=== PATIENT | female | born 1980 ===

== ENCOUNTER 2019-08-26 08:16 | Outpatient (CLI) | payer OTHER, SELFPAY ==
--- NOTE | ~2019-08-26 | CT_ITS ---
EXAMINATION: CT chest wo con EXAM DATE: 08/26/2019 08:46 INDICATION: Solitary pulmonary nodule. Reflux. TECHNIQUE: Spiral CT of the chest without contrast. Axial, coronal and sagittal images were reviewe d. Coronal maximum intensity pixel images of chest reviewed. The dose-length product (DLP) for this examination was 117.52 mGy-cm. The exposure was tailored according to patient size (auto mA exposur e control), and iterative reconstruction (ASIR) was used as additional dose reduction technique. The re is no prior study for comparison. FINDINGS: The lungs are clear. There are no pleural or pericardial effusions. Tracheobronchial t ree is patent. There is no mediastinal, hilar or axillary lymphadenopathy. There is no pneumothor ax. Heart normal in size. No evidence of coronary arterial calcification. Upper abdomen is unrem arkable. The bones are unremarkable. IMPRESSION: 1. Unremarkable CT chest exam. Reviewed, dictated and finalized at location B.
== END 2019-08-26 08:17 | disposition home or self-care (01) ==
PROVIDERS: PCP Emergency Medicine; Visit Provider Emergency Medicine
DX: R91.1 Solitary pulmonary nodule (principal)
CPT/HCPCS: 71250

== ENCOUNTER 2022-09-24 23:15 | Emergency (ER) | payer MEDICARE, MEDICAID, SELFPAY ==
--- NOTE | ~2022-09-24 | XR_ITS ---
Clinical Indication: Chest pain PA and lateral views of the chest: Comparison: None Findings: The lungs are clear, without evidence of focal consolidation or pleural effusion. Cardiome diastinal silhouette is within normal limits. Bones and soft tissues are unremarkable. Impression: Normal chest. Reviewed, dictated and finalized at location . Impression: Normal chest.
--- NOTE | 2022-09-24 23:17 | ECG_ITS ---
Measurements Intervals [place] Rate: 74 P: 33 [place]: 164 QRS: 59 QRSD: 102 T: 41 QT: 392 QTc: 437 Interpretive Statements SINUS RHYTHM NONSPECIFIC T-WAVE ABNORMALITY NO PREVIOUS ECG AVAILABLE FOR COMPARISON Electronically Signed On 09-25-2022 13:58:13 CDT by Kat Gómez M.D.
[2022-09-24 23:30] VITALS: BP 162/105; PULSE 67; RESP 16; TEMP 36.6; O2SAT 100
[2022-09-25] VITALS (8 sets, daily range): BP systolic 173; BP diastolic 109; PULSE 69; RESP 19; O2SAT 97–100
[2022-09-25 00:36] LABS: Basophils Absolute Auto 0.1 K/mm3 (0.0-0.1); Basophils Percent Auto 0.5 % (0.2-1.2); Eosinophils Absolute Auto 0.3 K/mm3 (0-0.3); Eosinophils Percent Auto 2.8 % (0-4.4); Hematocrit 36.3 % (37.0-47.0); Hemoglobin 11.3 g/dL (12.0-15.0); Immature Granulocyte Absolute 0.04 K/mm3 (0.00-0.031); Immature Granulocyte Percent A 0.4 % (0-0.5); Lymphocytes Absolute Auto 2.69 K/mm3 (0.9-3.2); Lymphocytes Percent Auto 28.3 % (18.3-44.2); Mean Corpuscular HGB Conc 31.1 g/dl (32-36); Mean Corpuscular Hemoglobin 25.5 pg (26-34); Mean Corpuscular Volume 81.8 fl (80-100); Mean Platelet Volume 10.2 fl (7.4-10.4); Monocytes Absolute Auto 0.6 K/mm3 (0.1-0.6); Neutrophils Absolute Auto 5.9 K/mm3 (1.3-6.7); Platelet Count Result 358 k/mm3 (150-375); Red Blood Count 4.44 M/mm3 (4.2-5.4); Red Cell Distribution Width 15.6 % (11.5-14.5); White Blood Count 9.5 K/mm3 (4.5-10.0)
[2022-09-25 00:42] LABS: INR 1.1; Prothrombin Time 14.4 Seconds (11.1-14.7)
[2022-09-25 00:43] LABS: Partial Thromboplastin Time 33.1 SECONDS (22.3-36.8)
[2022-09-25 00:44] LABS: Alanine Aminotransferase 20 U/L (6-35); Albumin Level 4.3 g/dL (3.5-5.1); Alkaline Phosphatase 65 U/L (38-126); Anion Gap 3 mmol/L (8-16); Aspartate Amino Transferase 29 U/L (14-36); Bilirubin,Total 0.3 mg/dL (0.2-1.3); Blood Urea Nitrogen 6 mg/dL (7-17); Calcium 8.7 mg/dL (8.4-10.2); Carbon Dioxide 30 mmol/L (22-30); Chloride 102 mmol/L (98-107); Estimated CRCL calculation 100 ml/min; Estimated Glomerular Filt Rate > 60; Glucose 98 mg/dL (65-110); Lipase 60 U/L (23-300); Potassium 3.1 mmol/L (3.4-5.0); Sodium 135 mmol/L (137-145)
[2022-09-25 00:56] LABS: Troponin I 0.026 ng/mL (0.000-0.034)
--- NOTE | 2022-09-25 01:17 | ED.GENADULT ---
HPI - General Adult General Chief complaint: Headache Stated complaint: chest pain, headaches Time Seen by Provider: 09/25/22 00:43 Source: patient Mode of arrival: ambulatory Limitations: no limitations History of Present Illness HPI narrative: This is a 42-year-old female who presents to the ED with multiple complaints. Patient states her primary complaint today is headache that is similar to her past migraines. She states she had some blurry vision earlier that has resolved. She also reports pain in her eyes. Headache was gradual in onset today. Denies any head injury or LOC. Denies numbness, weakness or other neurologic symptoms. He has secondary complaints of chest pain. She states that she has had 2 failed attempts at treating her H. pylori infection. She describes her chest pain more as a burning sensation. She feels it is likely related to her H. pylori. She states she did not take her omeprazole today. No association with exertion. Denies shortness of breath, cough, fevers, chills, leg swelling. Related Data Allergies Allergy/AdvReac Type Severity Reaction Status Date / Time No Known Allergies Allergy Verified 09/25/22 01:49 Exam Narrative: GENERAL: Well-appearing, well-nourished, and in no acute distress. HEAD: Normocephalic, atraumatic. EYES: PERRLA and EOMI. ENT: Nares clear, no rhinorrhea or epistaxis. Mucous membranes moist. Oropharynx without tonsillar hypertrophy exudate or other lesions. NECK: Supple. No adenopathy or masses. CHEST: No respiratory distress. Clear to auscultation. No wheezes rales or rhonchi HEART: Regular rate and rhythm. No murmur heard. Normal peripheral pulses. ABDOMEN: Soft, nontender, nondistended, normal active bowel sounds. MSK: Normal range of motion. No edema. SKIN: Warm, dry, no rash. NEURO: Alert and oriented x3. No focal deficits. PSYCH: Normal mood and affect. Course Vital Signs Vital signs: Vital Signs Temperature 97.8 F 09/24/22 23:30 Pulse Rate 67 09/24/22 23:30 Respiratory Rate 16 09/24/22 23:30 Blood Pressure 162/105 H 09/24/22 23:30 Pulse Oximetry 100 09/24/22 23:30 Oxygen Delivery Room Air 09/24/22 23:30 Temperature 97.8 F 09/24/22 23:30 Pulse Rate 67 09/24/22 23:30 Respiratory Rate 16 09/24/22 23:30 Blood Pressure 162/105 H 09/24/22 23:30 Pulse Oximetry 100 09/24/22 23:30 Oxygen Delivery Room Air 09/24/22 23:30 Medical Decision Making MDM Narrative Medical decision making narrative: This is a 42-year-old female who presents to the ED with chief complaint of migraine headache and chest pain. Headache started today gradually. Chest pain is chronic. Vitals are normal. Exam is benign. ECG shows sinus rhythm with no acute ischemic findings. PERC negative. Heart score is 1. Troponin negative. Lab work unremarkable. Her chest pain is likely consistent with GERD. Migraine controlled with headache cocktail here. Fluids given as well. Upon reevaluation she is feeling much better ready to go home. Advised that she follow-up with her PCP regarding headaches. Return precautions given and supportive measures for home discussed. She is understanding and agreeable with the plan for discharge and follow-up with PCP. Vital Signs Vital Signs: Vital Signs Temperature 97.8 F 09/24/22 23:30 Pulse Rate 67 09/24/22 23:30 Respiratory Rate 16 09/24/22 23:30 Blood Pressure 162/105 H 09/24/22 23:30 Pulse Oximetry 100 09/24/22 23:30 Oxygen Delivery Room Air 09/24/22 23:30 Temperature 97.8 F 09/24/22 23:30 Pulse Rate 67 09/24/22 23:30 Respiratory Rate 16 09/24/22 23:30 Blood Pressure 162/105 H 09/24/22 23:30 Pulse Oximetry 100 09/24/22 23:30 Oxygen Delivery Room Air 09/24/22 23:30 Lab Data 09/25/22 00:15 09/25/22 00:15 Labs: Lab Results 09/25/22 Range/Units 00:15 WBC 9.5 (4.5-10.0) K/mm3 RBC 4.44 (4.2-5.4) M/mm3 Hgb
[2022-09-25] MEDS: diphenhydrAMINE HCl INJ 50 MG/ML VIAL 25 MG IV PUSH (01:42)
[2022-09-25] MEDS: BELLADONNA ALK/PHENOB ELIX 10 ML, MAG HYDROX/ALUMINUM HYD/SIMETH 30 ML, LIDOCAINE HCL 2... PO (01:43)
[2022-09-25] MEDS: SODIUM CHLORIDE 0.9% IV 1,000 ML 999 ML IV CONT (01:43)
[2022-09-25] MEDS: KETOROLAC 15 MG/ML VIAL (*BKC) IV PUSH (02:45)
[2022-09-25] MEDS: PROCHLORPERAZINE EDISYLATE 10 MG/2 ML VIAL IV PUSH (02:54)
[2022-09-25 03:34] LABS: Troponin I 0.025 ng/mL (0.000-0.034)
== END 2022-09-25 03:38 | disposition home or self-care (01) ==
PROVIDERS: Emergency Medicine; Emergency Provider Physician Assistant; PCP Family Medicine
DX: R51.9 Headache, unspecified (principal); R07.9 Chest pain, unspecified
CPT/HCPCS: 36415; 71046; 80053; 83690; 84484; 85025; 85610; 85730; 93005; 96361; 96374; 96375; 99284; A9270; J0780; J1200; J1885; J7030

== ENCOUNTER 2023-09-22 10:24 | Emergency (ER) | payer MEDICARE, MEDICAID, SELFPAY ==
[2023-09-22 10:49] VITALS: BP 154/110; PULSE 93; RESP 16; TEMP 36.4; O2SAT 99
[2023-09-22 10:52] LABS: EDUAAPPEAR Clear; EDUABILI Negative; EDUABLOOD Trace; EDUACOLOR1 Yellow; EDUAGLUCOSE Negative; EDUAKETONE Negative; EDUALEUKO Negative; EDUANITRATE Negative; EDUAPROTEIN Negative; EDUASPGRAVITY 1.015; EDUAUROBILI 0.2
--- NOTE | 2023-09-22 10:59 | ED.FEMALEGU ---
HPI - Female Genitourinary General Chief complaint: Urogenital-Female Stated complaint: urinary issue,abdominal pain Time Seen by Provider: 09/22/23 10:52 Source: patient and RN notes reviewed Mode of arrival: ambulatory Limitations: no limitations History of Present Illness HPI Narrative: Patient presents today complaining of a one-week history of malodorous urine, urgency, frequency, voiding small amounts. Symptoms have worsened over the past 3 days. Patient states she does have some chronic pelvic pain due to fibroids, and this is no worse than normal. No fever, nausea or vomiting, sweats or chills. Related Data Home Medications Medication Instructions Recorded Confirmed atenolol 50 mg tablet 50 mg PO DAILY 09/22/23 09/22/23 Allergies Allergy/AdvReac Type Severity Reaction Status Date / Time No Known Allergies Allergy Verified 09/25/22 01:49 Review of Systems Review of Systems: CONSTITUTIONAL: Denies body aches, fever, chills, or sweats. EYES: Denies visual changes, redness, or discharge. ENT: Denies rhinorrhea, congestion, sore throat, or otalgia. CARDIOVASCULAR: Denies chest pain, palpitations, or edema. RESPIRATORY: Denies cough or dyspnea. GASTROINTESTINAL: Denies abdominal pain, nausea, vomiting, or diarrhea. GENITOURINARY: + urgency, frequency, malodorous urine SKIN: Denies rash, itching, or wounds. MUSCULOSKELETAL: Denies back pain, joint pain, or myalgia. NEUROLOGIC: Denies headache, numbness, tingling, or weakness. PSYCH: Denies depression or anxiety. [facility] Past Medical History Medical History (Updated 09/22/23 @ 11:02 by Elida Jiménez, [facility], ) Uterine fibroid Comments At time of signature, I have reviewed and agree with nursing past medical, surgical, social and family history unless otherwise noted. Please see nursing chart for further information. There is no relevant family history pertinent to the presenting complaint Exam Narrative: GENERAL: Well-appearing, well-nourished, and in no acute distress. HEAD: Normocephalic, atraumatic. EYES: EOMI. No redness or drainage. Conjunctivae normal. ENT: Mucous membranes pink and moist. NECK: Normal AROM. CHEST: No respiratory distress. Clear to auscultation. HEART: Regular rate and rhythm. No murmur appreciated. Normal peripheral pulses. ABDOMEN: Soft, nondistended, normal active bowel sounds.+ suprapubic tenderness EXTREMITIES: Normal range of motion. No edema. SKIN: Warm, dry, no rash. Capillary refill normal. Normal skin turgor. NEURO: No focal deficits. Alert and oriented x3. Gait steady. PSYCH: Normal affect. No signs of depression or anxiety. Course Course Level of Care: Express Care Visit Vital Signs Vital signs: Vital Signs Temperature 97.5 F L 09/22/23 10:49 Pulse Rate 93 09/22/23 10:49 Respiratory Rate 16 09/22/23 10:49 Blood Pressure 154/110 H 09/22/23 10:49 Pulse Oximetry 99 09/22/23 10:49 Oxygen Delivery Room Air 09/22/23 10:49 Temperature 97.5 F L 09/22/23 10:49 Pulse Rate 88 09/22/23 11:12 Respiratory Rate 18 09/22/23 11:12 Blood Pressure 182/112 H 09/22/23 11:12 Pulse Oximetry 99 09/22/23 11:12 Oxygen Delivery Room Air 09/22/23 11:12 Reviewed. Patient states she is on blood pressure medication and takes as directed MDM - Female Genitourinary MDM Narrative Medical decision making narrative: Urinalysis shows hematuria. She is not currently menstruating. Symptomatology with hematuria is consistent with UTI. Will start patient on a course of Augmentin while culture is pending. Anticipatory guidance given. Differential Diagnosis Differential diagnosis: Likely urinary tract infection, vaginitis and cystitis Lab Data Labs: Lab Results 09/22/23 Range/Units 10:50 POC Urine Color Yellow POC Urine Clarity Clear POC Urine pH 6.0 POC Ur Specif [place] 1.015 POC Urine Protein Negative POC Ur Glucose (UA) Negative POC Urine Ket
[2023-09-22 11:12] VITALS: BP 182/112; PULSE 88; RESP 18; O2SAT 99
== END 2023-09-22 11:11 | disposition home or self-care (01) ==
PROVIDERS: Emergency Provider Nurse Practitioner; PCP Family Medicine
DX: N30.01 Acute cystitis with hematuria (principal)
CPT/HCPCS: 81003; 87086; 99213; G0463

== ENCOUNTER 2023-12-01 20:59 | Emergency (ER) | payer MEDICARE, MEDICAID, SELFPAY ==
[2023-12-01 21:13] VITALS: BP 176/102; PULSE 86; RESP 16; TEMP 36.6; O2SAT 100
--- NOTE | 2023-12-01 22:43 | ED.SKABFB ---
HPI - Skin/Abscess/Foreign Bdy General Chief complaint: Skin/Abscess/Foreign Body Stated complaint: R big toe ingrown nail Time Seen by Provider: 12/01/23 22:20 History of Present Illness HPI narrative: 43-year-old female with history of hypertension presents to the emergency department for right great toe pain and concerns for an ingrown toenail for 3 days. Patient states she has a history of ingrown toenails of this toe and she was seen by a photo intern previously for it. States it began causing her issues 3 days ago. She denies fever, vomiting. Related Data Home Medications Medication Instructions Recorded Confirmed atenolol 50 mg tablet 50 mg PO DAILY 09/22/23 09/22/23 Allergies Allergy/AdvReac Type Severity Reaction Status Date / Time No Known Allergies Allergy Verified 12/01/23 21:02 Review of Systems Review of Systems: All systems reviewed & are unremarkable except as noted in HPI and below PMFSH Past Medical History Medical History Uterine fibroid Exam Narrative: GENERAL: Well-appearing, well-nourished, and in no acute distress. HEAD: Normocephalic, atraumatic. EYES: EOMI. ENT: Nares clear, no rhinorrhea or epistaxis. Mucous membranes moist. NECK: Supple. CHEST: Clear to auscultation. No respiratory distress. HEART: Regular rate and rhythm. No murmur heard. Normal peripheral pulses. EXTREMITIES: Normal range of motion. No edema. SKIN: right great toe with paronychia to the lateral nail fold with a focal area of fluctuance that is actively draining purulence. There is surrounding erythema, it is tender to palpation. Ingrown toenail to the lateral nail fold. Patient has full range of motion of toe, cap refills less than 2. Sensation intact. NEURO: No focal deficits. Alert and oriented x3 Course Vital Signs Vital signs: Vital Signs Temperature 98 F 12/01/23 21:13 Pulse Rate 86 12/01/23 21:13 Respiratory Rate 16 12/01/23 21:13 Blood Pressure 176/102 H 12/01/23 21:13 Pulse Oximetry 100 12/01/23 21:13 Temperature 98 F 12/01/23 21:13 Pulse Rate 86 12/01/23 21:13 Respiratory Rate 16 12/01/23 21:13 Blood Pressure 176/102 H 12/01/23 21:13 Pulse Oximetry 100 12/01/23 21:13 MDM - Skin/Abscess/Foreign Bdy MDM Narrative Medical decision making narrative: 33-year-old female with history of ingrown toenails and paronychia as presents to emergency department for pain to her right toe for 3 days. Triage vitals with hypertension 176/2. Patient does have history of hypertension and takes lisinopril as directed. On exam she is found have an ingrown toenail and paronychia to the right great toe of the lateral nail fold. It is spontaneously draining purulence and I was able to express remainder purulence with manual manipulation I discussed close follow-up with her photo intern. Will start her on Augmentin. Strict ED return precautions discussed. She is agreeable to plan verbalized understanding. Discharged in stable condition. Discharge Plan Discharge Clinical Impression: Paronychia Patient Disposition: Home, Self-Care Condition: Stable Instructions: Antibiotic Form, Paronychia (ED) Additional Instructions: Please take the antibiotics as directed follow-up with your photo intern. Return to the emergency department if you develop a fever, significantly worsening pain, or other concerning symptoms. Prescriptions: New amoxicillin-pot clavulanate 875-125 mg tablet 1 tablet PO Q12H Qty: 14 0RF No Action atenolol 50 mg tablet 50 mg PO DAILY amoxicillin-pot clavulanate 875-125 mg tablet 1 tablet PO Q12H 7 Days Qty: 14 0RF Follow-up/Referrals: Jennifer,MD George [Primary Care Provider] -
[2023-12-01] MEDS: AMOXICILLIN/CLAVULANATE K 875-125 MG TAB 1 TABLET PO (23:09)
[2023-12-01] MEDS: KETOROLAC 30 MG/ML VIAL (*BKC) IM (23:12)
== END 2023-12-01 23:15 | disposition home or self-care (01) ==
LOC: ANHED 22:55
PROVIDERS: Emergency Provider Physician Assistant; PCP Family Medicine
DX: L03.031 Cellulitis of right toe (principal)
CPT/HCPCS: 96372; 99283; A9270; J1885

== ENCOUNTER 2024-09-13 07:58 | Emergency (ER) | payer MEDICARE, MEDICAID, SELFPAY ==
--- OUTSIDE RECORDS SUMMARY | 2024-09-13 08:00 | XMS_ITS | Patient Health Record ---
Author Organization [facility], [facility] Address [address] [address] Care Team Providers Care Safety Director Name Role Phone Florentino Barone Primary Care Provider [phone] Reason For Referral No Information Medications Medication SIG (Take, Route, Frequency, Duration) Notes Start Date End Date Status Meloxicam 7.5 MG 1 tablet Orally Once a day Active Dexilant 60 MG 1 capsule Orally Onc e a day Active PARoxetine HCl 30 MG 1 tablet in the mor collins Orally Once a day Active Gabapentin 300 MG 1 capsule Orally Thr ee times a day Active Iron 1 tablet Orally thre e times a day Active Zolpidem Tartrate 5 MG 1 tablet at bedti me Orally Once a day Active SUMAtriptan Succinate 25 MG 1 tablet as needed Orally Once a day Active tiZANidine HCl 2 MG 1 tablet as needed O rally twice a day Active Ranitidine HCl 300 MG 1 tablet at bedtim e Orally Once a day Active Social History Tobacco Use: Social History Observation Description Date Details (start date - stop date) Never Smoker NA - NA Tobacco Use/Smoking Question Answer Notes Are you a nonsmoker Additional Findings: Tobacco Non-User Current no n-smoker Tobacco use other than smoking: Question Answer Notes Are you an other tobacco user? No Problems Problem Type SNOMED Code ICD Code Onset Dates Problem Status W/U Status Risk Notes Problem 0254176 Primary insomnia (F51.01) Active confirmed Problem 309077585952519 Pain in thoracic spine (M54.6) Active confirmed Problem 44781571 Anxiety (F41.9) Active confirmed Problem 047631920 Gastroesophageal reflux disease without esophagitis (K21.9) Active confirmed Problem 4145614 Migraine with au ra and without status migrainosus, not intractable (G43.109) Active confirmed Problem 23469631 Kidney stone (N20.0) Active confirmed Plan Of Treatment No Information Insurance Providers Payer Name Payer Address Payer Phone Subscriber Number Group Number Insured Name Patient Relationship to Insured Coverage Start Date Coverage End Date [facility] [address] [place] [address] [phone] [id number] FRANK BRANHAM Self - patient is the insured 8 Medical (General) History Medical History History ICD Code Vertigo hypertension MVP GERD kidney stones BV chronic yeast ovarian cyst back injury endometriosis cervical/lumber disc disease anemia H Pylori migraines chronic headaches peripheral neuropathy anxiety depression
--- OUTSIDE RECORDS SUMMARY | 2024-09-13 08:00 | XMS_ITS | Data Portability ---
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 Plan of Treatment Reminders Order Date Submit Date Provider Last Modified By Organization Details Last Modified Time Details Appointments None recorded. Lab bacterial vaginosis + vaginitis panel, vaginal 2024 025 [facility] [address] [place] [address], [address], 5 14:10:53 urinalysis, dipstick 2024 025 kdominick 1 [facility], [address] [place], [address], 5 10:16:44 culture, urine 2024 025 [facility], [address] [place], [address], 5 01:25:47 HIV 1+2 Ab + HIV1 p24 Ag, quantitativ e immunoassay , serum 2023 024 [facility], [address] [place], [address], 4 15:01:50 RPR (rapid plasma reagin), serum 2023 024 [facility], [address] [place], [address], 4 15:01:50 hepatitis C virus Ab, serum 2023 024 [facility], [address] [place], [address], 4 15:01:49 HBsAg (hepatitis B surface Ag), serum 2023 024 [employer], [address] [place], [address], 4 15:01:48 CT + NG DNA, PCR, unspecified specimen 2023 024 [facility], [address] [place], [address], 4 10:17:41 HPV E6+E7 mRNA, qualitative PCR, cervix 2023 024 [facility], [address] [place], [address], 4 14:49:41 pap, LB 2023 024 [facility], [address] [place], [address], 4 15:01:47 bacterial vaginosis + vaginitis panel, vaginal 2022 023 [facility], [address] [place], [address], 3 16:08:10 wet mount 2022 023 [facility], [address] [place], [address], 3 17:36:08 bacterial vaginosis + vaginitis panel, vaginal 2022 023 [facility], [address] [place], [address], 3 16:11:18 Referral None recorded. Procedures None recorded. Surgeries None recorded. Imaging None recorded. Medication Orders Pyridium 100 mg tablet 2024 025 [id number], [address] , [place], [place], [id number], 5 05:02:26 Macrobid 100 mg capsule 2024 025 kdominick 1 [facility][id number], [address] , [place], [place], [id number], 5 10:16:43 Patient TargetsNo targets recorded. Patient InstructionsNo instructions recorded. Reason for Referral None Reported. Results Created Date Observation Date Name Description Value Unit Range Abnormal Flag Note LastModifiedBy Organization Detail LastModifiedTime 08/06/19 24 08/06/2023 THINP REP TIS PAP clinical information: normal None given Not Available [facility] [address], [address], 08/06/2023 15:01:47 08/06/19 24 08/06/2023 THINP REP TIS PAP LMP: normal None given Not Available [facility] [address] [place], [address], 08/06/2023 15:01:47 08/06/19 24 08/06/2023 THINP REP TIS PAP prev. Pap: normal None given Not Available [facility] [address] [place], [address], 08/06/2023 15:01:47 08/06/19 24 08/06/2023 THINP REP TIS PAP prev. BX: normal None given Not Available [facility] [address] [place], [address], 08/06/2023 15:01:47 08/06/19 24 08/06/2023 THINP REP TIS PAP source: normal Cervi x Not Available [facility] [address] [place], [address], 08/06/2023 15:01:47 08/06/19 24 08/06/2023 THINP REP TIS PAP statement of adequacy: normal Satis facto ry for evalu ation . Endoc ervic al/tr ansfo rmati on zone compo nent absen t. Age and/o r menst rual statu s not provi ded Not Available [facility] [address], [place], [address], 08/06/2023 15:01:47 08/06/19 24 08/06/2023 THINP REP TIS PAP interpretati on/result: normal Cytol ogy Resul ts: Negat rocael for intra epith elial lesio n or malig pk . Not Available [facility] [address], [place], [address], 08/06/2023 15:01:47 08/06/19 24 08/06/2023 THINP REP TIS PAP comment: normal This Pap test has been evalu ated with compu ter major juaquin techn ology . Not Available [facility] [address], [place], [address], 08/06/2023 15:01:47 08/06/19 24 08/06/2023 THINP REP TIS PAP cytotechnolo gist: normal GARCIA, CT( CP) CT Scree collins locat ion: [address] [place] [address] Not Available [facility] [address] [place], [address], 08/06/2023 15:01:47 08/06/19 24 08/06/2023 THINP REP TIS PAP comment EXPLA NATOR Y NOTE: The Pap is a scree collins test for cervi mookie cance r. It is not a diagn ostic test and is subje ct to false negat rocael and false posit rocael resul ts. It is most relia ble when a satis facto ry sampl e, regul elva obtai ary, is submi tted with relev ant clini mookie findi ngs and histo ry, and when the Pap resul t is evalu ated along with histo cindy and curre nt clini mookie infor matio n. Not Available [address], [address], 08/06/2023 15:01:47 08/06/19 24 08/06/2023 HEPAT ITIS B SURFA CE ANTIG EN W/REF L CONFI RM hepatitis B surface antigen NON-RE ACTIVE non-re active normal For addit ional infor aaron salinas, leana e refer to http: //[facility] n.du stdia gnost ics.c om/fa q/FAQ 202 (This link is being provi ded for infor matio nal/ educa courtney l purpo ses only. ) Not Available [facility] [address] [place], [address], 08/06/2023 15:01:48 08/06/19 24 08/06/2023 HEPAT ITIS C AB W/REF L TO HCV RNA, QN, PCR hepatitis C antibody NON-RE ACTIVE non-re active normal HCV antib sandhya was non-r eacti ve. There is no labor atory evide nce of HCV infec tion. In most cases , no furth er actio n is requi red. Howev er, if recen t HCV expos ure is suspe cted, a test for HCV RNA (test code 75849 ) is sugge sted. For addit ional infor matjay n pleas e refer to http: //[facility] stdia gnost ics.c om/fa q/FAQ 22v1 (This link is being provi ded for infor matio nal/ educa courtney l purpo ses only. ) Not Available [facility] [place] [address] [place], [address], 08/06/2023 15:01:49 06/11/20 24 08/06/2023 HIV 1/2 ANTIG EN/AN TIBOD Y,FOU RTH GENER ATION W/RFL HIV Ag/Ab, 4TH gen NON-RE ACTIVE non-re active normal HIV-1 antig en and HIV-1 /HIV- 2 antib odies were not detec juaquin. There is no labor atory evide nce of HIV infec tion. PLEAS E NOTE: This infor matio n has been discl osed to you from recor ds whose confi denti ality may be prote cted by state law. If your state requi res such prote ction , then the state law prohi bits you from mehrdad nino furth er discl osure of the infor matio n witho ut the speci fic writt en conse nt of the perso n to whom it perta ins, or as other maldonado permi tted by law. A gener al autho rizat ion for the relea se of medic al or other infor matio n is NOT suffi cient for this purpo se. For addit ional infor matio n pleas e refer to http: //[facility] catjay n.que stdia gnost ics.c om/fa q/FAQ 106 (This link is being provi ded for infor matio nal/ educa courtney l purpo ses only. ) The perfo rmanc e of this assay has not been clini kirti valid ated in patie nts less than 2 years old. Not Available [facility] [address] [place] [address], [address], 08/06/2023 15:01:50 08/06/19 24 08/06/2023 RPR (DX) W/REF L TITER AND T. PALLI DUM AB, IA RPR (DX) w/refl titer and confirmatory testing NON-RE ACTIVE non-re active normal No labor atory evide nce of syphi lis. If recen t expos ure is suspe cted, submi t a new sampl e in 2-4 weeks . NO COLLE CTION DATE RECEI ANN. WE HAVE USED THE DATE THE SPECI MEN WAS RECEI ANN BY THIS LABOR ATORY THE COLLE CTION DATE. IF THIS IS INCOR RECT, PLEAS E CONTA CT CLIEN T SERVI MARÍA. PHONE NUMBE R: [phone] Not Available [facility] [address] [place], [address], 08/06/2023 15:01:50 12/07/19 23 12/10/2022 VAGIN ITIS PLUS STD PANEL bacterial vaginosis BV neg negati ve normal Not Available [address], [address], 12/10/2022 16:11:18 12/07/1912/10/2022 VAGIN ITIS PLUS STD PANEL richi species C. spp neg negati ve normal Not Available [address], [address], 12/10/2022 16:11:18 12/07/1912/10/2022 VAGIN ITIS PLUS STD PANEL richi glabrata C. gla neg negati ve normal Not Available [address], [address], 12/10/2022 16:11:18 12/07/1912/10/2022 VAGIN ITIS PLUS STD PANEL trichomonas vaginalis CV/TV TRICH neg negati ve normal Not Available [address], [address], 12/10/2022 16:11:18 12/07/1912/10/2022 VAGIN ITIS PLUS STD PANEL chlamydia trachomatis CT neg negati ve normal This repor t is inten ded for us in clini mookie monit oring and manag ement of paticary nts. It is not inten ded for use in medic al-le gal appli catio n. Not Available [address], [address], 12/10/2022 16:11:18 12/07/1912/10/2022 VAGIN ITIS PLUS STD PANEL neisseria gonorrhoeae GC neg negati ve normal This repor t is inten ded for us in clini mookie monit oring and manag ement of patie nts. It is not inten ded for use in medic al-le gal appli catio n. Not Available [facility] [address] [place], [address], 12/10/2022 16:11:18 02/08/20 23 02/08/2023 VAGIN ITIS PLUS STD PANEL bacterial vaginosis BV neg negati ve normal Not Available [facility] [address] [place] [address], [address], 02/08/2023 16:08:10 02/08/20 23 02/08/2023 VAGIN ITIS PLUS STD PANEL richi species C. spp neg negati ve normal Not Available [facility] [address] [place] [address], [address], 02/08/2023 16:08:10 02/08/20 23 02/08/2023 VAGIN ITIS PLUS STD PANEL richi glabrata C. gla neg negati ve normal Not Available [facility] [address] [place] [address], [address], 02/08/2023 16:08:10 02/08/20 23 02/08/2023 VAGIN ITIS PLUS STD PANEL trichomonas vaginalis CV/TV TRICH neg negati ve normal Not Available [address], [address], 02/08/2023 16:08:10 02/08/20 23 02/08/2023 VAGIN ITIS PLUS STD PANEL chlamydia trachomatis CT neg negati ve normal This repor t is inten ded for us in clini mookie monit oring and manag ement of patie nts. It is not inten ded for use in medic al-le gal appli catio n. Not Available [facility] [address] [place], [address], 02/08/2023 16:08:10 02/08/20 23 02/08/2023 VAGIN ITIS PLUS STD PANEL neisseria gonorrhoeae GC neg negati ve normal This repor t is inten ded for us in clini mookie monit oring and manag ement of patie nts. It is not inten ded for use in medic al-le gal appli catio n. Not Available [facility] [address] [place], [address], 02/08/2023 16:08:10 02/08/20 23 02/07/2023 wet mount Trichomonias is None Not Available [facility] [address] [place], [address], 02/07/2023 17:16:01 02/08/20 23 02/07/2023 wet mount Yeast None Not Available [facility] [address] [place] [address], [address], 02/07/2023 17:16:01 02/08/20 23 02/07/2023 wet mount Clue Cells None Not Available [address], [address], 02/07/2023 17:16:01 08/01/19 24 08/01/2023 CT/NG CT/NG merged to [id number] Not Available [facility] [address] [place], [address], 08/03/2023 10:17:40 08/01/19 24 08/05/2023 CT/NG chlamydia trachomatis CT neg negati ve normal This repor t is inten ded for us in clini mookie monit oring and manag ement of patie nts. It is not inten ded for use in medic al-le gal appli catio n. Not Available [facility] [address] [place], [address], 08/05/2023 14:49:41 08/01/19 24 08/05/2023 CT/NG neisseria gonorrhoeae GC neg negati ve normal This repor t is inten ded for us in clini mookie monit oring and manag ement of patie nts. It is not inten ded for use in medic al-le gal appli catio n. Not Available [facility] [address] [facility], [place], [address], 08/05/2023 14:49:41 08/01/19 24 08/05/2023 HPV HIGH RISK HPV high risk Negati ve negati ve normal The HPV High Risk assay is inten ded for use as co-te sting with cytol ogy and not as a subst itute for regul ar cervi mookie cytol ogy scree collins. This assay is not inten ded for use as a scree collins devic e for women under age 30 with sally l cervi mookie cytol ogy. Not Available [address], [place], [address], 08/05/2023 14:49:41 09/05/19 25 09/06/2024 CULTU RE, URINE , ROUTI NE culture, urine, routine SEE NOTE CULTU RE, URINE , ROUTI NE Micro Numbe r: [id number] Test Statu s: Final Speci men Sourc e: Urine Speci men Quali ty: Adequ ate Resul t: Mixed genit al gaurav isola juaquin. These super ficia l bacte reinaldo are not indic ative of a urina ry tract infec tion. No furth er organ ism ident ifica tion is warra nted on this speci men. If clini kirti indic ated, recol lect clean -catc h, mid-s tream urine and trans dung immed iatel y to Urine Cultu re Trans port Tube. Not Available [facility] [address] [address], [place], [address], 09/06/2024 01:25:47 09/05/19 25 09/07/2024 VAGIN ITIS PLUS STD PANEL bacterial vaginosis BV neg negati ve normal Not Available [facility] [address] [facility], [place], [address], 09/07/2024 14:10:53 09/05/19 25 09/07/2024 VAGIN ITIS PLUS STD PANEL richi species C. spp neg negati ve normal Not Available [address], [address], 09/07/2024 14:10:53 09/05/19 25 09/07/2024 VAGIN ITIS PLUS STD PANEL richi glabrata C. gla neg negati ve normal Not Available [address], [address], 09/07/2024 14:10:53 09/05/19 25 09/07/2024 VAGIN ITIS PLUS STD PANEL trichomonas vaginalis CV/TV TRICH neg negati ve normal Not Available [address], [address], 09/07/2024 14:10:53 09/05/19 25 09/07/2024 VAGIN ITIS PLUS STD PANEL chlamydia trachomatis CT neg negati ve normal This repor t is inten ded for us in clini mookie monit oring and manag ement of patie nts. It is not inten ded for use in medic al-le gal appli catio n. Not Available [address], [address], 09/07/2024 14:10:53 09/05/19 25 09/07/2024 VAGIN ITIS PLUS STD PANEL neisseria gonorrhoeae GC neg negati ve normal This repor t is inten ded for us in clini mookie monit oring and manag ement of patie nts. It is not inten ded for use in medic al-le gal appli catio n. Not Available [address], [address], 09/07/2024 14:10:53 09/05/19 25 09/04/2024 urina lysis , dipst ick Leukocytes Negati ve Not Available [facility] [address] [place], [address], 09/04/2024 09:52:16 09/05/19 25 09/04/2024 urina lysis , dipst ick Nitrite negati ve Not Available [address], [place], [address], 09/04/2024 09:52:16 09/05/1909/04/2024 urina lysis , dipst ick Protein 30 Not Available [address], [place], [address], 09/04/2024 09:52:16 09/05/1909/04/2024 urina lysis , dipst ick pH 6.5 Not Available [address], [place], [address], 09/04/2024 09:52:16 09/05/1909/04/2024 urina lysis , dipst ick Blood Small Not Available [address], [place], [address], 09/04/2024 09:52:16 09/05/1909/04/2024 urina lysis , dipst ick Specific [place] 1.000 Not Available [address], [place], [address], 09/04/2024 09:52:16 09/05/1909/04/2024 urina lysis , dipst ick Ketone Small Not Available [address], [place], [address], 09/04/2024 09:52:16 09/05/1909/04/2024 urina lysis , dipst ick Bilirubin Negati ve Not Available [address], [place], [address], 09/04/2024 09:52:16 09/05/1909/04/2024 urina lysis , dipst ick Glucose Negati ve Not Available [address], [address], 09/04/2024 09:52:16 09/05/1909/04/2024 urina lysis , dipst ick Appearance Slight ly Cloudy Not Available [address], [address], 09/04/2024 09:52:16 09/05/1909/04/2024 urina lysis , dipst ick Color Pale Yellow Not Available [address], [address], 09/04/2024 09:52:16 09/05/1908/27/2024 MAMMO , scree collins, tomos ynthe sis, bilat eral No observ ation record ed. [place] [address] [place], [address], 09/09/2024 14:34:51 Result Notes None recorded. Problems Name Problem SNOMED Code Status Onset Date Resolution Date Notes Provider Name and Address Organization Details Recorded Time Sampling of vagina for Papanico laou smear Completed 201809/12/2020 Encounte r for gynecolo gical examinat ion (general ) (routine ) without abnormal findings ; Progress : Stable Added By: Lyssa Maloney Add to Current Problems : NO ProblemS tatus: Resolve Not Available [facility] 2 19:24:01 Screenin g for malignan t neoplasm of cervix Completed 201809/12/2020 Encounte r for screenin g for malignan t neoplasm of cervix; Progress : Stable Added By: Lyssa Maloney Add to Current Problems : NO ProblemS tatus: Resolve Not Available [facility] 19:24:00 Syphilis test finding [id number] Completed 201803/20/2021 Encounte r for screenin g for infectio ns with a predomin antly sexual mode of transmis ivette; Severity : Moderate Progress : Stable Added By: Tamiko Argueta Add to Current Problems : YES ProblemS tatus: Current Ying Avalos MD [address] [facility], [place], [address] , [facility] 2 10:15:43 Finding of menstrua l bleeding Completed 201809/12/2020 Excessiv e and frequent menstrua tion with regular cycle; Progress : Stable Added By: Tangela Riojas Add to Current Problems : NO ProblemS tatus: Resolve Not Available [facility] 2 19:24:00 Finding of pattern of menstrua l cycle [id number] Completed 201809/12/2020 Excessiv e and frequent menstrua tion with irregula r cycle; Progress : Stable Added By: Tangela Riojas Add to Current Problems : NO ProblemS tatus: Resolve Not Available [facility] 2 19:24:00 Family history of breast cancer [id number] Completed 201809/12/2020 Family history of malignan t neoplasm of breast; Progress : Stable Added By: Ernesto Drake Add to Current Problems : NO ProblemS tatus: Resolve Not Available [facility] 2 19:24:01 Uterine leiomyom a [id number] Completed 201803/20/2021 Leiomyom a of uterus, unspecif ied; Severity : Moderate Progress : Stable Added By: Ying Avalos Add to Current Problems : YES ProblemS tatus: Current Bhavana shi, [facility] 5 09:45:46 Acute vaginiti s [id number] Completed 201903/20/2021 Acute vaginiti s; Severity : Moderate Progress : Stable Added By: Tamiko Argueta Add to Current Problems : YES ProblemS tatus: Current Ying Avalos MD [address] [facility], [place], [address] , [facility] 2 10:15:39 Infectio n screenin g Completed 201909/12/2020 Encounte r for screenin g for infectio us and parasiti c diseases , unspecif ied; Progress : Stable Added By: Florence Jensen Add to Current Problems : NO ProblemS tatus: Resolve Not Available [facility] 2 19:24:00 Vaginola bial hernia Completed 201909/12/2020 Other specifie d noninfla mmatory disorder s of vagina; Progress : Stable Added By: Nery Sánchez Add to Current Problems : NO ProblemS tatus: Resolve Not Available [facility] 2 19:24:00 Benign cutaneou s vascular tumor Completed 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/12/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, unspecif ied; Progress : Stable Added By: Ying Avalos Add to Current Problems : NO ProblemS tatus: Resolve Not Available [facility] 2 19:24:01 Acne [id number] Completed 202003/20/2021 Acne, unspecif ied; Severity : Moderate Progress : Stable Added By: Ying Avalos Add to Current Problems : YES ProblemS tatus: Current Ying Avalos MD [address] [place] [address], [address] , [facility] 2 12:13:37 Cyst of ovary [id number] Completed 202003/20/2021 Unspecif ied ovarian cyst, left side; Severity : Moderate Progress : Stable Added By: Ying Avalos Add to Current Problems : YES ProblemS tatus: Current Ying Avalos MD [address] [place] [address], [phone] , [facility] 2 12:13:41 Low back pain [id number] Completed 202003/20/2021 Low back pain; Severity : Moderate Progress : Stable Added By: Alejandrina Torres Add to Current Problems : YES ProblemS tatus: Current Ying Avalos MD [address] [place] [address], [address] , [facility] 2 12:13:44 Epigastr ic pain [id number] Completed 202003/20/2021 Epigastr ic pain; Severity : Moderate Progress : Stable Added By: Alejandrina Torres Add to Current Problems : YES ProblemS tatus: Current Ying Avalos MD [address] [place] [address], [phone] , [facility] 12:13:43 Problem Notes None recorded. Procedures Surgical History Date Name Laterality Status Provider Name and Address Organization Details Recorded Time 025 Most Recent Mammogram completed Almas Jason [facility] 09/03/2024 17:44:31 024 Date of Last Pap Smear completed Bhavana Torres [facility] 09/04/2024 09:41:00 021 embolization of uterine artery completed Ying Avalos MD [address] [place] [address], [phone], [facility] 03/20/2021 12:16:53 Endometrial Ablation completed Nina Cat [facility] 08/01/2023 12:14:17 section completed Savannah Ferrara AIDE [address] [place] [address], [phone], [facility] 02/14/2021 12:20:49 section completed Savannah Ferrara AIDE [address] [place] [address], [phone], [facility] 02/14/2021 12:20:51 ligation of bilateral fallopian tubes completed Savannah Ferrara AIDE [address] [place] [address], [address], [facility] 02/14/2021 12:21:04 Michela fundoplication completed Savannah Ferrara AIDE [address] [place] [address], [phone], [facility] 02/14/2021 12:22:33 Imaging Results None recorded. Procedure Notes None recorded. Medical Equipment None Reported. Allergies No known drug allergies Medications Name Sig Start Date Stop Date Status Note LastModified by Organization Details LastModified Time tetracycl ine 500 mg capsule 12/06 completed Not Available Not Available Not Available losartan 50 mg tablet 04/14 completed Not Available Not Available Not Available quetiapin e 25 mg tablet TAKE 1 TABLET BY MOUTH EVERY DAY AT BEDTIME 08/03 completed Not Available Not Available Not Available fluoxetin e 40 mg capsule TAKE 1 CAPSULE BY MOUTH EVERY DAY WITH FLUOXETI NE 20MG CAPSULE DIRECTED 08/03 completed Not Available Not Available Not Available cyclobenz aprine 10 mg tablet TAKE 1 TABLET(1 0 MG) BY MOUTH TWICE DAILY active Not Available Not Available No t Available amoxicill in 500 mg capsule TAKE 2 CAPSULES BY MOUTH THREE TIMES DAILY FOR 2 WEEKS 07/31 completed Not Available Not Available Not Available Percocet 7.5 mg-325 mg tablet take 1 tablet by oral route every 4 hours as needed for pain 11/08 completed Percocet 7.5-325 mg oral tablet RxNorm: [id number] Allow Substitu tion: False Refill Denied: No Refill DateOccu rred: 09/14/19 Edited by: Alejandrina Schultz ) on 11/09/19 Stopped by: Alejandrina Schultz ) on 11/09/19 Not Available Not Available Not Available prednison e 10 mg tablet 09/04 completed Not Available Not Available Not Available carvedilo l 12.5 mg tablet TAKE 2 TABLETS BY MOUTH EVERY MORNING AND 1 TABLET BY MOUTH IN THE AFTERNOO N 02/07 completed Not Available Not Available Not Available ketoconaz ole 2 % shampoo 09/04 completed Not Available Not Available Not Available clindamyc in HCl 300 mg capsule take 1 capsule (300 mg) by oral route 2 times per day 05/16 completed clindamy ted HCL 300 mg oral capsule RxNorm: [id number] Allow Substitu tion: True Refill Denied: No Edited by: Florence Stallings ) on 05/17/19 Stopped by: Florence Stallings ) on 05/17/19 Not Available Not Available Not Available cetirizin e 10 mg tablet TAKE 1 TABLET BY MOUTH EVERY DAY active Not Available Not Available No t Available lisinopri l 20 mg-hydroc hlorothia zide 12.5 mg tablet TAKE 2 TABLETS BY MOUTH DAILY 09/04 completed Not Available Not Available Not Available tizanidin e 4 mg tablet TAKE 1 TO 2 TABLETS BY MOUTH EVERY NIGHT AT BEDTIME NEEDED active Not Available Not Available No t Available fluconazo le 150 mg tablet take 1 tablet (150 mg) by oral route 11/08 completed fluconaz ole 150 mg oral tablet RxNorm: 623276 Allow Substitu tion: True Refill Denied: No Edited by: Alejandrina Schultz ) on 11/09/19 Stopped by: Alejandrina Schultz ) on 11/09/19 21 Not Available Not Available Not Available sumatript an 100 mg tablet Take 1 tablet(s ) by mouth prn for migraine 11/08 completed SUMAtrip marshall succinat e 100 mg oral tablet RxNorm: [id number] Allow Substitu tion: True Refill Denied: No Refill DateOccu rred: 04/30/19 19 Edited by: Alejandrina Schultz ) on 11/09/19 Stopped by: Alejandrina Schultz ) on 11/09/19 21 Not Available Not Available Not Available hydrocodo ne 5 mg-acetam inophen 325 mg tablet TAKE 1 TABLET BY MOUTH EVERY 6 HOURS NEEDED FOR PAIN 09/04 completed Not Available Not Available Not Available sucralfat e 1 gram tablet TAKE 1 TABLET BY MOUTH TWICE DAILY 02/07 completed Not Available Not Available Not Available metronida zole 0.75 % (37.5 mg/5 gram) vaginal gel INSERT ONE APPLICAT ORFUL VAGINALL Y AT BEDTIME DIRECTED 12/06 completed Not Available Not Available Not Available ondansetr on HCl 4 mg tablet TAKE 1 TABLET BY MOUTH THREE TIMES DAILY 12/06 completed Not Available Not Available Not Available prednison e 20 mg tablet TAKE 3 TABLETS BY MOUTH DAILY FOR 3 DAYS THEN TAKE 2 TABLETS BY MOUTH DAILY FOR 3 DAYS THEN TAKE 1 TABLET BY MOUTH DAILY FOR 3 DAYS 07/31 completed Not Available Not Available Not Available Pyridium 100 mg tablet Take 1 tablet 3 times a day by oral route for 2 days. 09/13 completed Not Available Not Available Not Available metronida zole 250 mg tablet 12/06 completed Not Available Not Available Not Available topiramat e 25 mg tablet TAKE 2 TABLETS BY MOUTH TWICE DAILY 02/07 completed Not Available Not Available Not Available potassium chloride ER 10 mEq tablet,ex tended release TAKE 1 TABLET BY MOUTH DAILY FOR 5 DOSES 12/06 completed Not Available Not Available Not Available metronida zole 500 mg tablet TAKE 1 TABLET BY MOUTH EVERY 8 HOURS FOR 7 DAYS 07/31 completed Not Available Not Available Not Available hydroxyzi ne HCl 50 mg tablet TAKE 1 TABLET BY MOUTH THREE TIMES DAILY NEEDED 08/03 completed Not Available Not Available Not Available sulfameth oxazole 800 mg-trimet hoprim 160 mg tablet 1 po bid x 10 days 11/17 completed sulfamet hoxazole -trimeth oprim 800-160 mg oral tablet RxNorm: [id number] Allow Substitu tion: True Refill Denied: No Edited by: sherin(Sina neal, Ernesto ) on 11/18/19 Stopped by: sherin(Ernesto Gannon ) on 11/18/19 20 Not Available Not Available Not Available omeprazol e 40 mg capsule,d elayed release TAKE 1 CAPSULE BY MOUTH TWICE DAILY FOR 2 WEEKS 02/07 completed Not Available Not Available Not Available tramadol 50 mg tablet TAKE 1 TABLET BY MOUTH 2 TIMES DAILY FOR 5 DAYS active Not Available Not Available No t Available quetiapin e 100 mg tablet TAKE 1 TABLET BY MOUTH DAILY AT BEDTIME active Not Available Not Available No t Available triamcino lone acetonide 0.1 % topical cream APPLY TOPICALL Y TO THE AFFECTED AREA TWICE DAILY active Not Available Not Available No t Available butalbita l-acetami nophen-ca ffeine 50 mg-325 mg-40 mg tablet 08/03 completed Not Available Not Available Not Available carvedilo l 3.125 mg tablet 07/31 completed Not Available Not Available Not Available Macrobid 100 mg capsule Take 1 capsule every 12 hours by oral route for 5 days. 2024 active Not Available Not Available Not Avai lable losartan 100 mg-hydroc hlorothia zide 25 mg tablet TAKE 1 TABLET BY MOUTH DAILY 09/04 completed Not Available Not Available Not Available oxycodone -acetamin ophen 5 mg-325 mg tablet TAKE 1 TABLET BY MOUTH EVERY 8 TO 12 HOURS NEEDED 03/21 completed Not Available Not Available Not Available terbinafi ne HCl 250 mg tablet TAKE 1 TABLET BY MOUTH DAILY. REPEAT IN 1 MONTH 08/03 completed Not Available Not Available Not Available citalopra m 20 mg tablet 08/03 completed citalopr am 20 mg oral tablet RxNorm: [id number] Allow Substitu tion: True Refill Denied: No Refill DateOccu rred: 04/30/19 19 Edited by: Kendell Olivia) on 10/01/19 20 Stopped by: Kendell Olivia) on Not Available Not Available Not Available potassium chloride ER 20 mEq tablet,ex tended release(p art/cryst ) TAKE 1 TABLET BY MOUTH DAILY active Not Available Not Available No t Available famotidin e 20 mg tablet active Not Available Not Available Not Available clindamyc in 1 % topical gel apply a thin layer to the affected area(s) by topical route 2 times per day 03/21 completed clindamy ted phosphat e 1 % Topical Gel RxNorm: [id number] Allow Substitu tion: True Refill Denied: No Edited by: Lidia Rivas ) on 09/22/19 Stopped by: Lidia Rivas ) on Not Available Not Available Not Available DOK 100 mg capsule TAKE 1 CAPSULE BY MOUTH DAILY FOR 5 DAYS 08/03 completed Not Available Not Available Not Available dicyclomi ne 20 mg tablet active Not Available Not Available Not Available baclofen 10 mg tablet TAKE 1 TABLET BY MOUTH TWICE DAILY NEEDED 08/03 completed Not Available Not Available Not Available amlodipin e 10 mg tablet active Not Available Not Available Not Available doxycycli ne monohydra te 100 mg capsule TAKE 1 CAPSULE BY MOUTH EVERY 12 HOURS 03/21 completed Not Available Not Available Not Available hydrocodo ne 7.5 mg-acetam inophen 325 mg tablet TAKE 1 TABLET BY MOUTH EVERY 6 HOURS 03/21 completed Not Available Not Available Not Available pantopraz ole 40 mg tablet,de layed release TAKE 1 TABLET BY MOUTH EVERY DAY active Not Available Not Available No t Available buspirone 30 mg tablet TAKE 1 TABLET BY MOUTH TWICE DAILY AROUND THE CLOCK 08/03 completed Not Available Not Available Not Available triamcino lone acetonide 0.1 % topical ointment APPLY TOPICALL Y TO THE AFFECTED AREA 1 TO 2 TIMES DAILY NEEDED FOR ITCHY SKIN 03/21 completed Not Available Not Available Not Available losartan 25 mg tablet 07/31 completed Not Available Not Available Not Available fluoxetin e 10 mg capsule TAKE ONE CAPSULE BY MOUTH EVERY DAY DIRECTED 02/07 completed Not Available Not Available Not Available diclofena c potassium 50 mg tablet 02/07 completed Not Available Not Available Not Available betametha sone dipropion ate 0.05 % topical cream APPLY TOPICALL Y TO THE AFFECTED AREA TWICE DAILY 09/04 completed Not Available Not Available Not Available omeprazol e 20 mg capsule,d elayed release TAKE ONE CAPSULE BY MOUTH EVERY MORNING 08/03 completed Not Available Not Available Not Available Banophen 25 mg capsule 02/07 completed Not Available Not Available Not Available amoxicill in 250 mg capsule TAKE 3 CAPSULES BY MOUTH THREE TIMES DAILY FOR 2 WEEKS 12/06 completed Not Available Not Available Not Available clindamyc in 2 % vaginal cream INSERT ONE APPLICAT ORFUL VAGINALL Y AT BEDTIME FOR 5 NIGHTS 03/21 completed Not Available Not Available Not Available hydroxyzi ne HCl 25 mg tablet TAKE 1 TABLET BY MOUTH AT BEDTIME 02/07 completed Not Available Not Available Not Available hydrochlo rothiazid e 25 mg tablet active Not Available Not Available Not Available furosemid e 20 mg tablet active Not Available Not Available Not Available ergocalci ferol (vitamin D2) 1,250 mcg (50,000 unit) capsule TAKE 1 CAPSULE BY MOUTH 1 TIME A WEEK 08/03 completed Not Available Not Available Not Available azelastin e 137 mcg (0.1 %) nasal spray USE 2 SPRAYS IN EACH NOSTRIL DAILY DIRECTED 07/31 completed Not Available Not Available Not Available lisinopri l 10 mg-hydroc hlorothia zide 12.5 mg tablet TAKE 2 TABLETS BY MOUTH DAILY 09/04 completed Not Available Not Available Not Available levofloxa ted 500 mg tablet TAKE 1 TABLET BY MOUTH EVERY DAY FOR 2 WEEKS 02/07 completed Not Available Not Available Not Available methylpre dnisolone 4 mg tablets in a dose pack FOLLOW PACKAGE DIRECTIO NS 09/04 completed Not Available Not Available Not Available albuterol sulfate HFA 90 mcg/actua tion aerosol inhaler INHALE 2 PUFFS BY MOUTH EVERY 6 HOURS NEEDED FOR WHEEZING 08/03 completed Not Available Not Available Not Available oxybutyni n chloride 5 mg tablet 12/06 completed Not Available Not Available Not Available clobetaso l 0.05 % scalp solution APPLY TOPICALL Y TO THE SCALP EVERY DAY FOR INFLAMMA TION active Not Available Not Available No t Available ondansetr on 4 mg disintegr ating tablet TAKE 1 TABLET BY MOUTH EVERY 6 HOURS NEEDED FOR NAUSEA/V OMITING. ALLOW TABLET TO DISSOLVE ON THE TONGUE 09/04 completed Not Available Not Available Not Available losartan 100 mg tablet 12/06 completed Not Available Not Available Not Available fluoxetin e 20 mg capsule TAKE 1 CAPSULE BY MOUTH EVERY DAY DIRECTED 08/03 completed Not Available Not Available Not Available fluticaso ne propionat e 50 mcg/actua tion nasal spray,mandy pension SHAKE LIQUID AND USE 2 SPRAYS IN EACH NOSTRIL DAILY 07/31 completed Not Available Not Available Not Available sertralin e 50 mg tablet TAKE 1 TABLET BY MOUTH EVERY DAY 02/07 completed Not Available Not Available Not Available doxycycli ne hyclate 100 mg tablet TAKE 1 TABLET BY MOUTH TWICE DAILY FOR ACNE 02/07 completed Not Available Not Available Not Available atenolol 50 mg tablet active Not Available Not Available Not Available loratadin e 10 mg tablet TAKE 1 TABLET BY MOUTH EVERY DAY 02/07 completed Not Available Not Available Not Available naproxen 500 mg tablet 08/03 completed Not Available Not Available Not Available metoclopr amide 10 mg tablet TAKE 1 TABLET BY MOUTH BEFORE MEALS AND AT BEDTIME 08/03 completed Not Available Not Available Not Available amoxicill in 875 mg-potass ium clavulana te 125 mg tablet TAKE 1 TABLET BY MOUTH EVERY 12 HOURS 09/04 completed Not Available Not Available Not Available amoxicill in 500 mg-potass ium clavulana te 125 mg tablet TAKE 1 TABLET BY MOUTH TWICE DAILY FOR 10 DAYS 12/06 completed Not Available Not Available Not Available tobramyci n 0.3 %-dexamet hasone 0.1 % eye drops,mandy pension SHAKE LIQUID AND INSTILL 1 DROP IN BOTH EYES EVERY 4 HOURS FOR 5 DAYS 02/07 completed Not Available Not Available Not Available Ortho Micronor 0.35 mg tablet 1 tablet daily 04/09 completed Micronor 0.35mg Tablet RxNorm: [id number] Allow Substitu tion: True Refill Denied: No Not Available Not Available Not Available ciclopiro x 0.77 % topical suspensio n APPLY TOPICALL Y TO THE AFFECTED AREA EVERY DAY 07/31 completed Not Available Not Available Not Available cyclobenz aprine 5 mg tablet 09/04 completed Not Available Not Available Not Available erythromy ted with ethanol 2 % topical solution APPLY TOPICALL Y TO FACE DAILY AFTER A SHOWER 03/21 completed Not Available Not Available Not Available duloxetin e 30 mg capsule,d elayed release TAKE 1 CAPSULE BY MOUTH DAILY IN THE MORNING 09/04 completed Not Available Not Available Not Available duloxetin e 60 mg capsule,d elayed release TAKE 1 CAPSULE BY MOUTH DAILY AT BEDTIME active Not Available Not Available No t Available amlodipin e 08/03 completed amLODIPi ne RxNorm: [id number] Refill Denied: No Refill DateOccu rred: 12/31/19 Edited by: Jacquelin Mathews ) on 12/31/19 21 Stopped by: durga (Jacquelin Lara ) on Not Available Not Available Not Available losartan 12/06 completed losartan RxNorm: [id number] Refill Denied: No Refill DateOccu rred: 12/31/19 Edited by: Jacquelin Mathews ) on 12/31/19 21 Stopped by: durga (Jacquelin Lara ) on Not Available Not Available Not Available lisinopri l 12/30 completed lisinopr iL RxNorm: [id number] Allow Substitu tion: False Refill Denied: No Refill DateOccu rred: 05/17/19 Edited by: Jacquelin Mathews ) on 12/31/19 Stopped by: durga (Jacquelin Lara ) on 12/31/19 Not Available Not Available Not Available cyclobenz aprine take 1 tablet (10 mg) by oral route 2 times per day 03/21 completed cycloben zaprine 10 mg oral tablet RxNorm: [id number] Allow Substitu tion: True Refill Denied: No Edited by: Lidia Rivas ) on 11/09/19 Stopped by: Lidia Rivas ) on Not Available Not Available Not Available gabapenti n Take 1 tablet(s ) by mouth tid 11/08 completed Gabapent in 300mg Tablet Allow Substitu tion: True Refill Denied: No Refill DateOccu rred: 04/30/19 Edited by: Alejandrina Schultz ) on 11/09/19 Stopped by: [email or web address] (Alejandrina Torres ) on 11/09/19 Not Available Not Available Not Available quetiapin e 50 mg tablet TAKE 2 TABLETS BY MOUTH EVERY DAY AT BEDTIME 09/04 completed Not Available Not Available Not Available cholecalc iferol (vitamin D3) 1,250 mcg (50,000 unit) capsule 08/03 completed cholecal ciferol (vitamin D3) 1,250 mcg (50,000 unit) oral capsule RxNorm: [id number] Allow Substitu tion: True Refill Denied: No Refill DateOccu rred: 04/30/19 Edited by: Kendell Olivia) on 10/01/19 Stopped by: Kendell Olivia) on Not Available Not Available Not Available FeroSul 325 mg (65 mg iron) tablet TAKE 1 TABLET BY MOUTH EVERY DAY WITH BREAKFAS T 02/07 completed Not Available Not Available Not Available Lysteda Take 3 tablets TID for the first 2 days of period. 07/29 completed Lysteda 650mg Tablet RxNorm: [id number] Allow Substitu tion: True Refill Denied: No Refill DateOccu rred: 04/30/19 Edited by: Florence Stallings ) on 07/30/19 Stopped by: [email or web address](Florence Sweeney ) on 07/30/19 Not Available Not Available Not Available Narcan 4 mg/actuat ion nasal spray CALL 911. SPR CONTENTS OF ONE SPRAYER (0.1ML) INTO ONE NOSTRIL. REPEAT IN 2-3 MIN IF SYMPTOMS OF OPIOID EMERGENC Y PERSIST, ALTERNAT E NOSTRILS 03/21 completed Not Available Not Available Not Available Linzess 72 mcg capsule active Not Available Not Available Not Available clindamyc in 1 % topical gel, once daily 03/21 completed Not Available Not Available Not Available Talicia 10 mg-250 mg-12.5 mg capsule,i mmediate - delay release TAKE 4 CAPSULES BY MOUTH THREE TIMES DAILY FOR 2 WEEKS 12/06 completed Not Available Not Available Not Available Nurte ODT 75 mg disintegr ating tablet DISSOLVE 1 TABLET ON THE TONGUE EVERY DAY NEEDED FOR MIGRAINE active Not Available Not Available No t Available ID NOW COVID-19 Test Kit TEST DIRECTED TODAY 03/21 completed Not Available Not Available Not Available Winlevi 1 % topical cream APPLY EXTERNAL LY TO ENTIRE FACE AT NIGHT AFTER CLEANSIN G AT BEDTIME 09/04 completed Not Available Not Available Not Available Vitals Date Recorded Body height Body mass index (BMI) Body weight Systolic And Diastolic Provider Name and Address Organization Details Last Updated DateTime 08/01/2023 172.72 cm 33.3 kg/m2 16560.73 g 134/88 mm[Hg] Nina Cat [place] [facility] 08/01/2023 12:26:12 Date Recorded Body height Body mass index (BMI) Body weight Body temperature Systolic And Diastolic Provider Name and Address Organization Details Last Updated DateTime 08/03/2021 172.72 cm 34 kg/m2 587028. 54 g 97.6 [degF] 136/84 mm[Hg] Kristina Childers [facility] 10:07:02 Date Recorded Body height Body mass index (BMI) Body weight Systolic And Diastolic Provider Name and Address Organization Details Last Updated DateTime 09/04/2024 172.72 cm 32.7 kg/m2 65979.64 g 128/68 mm[Hg] Bhavana Torres [facility] 09/04/2024 09:51:48 Date Recorded Body height Body mass index (BMI) Body weight Body temperature Systolic And Diastolic Provider Name and Address Organization Details Last Updated DateTime 12/06/2022 172.72 cm 32.6 kg/m2 72743.9 2 g 96.7 [degF] 160/88 mm[Hg] Jacquelin [facility] 3 15:45:29 Date Recorded Body height Body mass index (BMI) Body weight Body temperature Systolic And Diastolic Provider Name and Address Organization Details Last Updated DateTime 02/07/2023 172.72 cm 32.8 kg/m2 53044.9 5 g 97.1 [degF] 118/70 mm[Hg] [facility] 15:11:07 Social History Question Answer Notes LastModified by [employer] Details LastModified Time Tobacco Smoking Status Never Smoker Bhavana Torres [facility] 03/21/2021 09:05:04 Are You Blind Or Do You Have Difficulty Seeing? No Information not available 08/03/2021 Are You Deaf Or Do You Have Serious Difficulty Hearing? No Information not available 08/03/2021 What Type Of Diet Are You Following? REGULAR Information not available 08/03/2021 How Many Children Do You Have? 2 [email or web address] Information not available 03/21/2021 What Is Your Relationship Status? Single [email or web address] Information not available 03/21/2021 Are You Sexually Active? Yes [email or web address] Information not available 03/21/2021 Sex: Unknown Functional Status Question Answer Note LastModified by [employer] Details LastModified Time How many times per week do you consume alcohol? 1-2 times per week [email or web address] Information not available 03/21/2021 Do you use any illicit or recreational drugs? No [email or web address] Information not available 03/21/2021 Do you or have you ever used any other forms of tobacco or nicotine? No [email or web address] Information not available 03/21/2021 What is your level of alcohol consumption? None [email or web address] [id number] Information not available 09/04/2024 Are you currently employed? No [email or web address] Information not available 08/01/2023 What is your exercise level? None Information not available 08/03/2021 Mental Status None recorded. Family History Relationship Description Onset Age of this Age Resolved Age Notes LastModified by Organization Details LastModified Time Maternal Aunt Malignant tumor of breast 55 [email or web address] [id number] Not available 09/04 09:41:00 Unspecified Relation Malignant tumor of breast [email or web address] [id number] Not available 09/04 09:41:00 Medical History Condition Response Other Cancer N High Blood Pressure Y Colon Cancer N Cytomegalovirus N Hyperthyroidism N Breast Cancer N MRSA N Herpes (HSV) N Blood Transfusion N Lung Cancer N Depression Y Hypothyroidism N Incontinence N Panic Attacks N Neurological Disorder N Deep Vein Thrombosis N Anxiety Disorder Y Autoimmune disease Y Arthritis N Tuberculosis/Positive PPD N Shingles N Polycystic Ovarian Syndrome N Cervical Cancer N Hematuria N Chlamydia N Stroke N Varicosities N Seasonal allergies N Crohn's Disease N Alzheimer's/Dementia N COPD/Emphysema N Endometriosis N HPV/Genital Warts N IBS (Irritable Bowel Syndrome) N History of Abnormal Pap N High Cholesterol N Liver Disease N Kidney Infection N Fibromyalgia Y Ulcer N Kidney Disease N HIV N Gallbladder disease N Sickle Cell Disease/Trait N Von Willebrand disease N ADD/ADHD N Eating Disorder N Anemia Y Diabetes Mellitus (non-insulin dependent ) N Multiple Sclerosis N Ovarian Problems N Gonorrhea N Frequent Urinary Tract infections N Osteopenia N Headaches/migraines Y GERD (reflux) Y Ovarian Cancer N Diabetes (insulin dependent) N Seizures/Epilepsy N Fibroids Y Asthma N Heart Attack N Lupus N Endometrial Cancer N Rubella N Blood Clotting Disorder N Bipolar Disorder N Diabetes Mellitus (during ) N Ulcerative Colitis N Hepatitis N Heart Disease N Pulmonary Embolism N RPR N Chicken Pox N Osteoporosis N Gynecological History Statement/Question Response Flow Heavy Date of last HPV 08/01/2023 Frequency of Cycle (Q days) 22 Date of LMP 08/15/2024 HPV Vaccine N Date of Last Pap Smear 07/31/2023 Duration of Flow (days) 5 Most Recent Mammogram 08/27/2024 Current Control Method Tubal Ligat ion Age at Menarche 13 Obstetrics History GPAL:G 2 P 2 0 0 2 Type Value Multiple Births 0 Full Term 2 Induced 0 Spontaneous 0 Premature 0 Living 2 Ectopics 0 Total 2 Past Encounters Encounter ID Performer Location Encounter Start Date Encounter Closed Date Diagnosis/Indication Diagnosis SNOMED-CT Code Diagnosis ICD10 Code Diagnosis Note [id number] Ying Avalos MD [address] [address] 03/21/2021 08:54:01 03/21/2021 17:31:20 Vaginal discharge 295259119 N89.8 N76.0 Venereal d isease screening 966880926 Z11.3 Urgent rafa raisa to urinate 76139242 R39.15 [id number] Ying Avalos MD [address] [address] 04/14/2021 10:06:33 04/14/2021 14:52:05 Pain in pelvis 41981955 R10.2 Discussed options for treatment of symptoms. She understand s that hysterecto my may significan tly improve back pain, but this cannot be guaranteed . Patient is interested in proceeding with hysterecto my. We discussed the planned procedure of Robotic TLH/possBS O/cystosco py. Patient is aware that there are alternativ e routes of hysterecto my and their associated risks and benefits. Uterine leiomyoma 095808 05 D25.9 [id number] Ying Avalos MD [address] [address] 08/03/2021 09:43:28 08/03/2021 10:58:28 Pain in pelvis 30347771 R10.2 Discussed options for treatment of symptoms. Patient is most interested in hysterecto my. We discussed the planned procedure of Robotic TLH/possBS O/cystosco py. Patient is aware that there are alternativ e routes of hysterecto my and their associated risks and benefits. Reviewed risks including but not limited to bleeding, infection, injury and abdominal incision. Patient is aware that this is an outpatient procedure and understand s that certain criteria must be met before discharge. She is also aware of her restrictio ns in the immediate 2 week post op period and that she should follow up at 2 weeks and 6 weeks postoperat rocael. Patient does have a few social concerns including not having a regular bed to sleep it (sleeps on air matress). Plan to keep overnight. Uterine leiomyoma 815533 05 D25.9 [id number] Doretha Gould, [facility] [place] [address] [place] [address] 12/06/2022 15:19:48 12/07/2022 12:59:10 Vaginal irritation 784883237 N89.8 white discharge w/clumps, Pt states she used metrogel yesterday. Denies itching [id number] Tangela Riojas, [facility] [address] [place] [address] 02/07/2023 14:48:18 02/07/2023 17:11:39 Vaginal discharge 547974819 N89.8 N76.0 Wet mount negative. No discharge or odor noted. Vaginal cx obtained.W ill call with results when available [id number] Savannah Ferrara, [facility] [address] [place] [address] 08/01/2023 11:34:08 08/05/2023 14:17:44 Gynecologic examination 63237534 Z01.419 Pt educated on ACOG and ASCCP guidelines for breast, ovarian, and cervical cancer screenings . Exam WNL. Plan for F/U PRN or for next WWE. Screening for malignant neoplasm of cervix 628281979 Z12.4 ASCCP guidelines reviewed with pt. Pap collected and sent. Further POC pending lab result review. Pt states understand ing of POC. Depression screening 171 146611 Z13.31 PHQ9: 21. See Pt Case. Family his tory of breast cancer 275083727 Z80.3 Pt educated on optional MyRisk testing, and encouraged to continue with annual mammograms if doesn't desire MyRisk or Tyrer Cuzick Assessment . Pt states understand ing of POC and will consider. Pt to notify HCP if would like to proceed with hereditary testing. Venereal d isease screening 191831730 Z11.3 Pt educated on importance of condom use for protection against STD's. Samples collected and sent. Further POC pending lab result review. Pt states understand ing of POC. Additional diagnosis detail: Screening for STD (sexually transmitte d disease) Uterine leiomyoma 494206 05 D25.9 Pt encouraged to F/U with MD to discuss tx options. Pt advised to make appt prior to leaving office today. Additional diagnosis detail: Uterine leiomyoma, unspecifie d location [id number] RO GARCIAS DO [facility] [address] [place] [address] 09/04/2024 09:31:43 09/04/2024 11:18:52 Dysuria 25487473 R30.0 Vaginal discharge 583579 006 N89.8 Health Concerns Section Related Observation LastModified by Organization Detai ls LastModified Time None Recorded Concern Status LastModified by Organization Details LastModified Time None Recorded Advance Directives Directive None Recorded Payers Insurance Date Sequence Insurance Name Policy Number Policy Vick Covered Member ID Vick Member ID Guarantor Name 03/29/2023 2 [facility] DOS ON OR AFTER 20 (MEDICAID REPLACEMENT - HMO) Natty Santizo [id number] Natty Santizo 09/01/2024 1 [place] Natty Santizo [id number] Natty Santizo 09/04/2024 2 [place] [facility] Natty Santizo [id number] Natty Santizo Notes Date Note Type Note Provider Name and Address Organization Details Recorded Time 08/03/2021 text/html Pre-Op OBGYN HPIReported bypatient.Risk Factorsno cognitive impairment; no functional impairment; no malnutrition; no frailty; able to climb a flight of stairs (exercise capacity>4 METS); no obstructive sleep apnea; non-smoker; no alcohol misuse; no illicit drug use;obese Anesthesia hx:no hx of anesthesia complications; no allergy to anesthetic agents; no family history of anesthesia complications Past surgical issuesNo previous surgical complications Bleeding disordersNo bleeding / clotting issuesNotes:Scheduled for hysterectomy next week Ying Avalos MD [address] [facility], [place], [address], [facility] [employer] 08/11/2021 09:57:55 12/06/2022 text/html Natty present s for vaginal irritationit is located between her vaginal opening and anal openingThis has been going on about a week and halfHas not taken any medications for at this time Doretha Gould CNM [address] [facility], [place], [address], [facility] [employer] 12/07/2022 21:23:00 02/07/2023 text/html Vaginal/Vulvar ProblemReported bypatient.Location:[facility] Context:not sexually active; current contraception: (tubal) Associated Symptoms:no vaginal itching; no vaginal irritation; no vaginal pain; no vulvar itching/irritation; no vulvar swelling/erythema; no vulvar pain; no vulvar lesions; no pelvic pain; no dyspareunia; no dysuria; no fever; no abdominal pain Wealthie presents with c/o vaginal discharge. She denies odor and vaginal irritation. States she gets BV every month after her cycle. Vaginal cx obtained 12/06/22 in the office was negative. Reports she has been having problems with H. pylori for the past 2 years. Most recent test was negative. States her issues with BV started after the issues with H.pylori started.She denies pelvic pain, urinary frequency, dysuria, and abdominal pain. [facility] [address] [facility], [place], [address], [facility] [employer] 02/12/2023 17:36:10 08/01/2023 text/html Pt presents for annual well woman exam today. Pt states she is doing well. S/P BTL. Not on any hormonal medications. 5-6 days of bleeding, first three days are horrendous amounts of bleeding. Changes super tampon and pad and flooding hourly; stays at home on these days. Activity makes it heavier. Last Pap: 04/29/18 NILM, HPV neg. Pt has been seen by hematology for iron transfx d/t severe, chronic anemia r/t uterine fibroids. Pt is UTD on mammogram, last done 06/2023, Birads 1. Pt is UTD on colonoscopy, last done about 5 years ago and WNL. Pt has no personal history of cancer, but does have a family h/o breast cancer in her maternal aunt. Pt would like STD screening via culture and serum testing. Pt does have PCP who she sees routinely for health promotion and screenings. Pt has no other concerns. [facility] [facility], [place], [address], [facility] 08/02/2023 15:12:28 OBGyn Episode No OBEpisode recorded.
--- OUTSIDE RECORDS SUMMARY | 2024-09-13 08:01 | XMS_ITS | Clinical Summary ---
Author Organization [facility] Address [address] [place] [address] Care Team Providers Care Cigar Head Piercer Name Role Phone George Rodriguez MD Primary Care Provider [phone] Allergies Active Allergy Reactions Criticality Noted Date Comments Doxycycline Rash Medium 05/23/2018 Medications omeprazole (PRILOSEC) 40 MG capsule Take 1 capsule (40 mg total) by mouth 2 (two) times daily as needed. Active NURTEC 75 MG disintegrating tablet DISSOLVE 1 TABLET ON THE TONGUE EVERY 48 HOURS NEEDED FOR MIGRAINE 3 Active hydrOXYzine (ATARAX) 25 MG tablet Take 1 tablet (25 mg total) by mouth 2 (two) times daily as needed. Active DULoxetine (CYMBALTA) 30 MG capsule Take 2 capsules (60 mg total) by mouth daily. 3 Active cetirizine (ZYRTEC) 10 MG tablet Take 1 tablet (10 mg total) by mouth daily. Active adapalene (DIFFERIN) 0.1 % cream Apply topically daily as needed. 3 Active clobetasol (TEMOVATE) 0.05 % external solution Apply 1 Application. topically daily as needed. 3 Active ketoconazole (NIZORAL) 2 % shampoo Apply topically as needed. 3 Active loratadine (CLARITIN) 10 MG tablet Take 1 tablet (10 mg total) by mouth daily as needed. 3 Active carvedilol (COREG) 3.125 MG tabletIndications: Primary hypertension Take 1 tablet (3.125 mg total) by mouth 2 (two) times daily. 60 tablet 3 4 Active dicyclomine (BENTYL) 20 MG tablet Take 1 tablet (20 mg total) by mouth every 6 (six) hours as needed (stomach pain). 20 tablet 4 Active famotidine (PEPCID) 20 MG tablet Take 1 tablet (20 mg total) by mouth 2 (two) times daily as needed. 20 tablet 4 Active ondansetron (ZOFRAN-ODT) 4 MG disintegrating tablet Take 1 tablet (4 mg total) by mouth every 8 (eight) hours as needed. 10 tablet 4 Active Ciclopirox Olamine 0.77 % Suspension daily as needed. 4 Active pantoprazole EC (PROTONIX) 40 MG tablet Take 1 tablet (40 mg total) by mouth daily as needed. 4 Active QUEtiapine XR (SEROQUEL XR) 50 MG 24 hr tablet Take 2 tablets (100 mg total) by mouth daily. Active atenolol (TENORMIN) 50 MG tablet Take 1.5 tablets (75 mg total) by mouth daily. 135 tablet 1 4 Active Active Problems Problem Noted Date Diagnosed Date Anxiety 03/20/2023 Precordial pain 03/20/2023 Helicobacter pylori infection 03/08/2022 Plugged feeling in ear, bilateral 11/10/2021 Cervical radiculopathy 11/07/2021 Chronic pain syndrome 11/07/2021 OAB (overactive bladder) 04/07/2021 COVID-19 03/04/2021 Overview (08/15/2022): Last Assessment & Plan: Use of dayquil/Nyquil for cough Albuterol inhaler as needed every 4-6 hours Zofran for nausea. Drink fluids Take you anxiety medication to help lessen that part of your fears. Last Assessment & Plan: Use of dayquil/Nyquil for cough Albuterol inhaler as needed every 4-6 hours Zofran for nausea. Drink fluids Take you anxiety medication to help lessen that part of your fears. Last Assessment & Plan: Use of dayquil/Nyquil for cough Albuterol inhaler as needed every 4-6 hours Zofran for nausea. Drink fluids Take you anxiety medication to help lessen that part of your fears. Pelvic and perineal pain 12/30/2020 Acute vaginitis 09/21/2020 Syphilis 09/21/2020 B12 deficiency 09/14/2020 Generalized abdominal pain 08/16/2020 Bunion of left foot 06/06/2020 Cardiomegaly 06/06/2020 Overview (08/15/2022): Last Assessment & Plan: Chronic condition. With patient's elevated blood pressure we will treat more aggressively is if blood pressure remains elevated. Last Assessment & Plan: Chronic condition. With patient's elevated blood pressure we will treat more aggressively is if blood pressure remains elevated. Neuropathy 06/06/2020 Pain in unspecified joint 06/06/2020 Hypertension 04/04/2020 Overview (08/15/2022): Last Assessment & Plan: Chronic condition Uncontrolled D\c hyzaar Start coreg 12.5 mb bid Last Assessment & Plan: Chronic condition Stable and improved with lifestyle changes. 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 Overview (08/15/2022): Last Assessment & Plan: Declines systemic therapy Mostly bothered by burning/itching Start clinical strength head and shoulders and there itch serum/oil Consider [place] kenalog Last Assessment & Plan: Declines systemic therapy Mostly bothered by burning/itching Start clinical strength head and shoulders and there itch serum/oil Consider [place] kenalog Seborrheic dermatitis 09/12/2017 Overview (08/15/2022): Last Assessment & Plan: Head and shoulders Iron (Fe) deficiency anemia 01/08/2017 Anemia 10/31/2016 Metrorrhagia 10/31/2016 Renal cyst 10/31/2016 Family History Medical History Relation Comments Cancer Maternal Aunt Hypertension Mother Relation Status Comments Father Alive Maternal Aunt Mother Alive Social History Tobacco Use Types Packs/Day Years Used Date Smoking Tobacco: Never Smokeless Tobacco: Never Alcohol Use Standard Drinks/Week Comments Yes 0 (1 standard drink = 0.6 oz pur e alcohol) socially Comments No Sex and Gender Information Value Date Recorded Sex Assigned at Not on file Legal Sex Female 11:10 PM CDT Gender Identity Female 03/17/2021 8:32 AM CASE SPECIALIST Sexual Orientation Straight 03/17/2021 8: 32 AM CASE SPECIALIST Last Filed Vital Signs Vital Sign Reading Time Taken Comments Blood Pressure 176/102 12/06/2023 1:12 PM CDT Pulse 109 12/06/2023 11:30 AM CDT Temperature 37 C (98.6 F) 12/06/2023 10:40 AM CDT Respiratory Rate 18 12/06/2023 11:30 AM CDT Oxygen Saturation 98% 12/06/2023 11:30 AM CDT Inhaled Oxygen Concentration - - Weight 99.5 kg (219 lb 5.7 oz) 12/06/2023 10:40 AM CDT Height 177.8 cm (5' 10) 12/06/2023 10:40 AM CDT Body Mass Index 31.47 12/06/2023 10:40 AM CDT Plan of Treatment Health Maintenance Due Date Last Done Comments Cervical Cancer Screening Pap Smear (Age 30 to 64) Every 3 Years 1980 Annual Physical 1983 Hepatitis B Vaccines (2 of 3 - 3-dose series) 10/03/1995 09/05/1995 Hepatitis C 1998 Cervical Cancer Screening Pap with HPV Testing (Age 30 to 64) Every 5 Years 2010 Cervical Cancer Screening with HPV 2010 COVID-19 Vaccine ( season) 2023 Mammogram Screening 07/19/2025 07/20/2023, 11/29/2021, 06/30/2020 DTaP, Tdap and Td Vaccines (3 - Td or Tdap) 03/19/2026 03/19/2016, 09/05/1995, 09/29/1985, Additional history exists HPV Vaccines Aged Out No longer eligi ble based on patient's age to complete this topic Meningococcal B Vaccine Aged Out No l onger eligible based on patient's age to complete this topic Meningococcal Vaccine Aged Out No sherwin minoo eligible based on patient's age to complete this topic Pneumococcal Vaccine: Pediatrics (0 to 5 Years) and At-Risk Patients (6 to 49 Years) Aged Out No longer eligible based on patient's age to complete this topic RSV Immunizations Under 20 Months Aged Out No longer eligible based on patient's age to complete this topic Insurance MEDICARE MEDICAID MEDICAL REIMBURSEMENTS OF FAISAL Advance Directives * Full Code (Latest Code Status on File) Date Activated Date Inactivated Comments 03/31/2020 10:09 AM 04/01/2020 2:06 PM Care Teams Cigar Head Piercer Relationship Specialty Start Date End Date George Rodriguez MD [address] [place] [address] [place] [id number] PCP - General FAMILY PRACTICE 06/26/23
--- OUTSIDE RECORDS SUMMARY | 2024-09-13 08:01 | XMS_ITS | Encounter Summary ---
Author Organization [facility] Address [address] [place] [address] Care Team Providers Care Veneer Sawyer Name Role Phone Katya Bautista PA-C Primary Care Provider [phone] George Rodriguez MD Primary Care Provider [phone] Encounter Details Date Type Department Care Team (Late st Contact Info) Description 02/26/2023 [employer] Message [facility] [facility] [address] [place] [address] [email or web address], [facility] Provider Patient amendment request Social History Tobacco Use Types Packs/Day Years Used Date Smoking Tobacco: Never Smokeless Tobacco: Never Alcohol Use Standard Drinks/Week Comments Yes 0 (1 standard drink = 0.6 oz pur e alcohol) socially Comments No Sex and Gender Information Value Date Recorded Sex Assigned at Not on file Legal Sex Female 11:10 PM CDT Gender Identity Female 03/17/2021 8:32 AM CONCRETE WALL GRINDER OPERATOR Sexual Orientation Straight 03/17/2021 8: 32 AM CONCRETE WALL GRINDER OPERATOR documented as of this encounter Functional Status * RETIRED Are you deaf or do you have serious difficulty hearing Answer Date of Assessment Author Status No 03/31/2020 4:23 PM CONCRETE WALL GRINDER OPERATOR Activ e * RETIRED Are you blind or do you have serious difficulty seeing, even when wearing glasses? Answer Date of Assessment Author Status No 03/31/2020 4:23 PM CONCRETE WALL GRINDER OPERATOR Activ e * Do you have serious difficulty walking or climbing stairs? Answer Date of Assessment Author Status No 03/31/2020 4:23 PM CONCRETE WALL GRINDER OPERATOR Ana Nava RN Active * Do you have difficulty dressing or bathing? Answer Date of Assessment Author Status No 03/31/2020 4:23 PM Ana Padilla RN Active * Because of a physical, mental, or emotional condition, do you have difficulty doing errands alone such as visiting a doctor's office or shopping? Answer Date of Assessment Author Status No 03/31/2020 4:23 PM Ana Padilla RN Active documented as of this encounter Mental Status * Because of a physical, mental, or emotional condition, do you have serious difficulty concentrating, remembering, or making decisions? Answer Entry Date Author Status No 03/31/2020 4:23 PM Ana Padilla RN Active documented in this encounter Plan of Treatment Not on file documented as of this encounter Visit Diagnoses Not on filedocumented in this encounter Care Teams Veneer Sawyer Relationship Specialty Start Date End Date Katya Bautista PA-C [address] [place] [address] PCP - General PHYSICIAN PROGRAM CLERK 07/31/22 06/25/23 George Rodriguez MD [address] [facility] [address] [place] [address] PCP - General FAMILY PRACTICE 06/26/23 documented as of this encounter
--- OUTSIDE RECORDS SUMMARY | 2024-09-13 08:01 | XMS_ITS | Encounter Summary ---
Author Organization [facility] Address [address] [place] [address] Care Team Providers Care Tugboat Engineer Name Role Phone Katya Bautista PA-C Primary Care Provider [phone] George Rodriguez MD Primary Care Provider [phone] Encounter Details Date Type Department Care Team (Late st Contact Info) Description 01/10/2023 Therapy Plan [facility] [address] [place] [address] Roni Badillo, DO [address] [facility] [address] [place] [address] Social History Tobacco Use Types Packs/Day Years Used Date Smoking Tobacco: Never Smokeless Tobacco: Never Alcohol Use Standard Drinks/Week Comments Yes 0 (1 standard drink = 0.6 oz pur e alcohol) socially Comments No Sex and Gender Information Value Date Recorded Sex Assigned at Not on file Legal Sex Female 11:10 PM CDT Gender Identity Female 03/17/2021 8:32 AM DITCH RIDER Sexual Orientation Straight 03/17/2021 8: 32 AM DITCH RIDER documented as of this encounter Functional Status * RETIRED Are you deaf or do you have serious difficulty hearing Answer Date of Assessment Author Status No 03/31/2020 4:23 PM DITCH RIDER Activ e * RETIRED Are you blind or do you have serious difficulty seeing, even when wearing glasses? Answer Date of Assessment Author Status No 03/31/2020 4:23 PM DITCH RIDER Activ e * Do you have serious difficulty walking or climbing stairs? Answer Date of Assessment Author Status No 03/31/2020 4:23 PM Ana Padilla RN Active * Do you have difficulty [...] documented as of this encounter Visit Diagnoses Diagnosis Iron (Fe) deficiency anemia- Primary Iron deficiency anemia, unspecified documented in this encounter Care Teams Tugboat Engineer Relationship Specialty Start Date End Date Katya Bautista PA-C [address] [place] [id number] PCP - General PHYSICIAN TIE BINDER 07/31/22 06/25/23 George Rodriguez MD [facility] [address] [place] [address] PCP - General FAMILY PRACTICE 06/26/23 documented as of this encounter
--- OUTSIDE RECORDS SUMMARY | 2024-09-13 08:01 | XMS_ITS | Encounter Summary ---
Author Organization [facility] Address [address] [place] [address] Care Team Providers Care Technical Support Coordinator Name Role Phone Raza Hunter MD Primary Care Provider [phone] Sang Moise MD Primary Care Provider Katya Bautista PA-C Primary Care Provider [phone] George Rodriguez MD Primary Care Provider [phone] Encounter Details Date Type Department Care Team (Late st Contact Info) Description 09/26/2019 Prep for Procedure [facility] [address] [place], [place] [address] Roberto Cedeno MD [address] [id number] Social History Tobacco Use Types Packs/Day Years Used Date Smoking Tobacco: Never Smokeless Tobacco: Never Alcohol Use Standard Drinks/Week Comments Yes 0 (1 standard drink = 0.6 oz pur e alcohol) socially Comments No Sex and Gender Information Value Date Recorded Sex Assigned at Not on file Legal Sex Female 11:10 PM CDT Gender Identity Female 03/17/2021 8:32 AM SOLAR DESIGN ENGINEER Sexual Orientation Straight 03/17/2021 8: 32 AM SOLAR DESIGN ENGINEER documented as of this encounter Plan of Treatment Not on file documented as of this encounter Visit Diagnoses Diagnosis Change in bowel habits- Primary Other symptoms involving digestive system documented in this encounter Additional Health Concerns Infection Onset Date Last Indicated Resolved Time COVID-19 Rule Out 01/09/2020 01/09/202001/0901/10/2020 5:16 PM SOLAR DESIGN ENGINEER COVID-19 Rule Out 03/29/2020 03/29/2020 03/29/2020 10:33 AM SOLAR DESIGN ENGINEER COVID-19 Rule Out 03/29/2020 03/29/2020 03/29/2020 8:27 PM SOLAR DESIGN ENGINEER COVID-19 Rule Out 03/17/2021 03/17/2021 2021 2:50 AM SOLAR DESIGN ENGINEER COVID-19 Rule Out 12/29/2021 12/29/2021 12/29/2021 9:28 PM CDT COVID-19 Rule Out 01/02/2023 01/02/2023 01/03/2023 12:06 AM SOLAR DESIGN ENGINEER documented as of this encounter Care Teams Technical Support Coordinator Relationship Specialty Start Date End Date Raza Hunter MD PCP - General FAMILY PRACTICE 04/09/18 01/11/20 Sang Moise MD PCP - General FAMILY PRACTICE 01/12/20 07/30/22 Katya Bautista PA-C [address] [place] [address] PCP - General PHYSICIAN WOUND NURSE 07/31/22 06/25/23 George Rodriguez MD [address] [place] [address] PCP - General FAMILY PRACTICE 06/26/23 documented as of this encounter
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
--- OUTSIDE RECORDS SUMMARY | 2024-09-13 08:01 | XMS_ITS | Referral Summary ---
Author Organization [facility] [address] [facility] Address [address] [place] [address] Care Team Providers Care Gold Plater Name Role Phone Kendell Eaton MD Unavailable [phone] George Rodriguez MD Primary Care Provider [phone] Bebe Blue MD Unavailable [phone] Encounters Date Type Department Care Team Description 08/27/2024 8:25 AM CDT - 08/27/2024 11:59 PM CDT Hospital Encounter [facility] Bld[address] 1 Breast [facility] [address] [place] [address] Screening mammogram, encounter for Discharge Disposition: Discharge to home or self care 07/30/2024 12:45 PM CDT Office Visit [facility] [place] [address] [place] [address] George Rodriguez MD Hypertension, essential (Primary Dx) from Last 3 Months Allergies No known active allergies Medications cetirizine (ZyrTEC) 10 mg tablet Take 1 tablet (10 mg total) by mouth daily 06/07/19 21 Active ondansetron ODT (ZOFRAN-ODT) 4 mg disintegrating tablet Take 1 tablet (4 mg total) by mouth every 8 (eight) hours as needed for nausea or vomiting 20 tablet 1 03/04/19 22 Active omeprazole (PriLOSEC) 40 mg capsule Take 1 capsule (40 mg total) by mouth 2 (two) times a day 12/20/19 22 Active clobetasoL (TEMOVATE) 0.05 % external solution Apply topically 0 23 Active adapalene (DIFFERIN) 0.1 % cream Apply topically nightly 10/16/19 23 Active ketoconazole (NIZORAL) 2 % shampoo Apply topically as needed 10/16/19 23 Active cyclobenzaprine (FLEXERIL) 10 mg tablet Take 1 tablet (10 mg total) by mouth 2 (two) times a day as needed for muscle spasms 20 tablet 09/12/19 24 Active Additional Information Patient not taking.Reported on 07/30/2024 erenumab-aooe (Aimovig Autoinjector) 70 mg/mL auto-injector subcutaneous injection Inject 1 mL (70 mg total) under the skin every 30 (thirty) days 1 mL 12/26/19 24 Active potassium chloride ER 20 mEq CR tablet Take 1 tablet (20 mEq total) by mouth daily 04/06/[address] (CYMBALTA) 60 mg capsuleIndications :Moderate episode of recurrent major depressive disorder (HCC) Take 1 capsule (60 mg total) by mouth daily 30 capsule 2 05/05/19 25 Active Additional Information Patient not taking.Reported on 07/30/2024 methylPREDNISolone (MEDROL DOSEPACK) 4 mg DosepackIndication s:Dysfunction of both eustachian tubes Take as directed on package. 21 tablet 06/10/19 25 Active Additional Information Patient not taking.Reported on 07/30/2024 hydroCHLOROthiazid e (HYDRODIURIL) 25 mg tabletIndications: Hypertension, essential Take 1 tablet (25 mg total) by mouth daily 30 tablet 2 07/31/19 25 025 Active Active Problems Problem Noted Date Diagnosed Date Menorrhagia with regular cycle 11/06/2023 Medicare annual wellness visit, subsequent 10/23 Assessment & Plan (10/24/2023 8:44 AM CDT): Patient here for annual Medicare wellness visit and for review of complete medical problem list. All the elements of the plan were completed as outlined by CMS. A copy of the prevention plan was given to the patient. I reviewed Medicare Wellness Questionnaire (other physicians involved in care, depression screen, advanced directives), cognitive/memory, and functional assessment. Forms scanned in progress notes. I reviewed and updated the complete problem list, medication list, family history, and immunization records with the patient. I provided preventive counseling and early detection interventions to the patient through health maintenance update and summary of today's office visit. Personalized Prevention Plan Services (PPPS): Opioid Use: No Immunization: Xebeldnll23: Not Applicable. Itlnajh03: Not Applicable. PCV20: Highly Recommended Influenza: Highly Recommended HepatitisB: Not Applicable. Tetanus: Highly Recommended Shingles: Highly Recommended RSV: Highly Recommended Cancer Screening: Mammogram: Not Applicable. PAP Smear: Not Applicable. Prostate Cancer Screening: Not Applicable. Colorectal Cancer Screening: Not Applicable. Lung Cancer Screening: Not Applicable. Others: Diet: Lifestyle education regarding diet discussed. Exercise: Encouraged regular daily exercise. Medication Use: Aspirin use discussion. DEXA Scan: Not Applicable. Glaucoma Screening: Recommended Annually. Audio Screen ordered? No Diabetes: Not Applicable. Annual Labs: Ordered For Today. Abdominal Aortic Aneurysm Screening: Not Applicable. HIV Screening: Not Applicable. Smoking cessation Counselling: Not Applicable. Subsequent Annual Wellness Visit: Annually Moderate episode of recurrent major depressive d isorder 10/24/2023 Irritant contact dermatitis due to chemical 03/29 Precordial pain 03/20/2023 Anxiety 03/19/2023 Class 1 obesity due to exces s calories with serious comorbidity and body mass index (BMI) of 31.0 to 31.9 in adult 12/27/2022 Assessment & Plan (10/24/2023 8:49 AM CDT): Recommended aggressive Lifestyle modification and weight loss for improving overall weight related health conditions. Follow up in 1 or 3 months for continuing Lifestyle Medicine education and management visit. Recommend Lifestyle/Nutrition/Weight Loss Seminar on every other Tuesdays @ 5pm. Assessment & Plan (09/19/2023 9:20 AM CDT): Recommended aggressive Lifestyle modification and weight loss for improving overall weight related health conditions. Follow up in 1 or 3 months for continuing Lifestyle Medicine education and management visit. Recommend Lifestyle/Nutrition/Weight Loss Seminar on every other Tuesdays @ 5pm. H. pylori infection 03/08/2022 Helicobacter pylori infection 03/08/2022 Plugged feeling in ear, bilateral 11/10/2021 Cervical radiculopathy 11/07/2021 Cervical spinal stenosis 11/07/2021 Chronic pain syndrome 11/07/2021 Vitamin D deficiency 06/05/2021 OAB (overactive bladder) 04/07/2021 COVID-19 03/04/2021 Assessment & Plan (03/04/2021 10:41 AM [employer]): Use of dayquil/Nyquil for cough Albuterol inhaler as needed every 4-6 hours Zofran for nausea. Drink fluids Take you anxiety medication to help lessen that part of your fears. Pelvic and perineal pain 12/30/2020 Epigastric pain 11/08/2020 Overview (09/19/2023): Epigastric pain; Severity: Moderate Progress: Stable Added By: Alejandrina Torres Add to Current Problems: YES ProblemStatus: Current Low back pain 11/08/2020 Overview (12/09/2023): Low back pain; Severity: Moderate Progress: Stable Added By: Alejandrina Torres Add to Current Problems: YES ProblemStatus: Current Syphilis 09/21/2020 B12 deficiency 09/14/2020 Cyst of ovary 09/14/2020 Overview (09/19/2023): Unspecified ovarian cyst, left side; Severity: Moderate Progress: Stable Added By: Ying Avalos Add to Current Problems: YES ProblemStatus: Current Acne 09/13/2020 Overview (12/09/2023): Acne, unspecified; Severity: Moderate Progress: Stable Added By: Ying Avalos Add to Current Problems: YES ProblemStatus: Current Uterine leiomyoma 09/12/2020 Generalized abdominal pain 08/16/2020 Cervical strain 06/13/2020 Pain in unspecified joint 06/06/2020 Neuropathy 06/06/2020 Cardiomegaly 06/06/2020 Assessment & Plan (11/01/2020 9:56 AM CDT): Chronic condition. With patient's elevated blood pressure we will treat more aggressively is if blood pressure remains elevated. Bunion of left foot 06/06/2020 Cardiomegaly 06/06/2020 Overview (09/19/2023): Last Assessment & Plan: Chronic condition. With patient's elevated blood pressure we will treat more aggressively is if blood pressure remains elevated. Last Assessment & Plan: Chronic condition. With patient's elevated blood pressure we will treat more aggressively is if blood pressure remains elevated. Essential hypertension 04/04/2020 Assessment & Plan (08/03/2021 12:16 PM CDT): Chronic condition Uncontrolled D\c hyzaar Start coreg 12.5 mb bid Assessment & Plan (11/29/2020 12:51 PM CDT): Chronic condition Stable and improved with lifestyle changes. Continue with losartan and amlodipine Assessment & Plan (11/01/2020 9:55 AM CDT): Chronic condition not well controlled Patient is adamant his today's elevation is due to situational concerns at home. She will come back in and a week to 2 weeks if she has any concerns any symptoms for nurse to recheck her blood pressure otherwise will follow-up in 4 weeks. Hypertension 04/04/2020 Overview (12/09/2023): Last Assessment & Plan: Chronic condition Uncontrolled D\c hyzaar Start coreg 12.5 mb bid Last Assessment & Plan: Chronic condition Stable and improved with lifestyle changes. 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 Degenerative disc disease, cervical 02/24/2020 Herniated cervical intervertebral disc 0 Migraine without status migrainosus, not intract able 11/20/2019 Neck pain 11/20/2019 Lumbar back pain 11/20/2019 Fibromyalgia 11/20/2019 Assessment & Plan (05/04/2024 9:26 AM CDT): Chronic. Uncontrolled. Renewal of Cannabis. Certification #: [id number] Migraine headache 11/20/2019 Acute vaginitis 07/30/2019 Overview (09/19/2023): Acute vaginitis; Severity: Moderate Progress: Stable Added By: Tamiko Argueta Add to Current Problems: YES ProblemStatus: Current Uterine leiomyoma 09/04/2018 Overview (12/09/2023): Leiomyoma of uterus, unspecified; Severity: Moderate Progress: Stable Added By: Ying Avalos Add to Current Problems: YES ProblemStatus: Current Atrophic vaginitis 08/12/2018 Overview (09/19/2023): Excessive and frequent menstruation with regular cycle; Progress: Stable Added By: Tangela Riojas Add to Current Problems: NO ProblemStatus: Resolve Menstrual cycle disorder 08/12/2018 Overview (09/19/2023): Excessive and frequent menstruation with irregular cycle; Progress: Stable Added By: Tangela Riojas Add to Current Problems: NO ProblemStatus: Resolve Excessive and frequent menstruation with irregular cycle; Progress: Stable Added By: Tangela Riojas Add to Current Problems: NO ProblemStatus: Resolve Syphilis contact 04/28/2018 Overview (09/19/2023): Encounter for screening for infections with a predominantly sexual mode of transmission; Severity: Moderate Progress: Stable Added By: Tamiko Argueta Add to Current Problems: YES ProblemStatus: Current Vitamin D deficiency 04/15/2018 MIKE positive 02/27/2018 Arthralgia of both hands 02/27/2018 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 Seborrheic dermatitis 09/12/2017 Iron deficiency anemia due to chronic blood loss 07/02/2017 Body mass index (BMI) 29.0-29.9, adult 8 Anemia 10/31/2016 Metrorrhagia 10/31/2016 Renal cyst 10/31/2016 Immunizations Immunization Administration Dates Next Due DTP 09/29/1985, 3,1980,07/06,1980 Hep B, Adolescent or Pediatric 09/05/1995 Influenza, Quadrivalent, Spl it, Intramuscular 11/29/2015 Influenza, Unspecified 12/09/2023(Deferr ed: Patient decision),12/27/2022(Deferred: Patient decision),01/08/2022(Deferred: Patient Refused),11/01/2021(Deferred: Patient decision) MMR 11/04/1989,05/03/1982 Mumps 11/01/1989 OPV 09/29/1985, 3,1980,07/06,1980 Polio, Unspecified 10/28/1982 Td, adsorbed 09/05/1995 Tdap 03/19/2016 Social History Tobacco Use Types Packs/Day Years Used Date Smoking Tobacco: Never Cigarettes Smokeless Tobacco: Never Tobacco Cessation:Counseling Given: Not Answered Alcohol Use Standard Drinks/Week Comments Yes 0 (1 standard drink = 0.6 oz pur e alcohol) socialy [facility] Utilities Answer Date Recorded In the past 12 months has HOSTING, gas, oil, or water company threatened to shut off services in your home? No 06/13/2023 Social Connection and Isolation Panel [NHANES] A nswer Date Recorded In a typical week, how many times do you talk on the phone with family, friends, or neighbors? Never 06/13/2023 How often do you get together with friends or re latives? Never 06/13/2023 How often do you attend latter day or taoist serv ices? Never 06/13/2023 Do you belong to any clubs o r organizations such as latter day groups, unions, fraternal or athletic groups, or school groups? No 06/13/2023 How often do you attend meet ings of the clubs or organizations you belong to? Never 06/13/2023 Are you , , di vorced, , never , or living with a partner? Never 06/13/2023 AUDIT-C Answer Date Recorded Q1: How often do you have a drink containing alcohol? Never 07/30/2024 Q2: How many drinks containi ng alcohol do you have on a typical day when you are drinking? Patient does not drink Q3: How often do you have si x or more drinks on one occasion? Never 07/30/2024 Overall Financial Resource Strain (CARDIA) Answe r Date Recorded How hard is it for you to pa y for the very basics like food, housing, medical care, and heating? Very hard 06/13/2023 PHQ-2 Answer Date Recorded PHQ-2 Total Score (If total score is 3 or more points, staff should administer the PHQ-9) 4 10/24/2023 [facility] - Occupational Stress Questionnaire Answer Date Recorded Do you feel stress - tense, restless, nervous, or anxious, or unable to sleep at night because your mind is troubled all the time - these days? Very much 06/13/2023 Hunger Vital Sign Answer Date Recorded Within the past 12 months, y ou worried that your food would run out before you got the money to buy more. Never true 06/13/19 24 Within the past 12 months, t he food you bought just didn't last and you didn't have money to get more. Never true 06/13/2023 PRAPARE - Transportation Answer Date Re corded In the past 12 months, has l ack of transportation kept you from medical appointments or from getting medications? No 05/26 In the past 12 months, has l ack of transportation kept you from meetings, work, or from getting things needed for daily living? No 06/13/2023 Housing Stability Vital Sign Answer Wagner e Recorded In the last 12 months, was t here a time when you were not able to pay the mortgage or rent on time? No 06/13/2023 In the last 12 months, how many places have you lived? 4 06/13/2023 In the last 12 months, was t here a time when you did not have a steady place to sleep or slept in a half-way (including now)? Yes 06/13/2023 PHQ-9 Answer Date Recorded PHQ-9 Total Score 8 10/24/2023 Personal Safety Answer Date Recorded Have you ever been in or are you currently in a harmful physical or emotional relationship or is someone making you feel afraid or unsafe? Denies 09/12/2023 Comments No Sex and Gender Information Value Date Recorded Sex Assigned at Not on file Legal Sex Female 2:44 AM [employer] Gender Identity Female 11/08/2020 7:14 AM CDT Sexual Orientation Straight 11/08/2020 7: 14 AM CDT Last Filed Vital Signs Vital Sign Reading Time Taken Comments Blood Pressure 170/100 07/30/2024 12:39 PM CDT Pulse 100 07/30/2024 12:39 PM CDT Temperature 36.8 C (98.2 F) 07/30/2024 12:39 PM CDT Respiratory Rate 18 07/30/2024 12:3 9 PM CDT Oxygen Saturation 98% 07/30/2024 12: 39 PM CDT Inhaled Oxygen Concentration - - Weight 99.2 kg (218 lb 11.1 oz) 08/27/2024 8:41 AM CDT Height 177.8 cm (5' 10) 08/27/2024 8:41 AM CDT Body Mass Index 31.38 08/27/2024 8:41 AM CDT Plan of Treatment Not on file Goals Goal Patient Goal Type Associated Problems Recent Progress Patient-Stated? Author ACO SW Goal - Patient is knowledgeable of available resources to improve socio-economic needs ACO Care Management Improving( 2:19 PM CDT) No Gabino Glass LCSW Note: Problem: Socio-economic Issues Interventions: - Assess need for community resources. - Provide education on prioritizing expenses with income. - Educate patient on available resources. - Identify/assist in obtaining available community resources. Procedures Procedure Name Priority Date/Time Associated Diagnosis Comments SCREENING MAMMOGRAM BILATERAL W DECLAN Schedule Routine, Read Routine (OP Routine) 08/27/2024 8:58 AM CDT Screening mammogram, encounter for HEPATITIS C ANTIBODY Routine 06/17/2023 7:31 AM CDT from Last 3 Months or Most Recently Relevant to Health Maintenance Results * Screening Mammogram Bilateral W Declan (08/27/2024 8:58 AM CDT) Anatomical Region Laterality Modality Breast Bilateral Mammography Impressions 08/27/2024 9:03 AM CDT Bilateral No evidence of malignancy in either breast. OVERALL BI-RADS FINAL ASSESSMENT: 1 - Negative RECOMMENDATION: Recommend bilateral annual screening mammography. Narrative 08/27/2024 9:03 AM CDT EXAMINATION: Screening Mammogram Bilateral W Declan: 08/27/2024 COMPARISON: Relevent prior studies available at the time of interpretation were reviewed, including the most recent mammogram on: 07/20/2023. TECHNIQUE: Mammography was performed with 2D and digital breast tomosynthesis (DBT) images. CAD was utilized. BREAST PARENCHYMAL COMPOSITION: The breasts are heterogeneously dense, which may obscure small masses. FINDINGS: Bilateral There is no suspicious mass, calcification, or architectural distortion in either breast. us Self Screening Mammogram IMG MAMMO PROCEDURES Fi nal Result * Hepatitis C antibody (06/17/2023 7:31 AM CDT) Hep C Ab NON-REACTI VE NON-REACT YINA [facility] Comment: HCV antibody was non-reactive. There is no laboratory evidence of HCV infection. In most cases, no further action is required. However, if recent HCV exposure is suspected, a test for HCV RNA (test code 73988) is suggested. For additional information please refer to http://[email or web address]/faq/CFX69a8 (This link is being provided for informational/ educational purposes only.) 06/17/2023 7:31 AM CDT 06/17/2023 7:34 AM CDT George Rodriguez MD LAB MICROBIOLOGY - GENERAL ORDER GENE Final Result [facility] [id number] [id number] from Last 3 Months or Most Recently Relevant to Health Maintenance Insurance MEDICARE IDPA MEDICARE IDPA MEDICARE [facility] Address: [address] [address] [place] [address] Care Teams Gold Plater Relationship Specialty Start Date End Date George Rodriguez MD [address] [place] [address] PCP - General Family Medicine 08/14/22 Kendell Eaton MD [address] [place] [address] Referring Physician Obstetrics and Gynecology 11/29/21 Bebe Blue MD [address] [place] [address] Consulting Physician Gastroenterology 11/23/22
--- OUTSIDE RECORDS SUMMARY | 2024-09-13 08:01 | XMS_ITS | Clinical Summary ---
Author Organization [facility] Address [address] [place] [address] Phone Care Team Providers Care Card Cutter Helper Name Role Phone Ying Avalos MD Unavailable Roni Badillo DO Unavailable [phone] Sang Moise MD Primary Care Provider [phone] Allergies No known active allergies Medications cetirizine (ZyrTEC) 10 MG Tablet TAKE 1 TABLET BY MOUTH ONCE DAILY 1 Active Clascoterone (Winlevi) 1 % Cream Apply 1 Drop. 2 Active triamcinolone (KENALOG) 0.1 % Cream APPLY TOPICALLY TO THE AFFECTED AREA TWICE DAILY 2 Active ondansetron (ZOFRAN-ODT) 4 MG TABLET DISPERSIBLE Take 1 Tablet by mouth every 6 hours as needed for Nausea - 1st line. 10 Tablet 4 Active Additional Information Patient not taking.Reported on 04/01/2024 ketoconazole (NIZORAL) 2 % Shampoo Apply to wet hair, leave on for 3 minutes, then rinse; three times weekly. 30 days supply 3 Active clobetasol (TEMOVATE) 0.05 % Solution APPLY TOPICALLY TO THE SCALP EVERY DAY FOR INFLAMMATION Active betamethasone dipropionate 0.05 % Cream APPLY TOPICALLY TO THE AFFECTED AREA TWICE DAILY 4 Active adapalene (DIFFERIN) 0.1 % Gel Pea sized amount to entire face at night.. 30 days supply. 4 Active atenolol (TENORMIN) 100 MG Tablet Take 100 mg by mouth daily. 4 Active Erenumab-aooe (Aimovig) 70 MG/ML Solution Auto-injector 70 mg by Subcutaneous route. 4 Active tiZANidine (ZANAFLEX) 4 MG Tablet TAKE 1 TO 2 TABLETS BY MOUTH EVERY NIGHT AT BEDTIME NEEDED 4 Active amLODIPine (NORVASC) 10 MG Tablet Take 10 mg by mouth daily. 4 025 Active Desiccated Beef Liver Powder by Does not apply route. Active SUMAtriptan (IMITREX) 25 MG Tablet 1 tablet as needed Orally Once a day Active lisinopril (PRINIVIL, ZESTRIL) 20 MG Tablet Take 1 Tablet by mouth daily. Active Active Problems Problem Noted Date Diagnosed Date Vitamin D deficiency 06/05/2021 OAB (overactive bladder) 04/07/2021 COVID-19 03/04/2021 Overview (09/14/2021): Last Assessment & Plan: Use of dayquil/Nyquil for cough Albuterol inhaler as needed every 4-6 hours Zofran for nausea. Drink fluids Take you anxiety medication to help lessen that part of your fears. B12 deficiency 09/14/2020 Generalized abdominal pain 08/16/2020 Bunion of left foot 06/06/2020 Cardiomegaly 06/06/2020 Overview (09/14/2021): Last Assessment & Plan: Chronic condition. With patient's elevated blood pressure we will treat more aggressively is if blood pressure remains elevated. Neuropathy 06/06/2020 Essential hypertension 04/04/2020 Overview (09/14/2021): Last Assessment & Plan: Chronic condition Stable and improved with lifestyle changes. Continue with losartan and amlodipine Uterine leiomyoma 03/31/2020 Overview (09/14/2021): Last Assessment & Plan: Chronic and potentially contributing to patient lumbar and pelvic pain She is scheduled to circular gang saw operator. 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 Overview (09/14/2021): Last Assessment & Plan: Declines systemic therapy Mostly bothered by burning/itching Start clinical strength head and shoulders and there itch serum/oil Consider [place] kenalog Iron deficiency anemia due to chronic blood loss 07/02/2017 Renal cyst 10/31/2016 Encounters Date Type Department Care Team Description 08/04/2024 8:30 AM CDT Clinical Support [facility] [address] [phone] Iron deficiency anemia due to chronic blood loss (Primary Dx) 08/04/2024 Travel 07/29/2024 11:45 AM CDT Office Visit [facility] [address] [phone] Virgen Hutchins APRN, INSURANCE ADJUSTER Iron deficiency anemia, unspecified iron deficiency anemia type (Primary Dx); B12 deficiency; Hypertension, unspecified type 07/29/2024 11:35 AM CDT Lab [facility] [address] [phone] Alesia Senior MD Lab, [facility] Iron deficiency anemia due to chronic blood loss; B12 deficiency 07/29/2024 Results Follow-Up [facility] [address] [phone] Virgen Hutchins APRN, INSURANCE ADJUSTER IRON W/ IRON BINDING CAPACITY OH, CMP (COMPREHENSIVE METABOLIC PANEL) 07/29/2024 Travel from Last 3 Months Immunizations Immunization Administration Dates Next Due DTP Vaccine 09/29/1985, 3,1980,1980,1980 Hepatitis B Vaccine, Pediatric/adolescent 09/05/1995 Influenza, Injectable, Quadrivalent 11/29/2015 MMR Vaccine 11/04/1989,05/03/1982 Mumps Vaccine 11/01/1989 OPV 09/29/1985, 3,1980,1980,1980 Polio Vaccine,unspecified Formulation 10/28/1982 TD VACCINE 09/05/1995 TDAP Vaccine 03/19/2016 Social History Tobacco Use Types Packs/Day Years Used Date Smoking Tobacco: Never Smokeless Tobacco: Never Tobacco Cessation:Counseling Given: Not Answered Alcohol Use Standard Drinks/Week Comments Yes 0 (1 standard drink = 0.6 oz pur e alcohol) socially PHQ-2 Answer Date Recorded Total Score - Questions 1-9 0 08/26 Comments No Sex and Gender Information Value Date Recorded Sex Assigned at Not on file Legal Sex Female 8:28 AM CDT Gender Identity Not on file Sexual Orientation Not on file Last Filed Vital Signs Vital Sign Reading Time Taken Comments Blood Pressure 148/88 07/29/2024 11:29 AM CDT Pulse 87 07/29/2024 11:29 AM CDT Temperature 36.6 C (97.8 F) 07/29/2024 11:29 AM CDT Respiratory Rate 18 07/29/2024 11:29 AM CDT Oxygen Saturation 98% 07/29/2024 11:29 AM CDT Inhaled Oxygen Concentration - - Weight 98.6 kg (217 lb 6.4 oz) 07/29/2024 11:29 AM CDT Height 172.7 cm (5' 8) 07/29/2024 11:29 AM CDT Body Mass Index 33.06 07/29/2024 11:29 AM CDT Plan of Treatment Upcoming Encounters Date Type Department Care Team (Late st Contact Info) Description 11/24/2024 8:00 AM CDT Lab [facility] [address] [phone] [facility], [facility] 11/24/2024 8:15 AM CDT Office Visit [facility] [address] [phone] Roni Badillo, DO [address] [place] [phone] Health Maintenance Due Date Last Done Comments Hepatitis C Virus (HCV) Screening 1980 Human Papillomavirus (HPV) Immunization (1 - 3-dose series) 1995 Hepatitis B Immunization (2 of 3 - 3-dose series) 10/03/1995 09/05/1995 Pap Smear 2001 Cervical Cancer Screening (CCS) 2010 HPV/Cotest 2010 SARS-COV-2 Immunization (1 - season) 2023 Mammogram 07/19/2024 07/20/2023, 1006/2021, 06/30/2020 Influenza Immunization (#1) 2024 11/29/2015 DTaP/Tdap/Td Immunization (7 - Td or Tdap) 03/19/2026 03/19/2016, 09/05/1995, 09/29/1985, Additional history exists Respiratory Syncytial Virus (RSV) Immunization (Adult) (1 - 1-dose 75+ series) 2055 Discussion re Starting/Frequency of Mammograms Completed 07/20/2023, 11/29/2021, 06/30/2020 Meningococcal Immunization (ACWY) Aged Out No longer eligible based on patient's age to complete this topic Pneumococcal Immunization Combined Aged Out No longer eligible based on patient's age to complete this topic Rotavirus Immunization Aged Out No lo nger eligible based on patient's age to complete this topic Procedures Procedure Name Priority Date/Time Associated Diagnosis Comments CBC WITH AUTO DIFF OH Routine 07/29/2024 11:18 AM CDT CMP (COMPREHENSIVE METABOLIC PANEL) Routine 07/29/2024 11:18 AM CDT Iron deficiency anemia due to chronic blood loss B12 deficiency VITAMIN B12 Routine 07/29/2024 11:18 AM CDT Iron deficiency anemia due to chronic blood loss B12 deficiency IRON W/ IRON BINDING CAPACITY OH Routine 07/29/2024 11:18 AM CDT Iron deficiency anemia due to chronic blood loss B12 deficiency FERRITIN Routine 07/29/2024 11:18 AM CDT Iron deficiency anemia due to chronic blood loss B12 deficiency FOLIC ACID (FOLATE) Routine 07/29/2024 1 1:18 AM CDT Iron deficiency anemia due to chronic blood loss B12 deficiency from Last 3 Months Results * (ABNORMAL) IRON W/ IRON BINDING CAPACITY OH (07/29/2024 11:18 AM CDT) IRON 47(L) 50 - 212 ug/dL CANC[facility]OTOGRAP[facility] UIBC 418(H) 155 - 355 ug/dL CANCER MICRO PHOTOGRAP[facility] TIBC 465 261 - 478 ug/dl CANC[facility] MICRO PHOTOGRAP[facility] % Saturation 10(L) 20 - 50 % [facility] MICRO PHOTOGRAP[facility] 07/29/2024 11:1 8 AM CDT Narrative [facility]GR[facility] - 07/29/2024 12:22 PM CDT Release to patient->Immediate Virgen Hutchins THINNER SPRAYER, INSURANCE ADJUSTER LAB SEND OUTS Final Result CANCER MICRO PHOTOGRAP[facility] [address] [place] [place] [address], * (ABNORMAL) CBC WITH AUTO DIFF [place] (07/29/2024 11:18 AM CDT) WBC 8.2 4.0 - 10.0 10*3/uL CANCER MICRO PHOTOGRAP[facility] HGB 11.1(L) 11.2 - 15.7 g/dL CANCER MICRO PHOTOGRAP[facility] HCT 36.0 34.1 - 44.9 % CANCER MICRO PHOTOGRAP[facility] PLT 384(H) 163 - 369 10*3/uL CANC[facility] MICRO PHOTOGRAP[facility] MPV 9.7 9.4 - 12.4 fL CAN[facility] MICRO PHOTOGRAP[facility] RBC 4.74 3.93 - 5.22 10*6/uL CANCER MICRO PHOTOGRAP[facility] MCV 76(L) 79 - 95 fL CANCER MICRO PHOTOGRAP[facility] MCH 23.4(L) 25.6 - 32.2 pg CANCER MICRO PHOTOGRAP[facility] MCHC 30.8(L) 32.2 - 36.5 g/dL CANCER MICRO PHOTOGRAP[facility] RDW 20.8(H) 11.6 - 14.4 % CANCER MICRO PHOTOGRAP[facility] Neutrophils % 65.8 36.0 - 66.0 % CANCER MICRO PHOTOGRAP[facility] Lymphocytes % 25.6 19.0 - 40.0 % CANCER MICRO PHOTOGRAP[facility] Monocytes % 4.6 4.1 - 12.1 % CANC[facility] MICRO PHOTOGRAP[facility] Eosinophils % 2.8 0.0 - 3.5 % CANCER MICRO PHOTOGRAP[facility] Basophils % 0.5 0.0 - 1.0 % CANCER MICRO PHOTOGRAP[facility] Absolute Neutrophils 5.4 1.4 - 6.6 10*3/uL CANCER MICRO PHOTOGRAP[facility] Absolute Lymphocytes 2.1 0.8 - 4.0 10*3/uL CANCER MICRO PHOTOGRAP[facility] Absolute Monocytes 0.4 0.2 - 1.2 10*3/uL CANCER MICRO PHOTOGRAP[facility] Absolute Eosinophils 0.2 0.0 - 0.4 10*3/uL CANCER MICRO PHOTOGRAP[facility] Absolute Basophils 0.0 0.0 - 0.1 10*3/uL CANCER MICRO PHOTOGRAP[facility] WBC Estimate Normal [facility]CER MICRO PHOTOGRAP[facility] Platelet Estimate High CA NCER MICRO PHOTOGRAPHER [facility] RBC Morphology Abnormal CANCE R MICRO PHOTOGRAPHER [facility] Microcytosis 1+ CANCER MICRO PHOTOGRAPHER [facility] Polychromasia 1+ CANCER MICRO PHOTOGRAPHER [facility] Anisocytosis 2+ CANCER MICRO PHOTOGRAPHER [facility] Poikilocytosis 1+ CANCE R MICRO PHOTOGRAPHER [facility] 07/29/2024 11:1 8 AM CDT Virgen Hutchins THINNER SPRAYER, INSURANCE ADJUSTER LAB SEND OUTS Final Result [facility] MICRO PHOTOGRAP[facility] [place] [address], * VITAMIN B12 (07/29/2024 11:18 AM CDT) Vitamin B12 394 180 - 914 pg/mL CANC[facility] MICRO PHOTOGRAP[facility] Blood 07/29/2024 11:1 8 AM CDT [facility] CANCER MICRO PHOTOGRAPHER [facility] - 07/30/2024 2:31 PM CDT Release to patient->Immediate Virgen Hutchins APRN, INSURANCE ADJUSTER CHEMISTRY ORDERABLES Final Result Performing Organization Address [facility] Co de Phone Number CANCER MICRO PHOTOGRAPHER [facility] [address] [place] [address], [place] [phone] * FOLIC ACID (FOLATE) (07/29/2024 11:18 AM CDT) Folate >20.00 >=5.90 ng/mL [facility] MICRO PHOTOGRAP[facility] Blood 07/29/2024 11:1 8 AM CDT [facility] - 07/30/2024 2:31 PM CDT Release to patient->Immediate IS THE PATIENT REQUIRED TO BE FASTING FOR 12 HOURS?->No Virgen Hutchins THINNER SPRAYER, INSURANCE ADJUSTER CHEMISTRY ORDERABLES Final Result Performing Organization Address [facility] Co de Phone Number CANCER MICRO PHOTOGRAPHER [facility] [place] [address] [place] [address], [place] [phone] * FERRITIN (07/29/2024 11:18 AM CDT) Ferritin 21 11 - 307 ng/mL [facility] MICRO PHOTOGRAP[facility] Blood 07/29/2024 11:1 8 AM CDT [facility] - 07/30/2024 2:31 PM CDT Release to patient->Immediate Virgen Hutchins APRN, INSURANCE ADJUSTER CHEMISTRY ORDERABLES Final Result Performing Organization Address [facility] Co de Phone Number CANCER MICRO PHOTOGRAPHER [facility] [address] [place] [address], [place] [phone] * (ABNORMAL) CMP (COMPREHENSIVE METABOLIC PANEL) (07/29/2024 11:18 AM CDT) Glucose 97 70 - 105 mg/dL [facility] Blood Urea Nitrogen 13 7 - 25 mg/dL [facility] Creatinine 0.8 0.6 - 1.2 mg/dL [facility] Sodium 139 136 - 145 mEq/L [facility] Potassium 3.4(L) 3.5 - 5.1 mEq/L [facility] Chloride 103 98 - 107 mEq/L [facility] Bicarbonate 26 21 - 31 mEq/L [facility] Total Bilirubin 0.4 0.3 - 1.0 mg/dL [facility] Alk. Phosphatase 51 34 - 104 U/L [facility] Aspartate Aminotransferase 13 13 - 39 U/L [facility] Alanine Aminotransferase 11 7 - 52 U/L [facility] Total Protein 6.8 6.4 - 8.9 g/dL [facility] Albumin 4.7 3.5 - 5.7 g/dL [facility] Calcium 9.5 8.6 - 10.3 mg/dL [facility] Anion Gap 13.4 7.0 - 15.0 mEq/L [facility] Globulin 2.1 2.0 - 3.5 g/dL [facility] EGFR 93 >60 ml/min/1. 73m2 [facility] Comment: This eGFR is calculated using 2020 CKD-EPI Creatinine equation without race modifier based on the NKF-ASN task force recommendations Equation: tXOB=986*min(SCr/k,1)a*max(SCr/k,1)-1.200*0.9938Age*1.012 (if female), where SCr is serum creatinine, k is 0.7 for females and 0.9 for males, and a is -0.241 for females and -0.302 for males Blood 07/29/2024 11:1 8 AM CDT Narrative [facility] - 07/29/2024 12:22 PM CDT Release to patient->Immediate IS THE PATIENT REQUIRED TO BE FASTING FOR 8 HOURS?->No us Virgen Hutchins THINNER SPRAYER, INSURANCE ADJUSTER CHEMISTRY ORDERABLES Final Result CANCER MICRO PHOTOGRAPHER [facility] [place] [address], from Last 3 Months Insurance MEDICARE MEDICAID [place] MED[place]ARE Care Teams Card Cutter Helper Relationship Specialty Start Date End Date Sang Moise MD [address] [facility] [address] [place] [address] PCP - General Family Medicine 04/13/23 Ying Avalos MD Obstetrics & Gynecology 12/17/18 Roni Badillo DO [address] [place] [phone] Consulting Physician Hematology and Oncology 08/04/20 Kendell Eaton Gynecology 06/18/18
--- OUTSIDE RECORDS SUMMARY | 2024-09-13 08:01 | XMS_ITS | Encounter Summary ---
Author Organization [facility] Address [address] [place] [address] Care Team Providers Care Chief Librarian Music Department Name Role Phone Avani Cheung MD Primary Care Provider [phone] Raza Hunter MD Primary Care Provider [phone] Sang Moise MD Primary Care Provider [phone] Katya Bautista PA-C Primary Care Provider [phone] George Rodriguez MD Primary Care Provider [phone] Encounter Details Date Type Department Care Team (Late st Contact Info) Description 02/11/2017 RX Orders Only [facility] [address] [place], [place] [id number] Sang Taylor, PharmD, [place], [place] [id number] Social History Tobacco Use Types Packs/Day Years Used Date Smoking Tobacco: Never Smokeless Tobacco: Never Alcohol Use Standard Drinks/Week Comments Yes 0 (1 standard drink = 0.6 oz pur e alcohol) socially Comments Unknown Sex and Gender Information Value Date Recorded Sex Assigned at Not on file Legal Sex Female 11:10 PM CDT Gender Identity Female 03/17/2021 8:32 AM CREATIVE GURU Sexual Orientation Straight 03/17/2021 8: 32 AM CREATIVE GURU documented as of this encounter Plan of Treatment Not on file documented as of this encounter Visit Diagnoses Not on filedocumented in this encounter Additional Health Concerns Infection Onset Date Last Indicated Resolved Time COVID-19 Rule Out 01/09/2020 01/09/2020 01/10/2020 5:16 PM CREATIVE GURU COVID-19 Rule Out 03/29/2020 03/29/2020 03/29/2020 10:33 AM CREATIVE GURU COVID-19 Rule Out 03/29/2020 03/29/2020 03/29/2020 8:27 PM CREATIVE GURU COVID-19 Rule Out 03/17/2021 03/17/2021 2021 2:50 AM CREATIVE GURU COVID-19 Rule Out 12/29/2021 12/29/2021 12/29/2021 9:28 PM CDT COVID-19 Rule Out 01/02/2023 01/02/2023 01/03/2023 12:06 AM CREATIVE GURU documented as of this encounter Care Teams Chief Librarian Music Department Relationship Specialty Start Date End Date Avani Cheung MD [address] [place] [address] [place] [id number] PCP - General FAMILY PRACTICE 01/08/17 04/08/18 Raza Hunter MD [address] [place] [address] [place] [id number] PCP - General FAMILY PRACTICE 04/09/18 01/11/20 Sang Moise MD [address] [facility] [address] [place], [place] PCP - General FAMILY PRACTICE 01/12/20 07/30/22 Katya Bautista PA-C [address] [place] [address] PCP - General PHYSICIAN CREDIT CONSULTANT 07/31/22 06/25/23 George Rodriguez MD [address] [facility] [address] [place] [address] PCP - General FAMILY PRACTICE 06/26/23 documented as of this encounter
--- OUTSIDE RECORDS SUMMARY | 2024-09-13 08:01 | XMS_ITS | Encounter Summary ---
Author Organization [facility] Address [address] [place] [address] Care Team Providers Care Acting Teacher Name Role Phone Katya Bautista PA-C Primary Care Provider [phone] George Rodriguez MD Primary Care Provider [phone] Encounter Details Date Type Department Care Team (Late st Contact Info) Description 09/07/2022 [facility] [address] Marvel Garrison [place] Social History Tobacco Use Types Packs/Day Years Used Date Smoking Tobacco: Never Smokeless Tobacco: Never Alcohol Use Standard Drinks/Week Comments Yes 0 (1 standard drink = 0.6 oz pur e alcohol) socially Comments No Sex and Gender Information Value Date Recorded Sex Assigned at Not on file Legal Sex Female 11:10 PM CDT Gender Identity Female 03/17/2021 8:32 AM SUPERVISOR COOK HOUSE Sexual Orientation Straight 03/17/2021 8 :32 AM SUPERVISOR COOK HOUSE documented as of this encounter Functional Status * RETIRED Are you deaf or do you have serious difficulty hearing Answer Date of Assessment Author Status No 03/31/2020 4:23 PM SUPERVISOR COOK HOUSE Activ e * RETIRED Are you blind or do you have serious difficulty seeing, even when wearing glasses? Answer Date of Assessment Author Status No 03/31/2020 4:23 PM SUPERVISOR COOK HOUSE Activ e * Do you have serious difficulty walking or climbing stairs? Answer Date of Assessment Author Status No 03/31/2020 4:23 PM SUPERVISOR COOK HOUSE Ana Nava RN Active * Do you [...] on file documented as of this encounter Procedures Procedure Name Priority Date/Time Associated Diagnosis Comments COMPREHENSIVE METABOLIC PANEL Routine 09/07/2022 COMPREHENSIVE METABOLIC PANEL Routine 08/22/2022 LIPID PANEL Routine 08/22/2022 documented in this encounter Results * COMPREHENSIVE METABOLIC PANEL (09/07/2022) SODIUM S/P/B 142 POTASSIUM S/P/B 3.3 CO2 25 CHLORIDE S/P/B 107 GLUCOSE 126 mg/dL CALCIUM S/P/B 9.2 BUN 8 CREATININE S/P/B 0.9 0.5 - 1.0 EGFR NON-AFR. AMER. >60 <=90 ALKALINE PHOSPHATASE S/P/B 54 ALT 13 AST 4 BILIRUBIN TOTAL S/P/B 0.4 ALBUMIN S/P/B 4.5 3.5 - 5.0 TOTAL PROTEIN S/P/B 6.7 GLOBULIN 2.2 09/07/2022 us Default History Genericprovider LABORATORY Final Result * COMPREHENSIVE METABOLIC PANEL (08/22/2022) SODIUM S/P/B 142 GLUCOSE 91 mg/dL BUN 8 CREATININE S/P/B 0.78 0.5 - 1.0 CALCIUM S/P/B 9.1 POTASSIUM S/P/B 3.5 CHLORIDE S/P/B 106 GFR ESTIMATE 97 Narrative Resulting Agency Comment us Default History Genericprovider LABORATORY Final Result * LIPID PANEL (08/22/2022) CHOLESTEROL 159 TRIGLYCERIDES 181 HDL 40 LDL (CALCULATED) 91 NON HDL CHOLESTEROL 119 Narrative Resulting Agency Comment us Default History Genericprovider LABORATORY Edited Result - Final documented in this encounter Visit Diagnoses Not on filedocumented in this encounter Additional Health Concerns Infection Onset Date Last Indicated Resolved Time COVID-19 Rule Out 01/02/2023 01/02/2023 01/03/2023 12:06 AM SUPERVISOR COOK HOUSE documented as of this encounter Care Teams Acting Teacher Relationship Specialty Start Date End Date Katya Bautista PA-C [address] [place] [address] PCP - General PHYSICIAN RECREATION THERAPY DIRECTOR 07/31/22 06/25/23 George Rodriguez MD [address] [facility] [address] [place] [address] PCP - General FAMILY PRACTICE 06/26/23 documented as of this encounter
--- OUTSIDE RECORDS SUMMARY | 2024-09-13 08:01 | XMS_ITS | Encounter Summary ---
Author Organization [facility] Address [address] [place] [address] Care Team Providers Care Coil Winder Strap Name Role Phone Katya Bautista PA-C Primary Care Provider [phone] George Rodriguez MD Primary Care Provider [phone] Encounter Details Date Type Department Care Team (Late st Contact Info) Description 02/26/2023 [employer] Message [employer] [facility] ActiveReplay [facility] [address] [place] [address] [employer], [facility] Provider Patient amendment request Social History Tobacco Use Types Packs/Day Years Used Date Smoking Tobacco: Never Smokeless Tobacco: Never Alcohol Use Standard Drinks/Week Comments Yes 0 (1 standard drink = 0.6 oz pur e alcohol) socially Comments No Sex and Gender Information Value Date Recorded Sex Assigned at Not on file Legal Sex Female 11:10 PM CDT Gender Identity Female 03/17/2021 8:32 AM TYPESETTING SUPERVISOR Sexual Orientation Straight 03/17/2021 8: 32 AM TYPESETTING SUPERVISOR documented as of this encounter Functional Status * RETIRED Are you deaf or do you have serious difficulty hearing Answer Date of Assessment Author Status No 03/31/2020 4:23 PM TYPESETTING SUPERVISOR Activ e * RETIRED Are you blind or do you have serious difficulty seeing, even when wearing glasses? Answer Date of Assessment Author Status No 03/31/2020 4:23 PM TYPESETTING SUPERVISOR Activ e * Do you have serious difficulty walking or climbing stairs? Answer Date of Assessment Author Status No 03/31/2020 4:23 PM TYPESETTING SUPERVISOR Ana Nava RN Active * Do you [...] on filedocumented in this encounter Care Teams Coil Winder Strap Relationship Specialty Start Date End Date Katya Bautista PA-C [address] [place] [address] PCP - General PHYSICIAN TOOL DESIGN ENGINEER 07/31/22 06/25/23 Georeg Rodriguez MD [address] [facility] [address] [place] [address] PCP - General FAMILY PRACTICE 06/26/23 documented as of this encounter
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
--- OUTSIDE RECORDS SUMMARY | 2024-09-13 08:01 | XMS_ITS | Continuity of Care Document ---
Author Organization [facility] Address [address] [place] [address] [place] [address] Phone Care Team Providers Care Vp Transportation Name Role Phone Raza Hunter MD Unavailable Unavailable Allergies, Adverse Reactions, Alerts Substance Reaction Status Criticality No Known Allergies Active No Inform ation Medications Medication Instructions Dosage Effective Dates (start - stop) Status Comments [place] 10 mg-325 mg tablet take 1 by Oral route 2 times every day as needed 1 - Active PRN for pain, avoid driving or operate machines Prozac 40 mg capsule take 1 capsule by oral route every day in the morning - Active cyclobenzaprine 10 mg tablet take 1 tablet by oral route 2 times every day as needed 10 MG - Active PRN for pain , avoid driving or operate machines Reglan 10 mg tablet take 1 tablet by oral route 3 times every day 10 MG - Active omeprazole 20 mg capsule,delayed release take 1 capsule by oral route every day before a meal 20 MG - Active amitriptyline 50 mg tablet take 1 tablet by oral route every day at bedtime 50 MG - Active ropinirole 0.5 mg tablet take 1 tablet by oral route every bedtime 0.5 MG - Active buspirone 10 mg tablet take 1 tablet by oral route 2 times every day 10 MG - Active avoid driving or operate machines Procedures Procedure Date OFFICE/OUTPATIENT VISIT, EST OFFICE/OUTPATIENT VISIT, EST OFFICE/OUTPATIENT VISIT, EST OFFICE/OUTPATIENT VISIT, EST OFFICE/OUTPATIENT VISIT, EST OFFICE/OUTPATIENT VISIT, EST OFFICE/OUTPATIENT VISIT, EST OFFICE/OUTPATIENT VISIT, EST OFFICE/OUTPATIENT VISIT, EST OFFICE/OUTPATIENT VISIT, EST OFFICE/OUTPATIENT VISIT, EST OFFICE/OUTPATIENT VISIT, EST OFFICE/OUTPATIENT VISIT, EST PREV VISIT, EST, AGE 18-39 OFFICE/OUTPATIENT VISIT, EST OFFICE/OUTPATIENT VISIT, EST OFFICE/OUTPATIENT VISIT, EST OFFICE/OUTPATIENT VISIT, EST OFFICE/OUTPATIENT VISIT, EST OFFICE/OUTPATIENT VISIT, EST OFFICE/OUTPATIENT VISIT, EST OFFICE/OUTPATIENT VISIT, EST OFFICE/OUTPATIENT VISIT, EST OFFICE/OUTPATIENT VISIT, EST OFFICE/OUTPATIENT VISIT, EST OFFICE/OUTPATIENT VISIT, EST OFFICE/OUTPATIENT VISIT, EST OFFICE/OUTPATIENT VISIT, EST OFFICE/OUTPATIENT VISIT, EST PREV VISIT, NEW, AGE 18-39 OFFICE/OUTPATIENT VISIT, NEW Advance Directives Directive Yes / No Effective Date File Name No Information Encounters Encounter Description Practice Location Reason(s) For Visit Diagnoses Date Provider Providers Copied on Encounter [facility], [address] [place], [address], tel:[phone] [facility] No Information 0 Hunter Raza. [address], [place], [place], [address] , [place]. tel:[phone] OFFICE/OUTPA TIENT VISIT, [facility], [address], [place], [place], [address], tel:[phone] [facility] fibromyalg ia1 (chief complaint) anemia1 (chief complaint) AnemiaFibromyalgiaM igrainePatient's other noncompliance with medication regimen 0 Dale Raza. [address], [place], [place], [address] , [place]. tel:[phone] OFFICE/OUTPA TIENT VISIT, [facility], [address], [place], [place], [address], [place] tel:[phone] [facility] fibromyalg ia1 (chief complaint) lung nodule1 (chief complaint) HIVE1 (chief complaint) BV (chief complaint) Solitary lung noduleFibromyalgiaA cute vaginitisUrticaria 0 Dale Raza. [address], [place], [place], [address] , [place]. tel:[phone] OFFICE/OUTPA TIENT VISIT, [facility], [address], [place], [place], [address], [place] tel:[phone] [facility] fibromyalg ia1 (chief complaint) anemia1 (chief complaint) hemorrhoid 1 (chief complaint) lung nodule1 (chief complaint) HemorrhoidSolitary lung noduleFibromyalgiaA nemia 0 Dale Person. [address], [place], [place], [address] , [place]. [phone] OFFICE/OUTPA TIENT VISIT, [facility], [address], [place], [place], [address], [place] tel:[phone] [facility] fibromyalg ia1 (chief complaint) anxiety1 (chief complaint) GERD1 (chief complaint) anemia1 (chief complaint) lung nodule1 (chief complaint) FibromyalgiaGeneral ized Anxiety DisorderGERD w/o esophagitisAnemiaSo litary lung nodule 0 Dale Person. [address], [place], [place], [address] , [place]. tel:[phone] OFFICE/OUTPA TIENT VISIT, [facility], [address], [place], [place], [address], [place] tel:[phone] [facility] pain (chief complaint) vaginal discharge1 (chief complaint) anxiety1 (chief complaint) FibromyalgiaGeneral ized Anxiety DisorderLeukorrhea 0 Dale Person. [address], [place], [place], [address] , [place]. [phone] OFFICE/OUTPA TIENT VISIT, [facility], [address], [place], [place], [address], [place] tel:[phone] [facility] flu (chief complaint) lung nodule1 (chief complaint) fibromyalg ia1 (chief complaint) anxiety1 (chief complaint) Viral infectionSolitary lung noduleFibromyalgiaG eneralized Anxiety Disorder 0 Dale Person. [address], [place], [place], [address] , [place]. [phone] OFFICE/OUTPA TIENT VISIT, [facility], [address] [place] [address], [place] tel:[phone] [facility] RLS (chief complaint) pain (chief complaint) anemia1 (chief complaint) FibromyalgiaRestles s legs syndromeMigraineAne art 0 Dale Person. [address], [place], [place], [address] , [place]. [phone] OFFICE/OUTPA TIENT VISIT, [facility], [address] [place] [address], [place] tel:[phone] [facility] anxiety1 (chief complaint) fibromyalg ia1 (chief complaint) swelling1 (chief complaint) Generalized Anxiety DisorderFibromyalgi aAnemiaRestless legs syndromeNeuropathy 0 Dale Person. [address], [place], [place], [address] , [place]. tel:[phone] Referring Provider: [address], [place], [place], [address]. tel:[phone] OFFICE/OUTPA TIENT VISIT, [facility], [address] [place] [address], [place] tel:[phone] [facility] anxiety1 (chief complaint) skin (chief complaint) fibromyalg ia (chief complaint) Contact dermatitisFibromyal giaGeneralized Anxiety Disorder 9 Dale Person. [address], [place], [place], [address] , [place]. tel:[phone] Referring Provider: Trace Florez [address], [place], [place], [address]. tel:[phone] OFFICE/OUTPA TIENT VISIT, [facility], [address], [place], [place], [address], [place] tel:[phone] [facility] anxiety1 (chief complaint) fibromyalg ia (chief complaint) FibromyalgiaGeneral ized Anxiety Disorder 9 Dale Person. [address], [place], [place], [address] , [place]. tel:[phone] OFFICE/OUTPA TIENT VISIT, [facility], [address], [place], [place], [address], [place] tel:[phone] [facility] anxiety1 (chief complaint) fibromyalg ia1 (chief complaint) neuropathy 1 (chief complaint) hEADCHE (chief complaint) FibromyalgiaGeneral ized Anxiety DisorderNeuropathyM igraine 9 Dale Person. [address], [place], [place], [address] , [place]. tel:[phone] Referring Provider: Trace Florez [address], [place], [place], [address]. tel:[phone] OFFICE/OUTPA TIENT VISIT, [facility], [address], [place], [place], [address], [place] tel:[phone] [facility] anxiety1 (chief complaint) fibromyalg ia1 (chief complaint) insomnia1 (chief complaint) Generalized Anxiety DisorderFibromyalgi aInsomnia 9 Dale Person. [address], [place], [place], [address] , [place]. [phone] Referring Provider: Trace Fl[address], [place], [place], [address]. tel:[phone] OFFICE/OUTPA TIENT VISIT, [facility], [address], [place], [place], [address], [place] tel:[phone] [facility] chronic pain1 (chief complaint) pelvic congestion 1 (chief complaint) HTN (chief complaint) FibromyalgiaPelvic painEssential (primary) hypertensionOvarian cyst 9 Dale Person. [address], [place], [place], [address] , [place]. [phone] Referring Provider: Trace Florez [address], [place], [place], [address]. tel:[phone] PREV VISIT, EST, AGE 18-39 [facility], [address], [place], [place], [address], [place] tel:[phone] [facility] PHysical (chief complaint) Encntr for general adult medical exam w/o abnormal findings 9 Dale Person. [address], [place], [place], [address] , [place]. [phone] Referring Provider: [address], [place], [place], [address]. tel:[phone] OFFICE/OUTPA TIENT VISIT, [facility], [address], [place], [place], [address], [place] tel:[phone] [facility] anxiety1 (chief complaint) fibromyalg ia1 (chief complaint) burn1 (chief complaint) pelvic pain1 (chief complaint) FibromyalgiaPelvic painGeneralized Anxiety DisorderRash 9 Dale Person. [address], [place], [place], [address] , [place]. tel:[phone] Referring Provider: Trace Florez [address], [place], [place], [address]. tel:[phone] OFFICE/OUTPA TIENT VISIT, [facility], [address], [place], [place], [address], [place] tel:[phone] [facility] pelvic pain1 (chief complaint) fibromyalg ia1 (chief complaint) anxiety1 (chief complaint) Pelvic painDysmenorrheaFib romyalgiaGeneralize d Anxiety Disorder 9 Dale Yost [address], [place], [place], [address] , [place]. tel:[phone] OFFICE/OUTPA TIENT VISIT, [facility], [address], [place], [place], [address], [place] tel:[phone] [facility] fibromyalg ia1 (chief complaint) mold1 (chief complaint) anxiety1 (chief complaint) HTN (chief complaint) FibromyalgiaContact with and (suspected) exposure to mold (toxic)Essential (primary) hypertensionGeneral ized Anxiety Disorder 9 Dale Yost [address], [place], [place], [address] , [place]. tel:[phone] Referring Provider: [address], [place], [place], [address]. tel:[phone] OFFICE/OUTPA TIENT VISIT, [facility], [address], [place], [place], [address], [place] tel:[phone] [facility] fibromyalg ia1 (chief complaint) cardiomega ly1 (chief complaint) HTN (chief complaint) mold exposure1 (chief complaint) CardiomegalyFibromy algiaEssential (primary) hypertensionContact with and (suspected) exposure to mold (toxic) 0 9 Dale Yost [address], [place], [place], [address] , [place]. tel:[phone] Referring Provider: [address], [place], [place], [address]. tel:[phone] OFFICE/OUTPA TIENT VISIT, [facility], [address], [place], [place], [address], [place] tel:[phone] [facility] liver (chief complaint) cardiomega ly1 (chief complaint) fibromyalg ia1 (chief complaint) CardiomegalyFatty liverFibromyalgia 9 Dale Person. [address], [place], [place], [address] , [place]. tel:[phone] Referring Provider: Raza Hunter, [address], [place], [place], [address]. tel:[phone] OFFICE/OUTPA TIENT VISIT, [facility], [address], [place], [place], [address], [place] tel:[phone] [facility] Fibromyalg ia1 (chief complaint) liver lesion1 (chief complaint) MIKE (chief complaint) bunion1 (chief complaint) FibromyalgiaRaised antibody titerBunion of left footLiver disease 9 Dale Person. [address], [place], [place], [address] , [place]. tel:[phone] Referring Provider: Trace Florez [address], [place], [place], [address]. tel:[phone] OFFICE/OUTPA TIENT VISIT, [facility], [address], [place], [place], [address], [place] tel:[phone] [facility] fibromyalg ia1 (chief complaint) HTN (chief complaint) Essential (primary) hypertensionFibromy algia 9 Dale Person. [address], [place], [place], [address] , [place]. tel:[phone] Referring Provider: Raza Hunter, [address], [place], [place], [address]. tel:[phone] OFFICE/OUTPA TIENT VISIT, [facility], [address], [place], [place], [address], [place] tel:[phone] [facility] ANA1 (chief complaint) fibromyalg ia1 (chief complaint) liver lesion1 (chief complaint) FibromyalgiaRaised antibody titerLiver disease 9 Dale Yost [address], [place], [place], [address] , [place]. tel:[phone] Referring Provider: [address], [place], [place], [address]. tel:[phone] OFFICE/OUTPA TIENT VISIT, [facility], [address], [place], [place], [address], [place] tel:[phone] [facility] itching1 (chief complaint) fibromyalg ia1 (chief complaint) abdominal pain1 (chief complaint) FibromyalgiaNeuropa thyRaised antibody titerFatty liverRash 9 Dale Yost [address], [place], [place], [address] , [place]. [phone] Referring Provider: [address], [place], [place], [address]. tel:[phone] OFFICE/OUTPA TIENT VISIT, [facility], [address] [place], [address], [place] tel:[phone] [facility] chronic pain1 (chief complaint) anxiety1 (chief complaint) neuropathy 1 (chief complaint) FibromyalgiaNeuropa thyGeneralized Anxiety DisorderRaised antibody titerAnemia 8 Dale Yost [address], [place], [place], [address] , [place]. [phone] OFFICE/OUTPA TIENT VISIT, [facility], [address] [place], [address], [place] tel:[phone] [facility] Chronic pain1 (chief complaint) anxiety1 (chief complaint) anemia1 (chief complaint) AnemiaNeuropathyGen eralized Anxiety DisorderFibromyalgi a 0 8 Dale Yost [address], [place], [place], [address] , [place]. tel:[phone] Referring Provider: Trace Florez [address], [place], [place], [address]. tel:[phone] OFFICE/OUTPA TIENT VISIT, [facility], [address], [place], [place], [address], [place] tel:[phone] [facility] anemia1 (chief complaint) chronic pain1 (chief complaint) AnemiaFibromyalgiaN europathy 8 Dale Person. [address], [place], [place], [address] , [place]. tel:[phone] Referring Provider: Trace Florez [address], [place], [place], [address]. tel:[phone] OFFICE/OUTPA TIENT VISIT, [facility], [address], [place], [place], [address], [place] tel:[phone] [facility] joint pain1 (chief complaint) NeuropathyPain in unspecified jointLupus anticoagulant syndrome 8 Dale Person. [address], [place], [place], [address] , [place]. tel:[phone] Referring Provider: Trace Florez [address], [place], [place], [address]. tel:[phone] OFFICE/OUTPA TIENT VISIT, [facility], [address], [place], [place], [address], [place] tel:[phone] [facility] anemia1 (chief complaint) low D (chief complaint) ANA1 (chief complaint) anxieyt1 (chief complaint) AnemiaVitamin D deficiency, unspecifiedLupus anticoagulant syndromeGeneralized Anxiety Disorder 8 Dale Person. [address], [place], [place], [address] , [place]. [phone] Referring Provider: Trace Florez [address], [place], [place], [address]. tel:[phone] OFFICE/OUTPA TIENT VISIT, [facility], [address], [place], [place], [address], tel:[phone] [facility] anemia1 (chief complaint) heavy period1 (chief complaint) chronic pain1 (chief complaint) anxiety1 (chief complaint) Body mass index (BMI) 29.0-29.9, adultChronic pain syndromeGeneralized Anxiety DisorderAnemiaIrreg ular period Apr-3 0-201 8 Dale Person. [address] [facility] [place], [address] , [place]. tel:[phone] Referring Provider: Trace Florez [address] [place], [address]. tel:[phone] PREV VISIT, NEW, AGE 18-39 [facility], [address] [place], [address], [place] tel:[phone] [facility] Physical (chief complaint) Encounter for general adult medical exam w abnormal findingsAnemiaMigra ineChronic pain syndromeBody mass index (BMI) 29.0-29.9, adultGeneralized Anxiety Disorder Apr-2 8-201 8 Dale Person. [address] [facility] [place], [address] , [place]. tel:[phone] Referring Provider: Trace Florez [address] [facility] [address], [place], [place], [address]. tel:[phone] Family History Family Member Type Diagnosis Age At Onset Brother Problem (finding) Depression Mother Problem (finding) Hypertension Father Problem (finding) Alive and well Problem (finding) Family history of Depre ssion Brother Problem (finding) Alive and well Payers Payer name Insurance type Covered republican ID Authoriza tion(s) No Information Social History Type Description Quantity Date Captured Comments Sex Female Smoking Status No Information Chief Complaint And Reason For Visit No Information Plan Of Treatment Date Type Action Status Goal Special diet education compl eted Goal Special diet education compl eted Goal Special diet education compl eted Goal Special diet education compl eted Goal Special diet education compl eted Goal Special diet education compl eted Goal Special diet education compl eted Goal Special diet education compl eted Goal Special diet education compl eted Goal Special diet education compl eted Goal Special diet education compl eted Goal Special diet education compl eted Goal Special diet education compl eted Goal Special diet education compl eted Goal Special diet education compl eted Goal Special diet education compl eted Goal Special diet education compl eted Goal Special diet education compl eted Goal Prescribed dietary intake co mpleted Goal Special diet education compl eted Referral Ordered: Allergy and Immunology (related to Urticaria) ordered Referral Ordered: Referrals: Allergy and Immunology. Evaluate and treat ordered Referral Ordered: CT THORAX W/O DYE ordered Referral Ordered: Pain Medicine (related to Fibromyalgia) ordered Referral Ordered: Referrals: Pain Medicine. Evaluate and treat ordered Referral Ordered: Chiquita Valentin -Allopathic & Osteopathic Physicians : Obstetrics & Gynecology (related to Dysmenorrhea) ordered Referral Referred To: Chiquita Valentin [address] [facility]
[address], [phone] Ordered: Referrals: Allopathic & Osteopathic Physicians : Obstetrics & Gynecology. Chiquita Valentin. Evaluate and treat ordered Referral Ordered: Physical Therapy (related to Fibromyalgia) ordered Referral Ordered: DOPPLER ECHO EXAM, HEART ordered Referral Ordered: MICHELLE ASTORGA -Podiatric Medicine & Surgery Service Providers : Computational Mathematician (related to Bunion of left foot) ordered Referral Referred To: MICHELLE ASTORGA [facility] [place], [place], [phone] Ordered: Referrals: Podiatric Medicine & Surgery Service Providers : Computational Mathematician. MICHELLE ASTORGA. Evaluate and treat ordered Referral Ordered: Physical Therapy (related to Fibromyalgia) ordered Referral Ordered: MRI ABDOMEN W/O & W/DYE ordered Referral Ordered: Physical Therapy (related to Chronic pain syndrome) ordered Referral Referred To: Physical Therapy Ordered: Referrals: Physical Therapy. Evaluate and treat ordered Referral Ordered: Tessie Edmondson -Allopathic & Osteopathic Physicians : Internal Medicine : Rheumatology (related to Lupus anticoagulant syndrome) ordered Referral Referred To: Tessie Edmondson [address]
[facility] [address] [place], [place] [phone] Ordered: Referrals: Allopathic & Osteopathic Physicians : Internal Medicine : Rheumatology. Tessie Edmondson. Evaluate and treat ordered Referral Ordered: Hematology (related to Anemia) ordered Referral Ordered: Referrals: Hematology. Evaluate and treat ordered History Of Present Illness Encounter Date Complaint History Of Prese nt Illness fibromyalgia1 Pt has fibromyal tristan and neck and back pain pt has muscle spasm Pt takes amitriptyline, neurontin and flexeril PRN for pain. Pt also takes norco for pain ,Pt failed NSAID and ultram. Pt states that her pain is not well controlled. Pt also has migraine headache. Pt has daily headache Pt failed multiple migraine prevention medication. Pt was released by neurology .Pt denies any acute headache anemia1 Pt has chronic a nemia and she feels fatigue all the time .Pt has known heavy period for years but she is noncompliant with any OUTSIDE OPERATOR recommendation including uterine embolization. Pt states that she is still doing research on above. Pt is seeing GI Pt told me she will do colonoscopy soon ,Pt denies any GI bleeding fibromyalgia1 Pt has fibromyal tristan and neck and back pain pt has muscle spasm Pt takes amitriptyline, neurontin and effexor norco for pain ,Pt failed NSAID and ultram ,Pt denies any worsening pain. lung nodule1 Pt had ? lung no dule on chest x ray Pt denies any chest pain or sob .Pt denies any hemoptysis Pt had chest CT done which was benign BV Pt c/o BV sympto ms Pt has recurrent BV symptoms after period. Pt has some itchy and fishy discharge odor .Pt usually responds to clindamycin topical .Pt just finished her period last week. Pt notices above symptoms right after period. Pt denies any pelvic pain or bleeding HIVE1 Pt c/o feeling s ome scattered itching, some vague HIVEs around face and sometimes on her skin for several months Pt thinks that she is allergic to something but not sure why. Pt denies any new food or any other hygiene products Pt denies any sob or wheezing lung nodule1 Pt has not had c hest CT done yet. PT denies any hemoptysis, sob or cough fibromyalgia1 Pt has fibromyal tristan ,Pt takes norco, neurontin, amitriptyline and doing ok Pt denies any worsening pain anemia1 Pt has chronic a nemia, Pt just had to get iron infusion. Pt has heavy period due to fibroid and she has not scheduled for surgery yet. Pt supposes to get uterine ablation . hemorrhoid1 Pt notices a lar ge external hemorrhoid since last Saturday. Pt notices some bright red blood per rectum also Pt c/o pain .Pt did see GI who is referring her to surgeon but she is waiting for call back. Pt was given hydrocortisone pramoxine but was too expensive fibromyalgia1 Pt has fibromyal tristan and neck and back pain pt has muscle spasm Pt takes amitriptyline, neurontin and effexor norco for pain ,Pt failed NSAID and ultram ,Pt denies any worsening pain. anxiety1 Pt has anxiety a nd depression Pt takes effexor and buspar. Pt doing ok Pt denies any suicidal or homicidal thought Pt denies any crying spells GERD1 Pt has intermitt ent GERD Pt is seeing GI and she was started on omeprazole and reglan recently. Pt told me she never had colonoscopy. Pt wants to get one done .Pt is discussing with her GI now .Pt has IBS symptoms. Pt denies any blood in stool anemia1 Pt has anemia du e to heavy period. Pt is discussing with crime scene investigator about uterine ablation now. lung nodule1 Pt recently went to ER and she had chest x ray done which showed lung nodule. Radiologist suggested lung Ct pt denies any hemoptysis, sob or cough Pt does not smoke anxiety1 Pt has chronic a nxiety and depression pt takes effexor and buspar .Pt is seeing psychiatrist Pt is very confused about her medication Pt states that her psychiatrist wants to wean her off effexor and start her on something else but she has no idea what she will be put on. Pt denies any suicidal or homicidal thought vaginal discharge1 Pt c/o vagina l discharge and some odor for 2-3 days Pt denies any vaginal bleeding Pt denies any pelvic pain Pt denies any flank pain. Pt denies any UTI symptoms. Pt could not get a hold of the her OUTSIDE OPERATOR. Pt denies any risk for STD. pain Pt has fibromyal tristan and neck and back pain pt has muscle spasm Pt takes amitriptyline, neurontin and effexor norco for pain ,Pt failed NSAID and ultram ,Pt denies any worsening pain. anxiety1 Pt has chronic a nxiety and depression Pt takes effexor and buspar .Pt is seeing psychiatrist but she is very confused. Pt does not know the name of the psychiatrist and she told me she thinks that she is on some medication but she is not sure what it is. pt denies any suicidal or homicidal thought ,PT denies any crying spells Pt states that her she has panic attacks all the time flu Pt has influenza type A Pt c/o cough, headache, myalgia, recently and she went to ER and was tested positive for influenza A. Pt was given tamiflu Pt feels better currently. Pt denies any fever, headache. Pt still has mild myalgia and cough pt denies any sob lung nodule1 Pt has ? lung no dule on chest x ray recently from ER. Pt denies any hemoptysis fibromyalgia1 Pt has fibromyal tristan and chronic neck and back pain, Pt takes norco and flexeril PRn. Pt failed neurontin and lyrica Pt also takes amitriptyline. RLS Pt has RLS. Pt s tates that requip only help slightly ,Pt is anemic and she is seeing hematology and she got iron infusion multiple times this week. pt denies any Gi bleeding pain Pt has fibromyal tristan and neck and back pain pt has muscle spasm Pt takes amitriptyline, neurontin and effexor. Pt takes norco PRN for pain PT denies any worsening pain anemia1 Pt has chronic t ension headache. Pt also has migraine headache, Pt had normal head CT. She tried and failed effexor, neurontin, lyrica, topamax, propranolol. Pt denies any head injury or waking up at night with headache. Pt did see neurology who discharged her, Pt denies any worsening headache. Pt states that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
--- OUTSIDE RECORDS SUMMARY | 2024-09-13 08:01 | XMS_ITS | Clinical Summary ---
Author Organization [facility] Address [address] [place] [address] Care Team Providers Care Tripe Finisher Name Role Phone Sang Moise MD Primary Care Provider Source Comments [facility],non-owned Affiliates and Associated Physician Practices is amultiple site organization consisting of ambulatory clinics and hospital sitesin [place], [place], [place] and [place]. This disclosure is being madepursuant to the Care Everywhere program and may not contain all information available regarding this patient. Last updated 17.[facility] Allergies No known active allergies Medications * Be aware that medications may not be up to date on this document. Alwaysverify current medications with the patient. clindamycin (CLEOCIN) 2 % vaginal cream IVB FOR 5 NTS UTD 8 Active metoclopramide (REGLAN) 10 MG tablet Take 1 (one) tablet by mouth 2 times daily 8 Active amLODIPine (NORVASC) 10 MG tablet Take 1 (one) tablet by mouth once daily 1 Active cyclobenzaprine (FLEXERIL) 10 MG tablet Take 1 (one) tablet by mouth once daily 1 Active diclofenac potassium (CATAFLAM) 50 MG tablet Take 1 (one) tablet by mouth once daily 1 Active QUEtiapine (SEROQUEL) 25 MG tablet Take 1 (one) tablet by mouth at bedtime 1 Active metroNIDAZOLE vaginal (METROGEL - VAGINAL) 0.75 % vaginal gel as needed 2 Active carvedilol (COREG) 12.5 MG tablet Take 1 (one) tablet by mouth 2 times daily 2 Active hydrOXYzine HCl (ATARAX) 50 MG tablet Take 1 (one) tablet by mouth 3 times daily as needed 2 Active amoxicillin (Amoxil) 500 MG tablet Take 500 mg by mouth 2 times daily 2 Active triamcinolone acetonide (Kenalog) 0.1 % cream Apply to affected area two times daily at 4am and 4pm 3 Active sertraline (Zoloft) 50 MG tablet Take 1 (one) tablet by mouth once daily 3 Active oxybutynin (Ditropan) 5 MG tablet Take 1 (one) tablet by mouth 2 times daily 3 Active ondansetron (Zofran) 4 MG tablet TAKE 1 TABLET BY MOUTH THREE TIMES DAILY FOR 2 WEEKS 3 Active Talicia 250-12.5-10 MG CPDR TAKE 4 CAPSULES BY MOUTH THREE TIMES DAILY FOR 2 WEEKS 3 Active topiramate (Topamax) 25 MG tablet Take 2 (two) tablets by mouth 2 times daily 120 tablet 1 3 Active clobetasol (Temovate) 0.05 % solutionIndicati ons:Other cicatricial alopecia Apply scalp once daily for inflammation. 30 days supply. 50 mL 3 3 Active cetirizine (ZyrTEC) 10 MG tablet Take 1 (one) tablet by mouth once daily 30 tablet 2 3 Active azelastine (Astelin) 0.1 % nasal spray 3 Active diphenhydrAMINE (Benadryl) 25 MG capsule Take 1 (one) capsule by mouth every 6 hours as needed 3 Active DULoxetine (Cymbalta) 30 MG capsule TAKE 1 CAPSULE(30 MG) BY MOUTH DAILY 3 Active levoFLOXacin (Levaquin) 500 MG tablet TAKE 1 TABLET BY MOUTH EVERY DAY FOR 2 WEEKS 3 Active loratadine (Claritin) 10 MG tablet Take 1 (one) tablet by mouth once daily 3 Active ciclopirox (Loprox) 0.77 % suspensionIndica tions:Other seborrheic dermatitis Apply to affected area once daily 60 mL 4 3 Active Clascoterone (Winlevi) 1 % CREAIndications: Acne vulgaris 1 drop by Apply externally route at bedtime Apply to entire face at night after cleansing 60 g 1 3 Active Nurtec 75 MG tabletIndication s:Migraine without aura and without status migrainosus, not intractable DISSOLVE 1 TABLET ON THE TONGUE EVERY DAY NEEDED FOR MIGRAINE 8 tablet 5 3 Active dicyclomine (Bentyl) 20 MG tablet 4 Active famotidine (Pepcid) 20 MG tablet 4 Active losartan-hydroCH LOROthiazide (Hyzaar) 100-25 MG tablet Take 1 (one) tablet by mouth once daily 4 Active omeprazole (PriLOSEC) 40 MG capsule TAKE 1 CAPSULE BY MOUTH TWICE DAILY FOR 2 WEEKS Active ondansetron, disintegrating, (Zofran ODT) 4 MG tablet Take 1 (one) tablet by mouth every 8 hours as needed 4 Active predniSONE (Deltasone) 20 MG tablet TAKE 3 TABLETS BY MOUTH DAILY FOR 3 DAYS THEN TAKE 2 TABLETS BY MOUTH DAILY FOR 3 DAYS THEN TAKE 1 TABLET BY MOUTH DAILY FOR 3 DAYS 4 Active tobramycin-dexAM ETHasone (Tobradex) 0.3-0.1 % ophthalmic suspension SHAKE LIQUID AND INSTILL 1 DROP IN BOTH EYES EVERY 4 HOURS FOR 5 DAYS Active adapalene (Differin) 0.1 % gelIndications:A cne vulgaris Pea sized amount to entire face at night.. 30 days supply. 45 g 5 4 Active ketoconazole (Nizoral) 2 % shampooIndicatio ns:Other cicatricial alopecia Apply to wet hair, leave on for 3 minutes, then rinse; three times weekly. 30 days supply 120 mL 3 4 Active ondansetron, disintegrating, (Zofran ODT) 4 MG tablet Take 1 (one) tablet by mouth every 6 hours as needed for Nausea/Vomiting Allow tablet to dissolve on the tongue 15 tablet 4 Active pantoprazole EC (Protonix) 40 MG tablet Take 1 (one) tablet by mouth once daily 30 tablet 4 Active Active Problems Problem Noted Date Diagnosed Date OAB (overactive bladder) 04/07/2021 COVID-19 03/04/2021 Overview (08/30/2021): Last Assessment & Plan: Use of dayquil/Nyquil for cough Albuterol inhaler as needed every 4-6 hours Zofran for nausea. Drink fluids Take you anxiety medication to help lessen that part of your fears. Pelvic and perineal pain 12/30/2020 Acute vaginitis 09/21/2020 B12 deficiency 09/14/2020 Generalized abdominal pain 08/16/2020 Cervical strain 06/13/2020 Bunion of left foot 06/06/2020 Cardiomegaly 06/06/2020 Migraine 06/06/2020 Neuropathy 06/06/2020 Pain in unspecified joint 06/06/2020 Essential hypertension 04/04/2020 Overview (08/30/2021): Last Assessment & Plan: Chronic condition Uncontrolled D\c hyzaar Start coreg 12.5 mb bid Uterine fibroid 03/31/2020 Cervical spondylosis 02/24/2020 Chronic bilateral low back pain without sciatica 11/20/2019 Chronic neck pain 11/20/2019 Vitamin D deficiency 04/15/2018 Arthralgia of both hands 02/27/2018 MIKE positive 02/27/2018 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 Assessment & Plan (06/06/2020 4:46 PM CDT): Declines systemic therapy Mostly bothered by burning/itching Start clinical strength head and shoulders and there itch serum/oil Consider [place] kenalog Seborrheic dermatitis 09/12/2017 Assessment & Plan (06/06/2020 4:46 PM CDT): Head and shoulders Iron deficiency anemia due to chronic blood loss 07/02/2017 Body mass index (bmi) 29.0-29.9, adult 8 Overview (11/25/2020): IMO 2020 Anemia 10/31/2016 Immunizations Immunization Administration Dates Next Due DTP 09/29/1985, 3,1980,1980,1980 FLU VACCINE QUAD IIV4 SPLIT 0.25 ML IM 11/29/2015 HEP B VACCINE, PED/ADOL 09/05/1995 MMR 11/04/1989,05/03/1982 MUMPS 11/01/1989 POLIO OPV 09/29/1985, 3,1980,1980,1980 POLIO,HISTORIC VACCINE 10/28/1982 TDAP (7yrs+) 03/19/2016 Td (Adult), 2 Lf Tetanus Tox oid, Adsorbed, Pf 09/05/1995 Family History Medical History Relation Name Comments None Known Brother None Known Father None Known Maternal Aunt None Known Maternal Grandfather None Known Maternal Grandmother None Known Maternal Uncle Hypertension Mother None Known Paternal Aunt None Known Paternal Grandfather None Known Paternal Grandmother None Known Paternal Uncle None Known Sister Asthma Neg Hx CVA Neg Hx Cancer - Breast Neg Hx Cancer - Other Neg Hx Cancer - Skin, Melanoma Neg Hx Cancer - Skin, Non Melanoma Neg Hx Eczema Neg Hx Hemophilia Neg Hx Psoriasis Neg Hx Relation Name Status Comments Brother Father Alive Maternal Aunt Maternal Grandfather Maternal Grandmother Maternal Uncle Mother Alive Paternal Aunt Paternal Grandfather Paternal Grandmother Paternal Uncle Sister Social History Tobacco Use Types Packs/Day Years Used Date Smoking Tobacco: Never Smokeless Tobacco: Never Tobacco Cessation:Counseling Given: Not Answered Alcohol Use Standard Drinks/Week Comments Yes 0 (1 standard drink = 0.6 oz pur e alcohol) socially Comments No Sex and Gender Information Value Date Recorded Sex Assigned at Female 07/18/2021 1:02 AM CDT Legal Sex Female 5:33 AM DESKTOP 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 Gender Identity Female 07/18/2021 1:02 AM CDT Sexual Orientation Straight 07/18/2021 1: 02 AM CDT Last Filed Vital Signs Vital Sign Reading Time Taken Comments Blood Pressure 153/94 06/16/2023 3:57 AM CDT Pulse 81 06/16/2023 1:17 AM CDT Temperature 36.8 C (98.3 F) 06/16/2023 1:17 AM CDT Respiratory Rate 18 06/16/2023 1:17 AM CDT Oxygen Saturation 98% 06/16/2023 5:30 AM CDT Inhaled Oxygen Concentration - - Weight 99.8 kg (220 lb) 06/16/2023 1:17 AM CDT Height 177.8 cm (5' 10) 06/16/2023 1:17 AM CDT Body Mass Index 31.57 06/16/2023 1:17 AM CDT Plan of Treatment Health Maintenance Due Date Last Done Comments LIPID TESTING 1980 MEDICARE AWV 12 MONTHS 1980 Opioid Medication Agreement - Annual 1980 HIV SCREENING 1995 HEPATITIS B VACCINE (2 of 3 - 3-dose series) 10/03/1995 09/05/1995 HEPATITIS C SCREENING 03/14/1998 PAP SMEAR 2001 HPV VACCINE (1 - 3-dose SCDM series) 2007 COVID-19 VACCINE ( season) 2023 DEPRESSION SCREENING 02/26/2024 INFLUENZA VACCINE (#1) 2024 11/29/2015 MAMMOGRAM 07/19/2025 07/20/2023, 06/26, 11/29/2021, Additional history exists DTAP/TDAP/TD VACCINES (7 - Td or Tdap) 03/19/2026 03/19/2016, 09/05/1995, 09/29/1985, Additional history exists ZOSTER VACCINE (1 of 2) 2030 HIB VACCINE Aged Out No longer eligi ble based on patient's age to complete this topic MENINGOCOCCAL (Group B) VACCINE SHARED DECISION-MAKING Aged Out No longer eligible based on patient's age to complete this topic MENINGOCOCCAL GROUPS A/C/Y/W VACCINE Aged Out No longer eligible based on patient's age to complete this topic PNEUMOCOCCAL VACCINE Aged Out No long er eligible based on patient's age to complete this topic Insurance MEDICARE MEDICAID [place] [address] TP THIRD DEMOCRAT LIABILITY [employer] Liability Care Teams Tripe Finisher Relationship Specialty Start Date End Date Sang Moise MD [address] [address] PCP - General 10/30/19
--- OUTSIDE RECORDS SUMMARY | 2024-09-13 08:01 | XMS_ITS | Encounter Summary ---
Author Organization [facility] Address [address] [place] [address] Care Team Providers Care Electric Motor Tester Name Role Phone Raza Hunter MD Primary Care Provider [phone] Sang Moise MD Primary Care Provider [phone] Katya Bautista PA-C Primary Care Provider [phone] George Rodriguez MD Primary Care Provider [phone] Encounter Details Date Type Department Care Team (Late st Contact Info) Description 01/09/2020 Prep for Procedure [facility] [place], [place] [id number] Roberto Cedeno MD [address] [id number] Social History Tobacco Use Types Packs/Day Years Used Date Smoking Tobacco: Never Smokeless Tobacco: Never Alcohol Use Standard Drinks/Week Comments Yes 0 (1 standard drink = 0.6 oz pur e alcohol) socially Comments No Sex and Gender Information Value Date Recorded Sex Assigned at Not on file Legal Sex Female 11:10 PM CDT Gender Identity Female 03/17/2021 8:32 AM SUPERINTENDENT CONSTRUCTION Sexual Orientation Straight 03/17/2021 8: 32 AM SUPERINTENDENT CONSTRUCTION COVID-19 Exposure Response Date Recorded In the last month, have you been in contact with someone who was confirmed or suspected to have Coronavirus / COVID-19? No / Unsure 01/12/2020 9:41 AM SUPERINTENDENT CONSTRUCTION documented as of this encounter Plan of Treatment Not on file documented as of this encounter Results * PRE-SURGICAL/PRE-PROCEDURE CORONAVIRUS (COVID 19) (01/09/2020 11:25 AM SUPERINTENDENT CONSTRUCTION) CORONAVIRUS SARS COV 2 PCR (RESP) NOT DETECTED NOT DETECTED 01/10/2020 5:16 PM SUPERINTENDENT CONSTRUCTION [facility] Comment: A Not Detected (negative) test result for this test means that SARS- CoV-2 RNA was not present in the specimen above the limit of detection. A negative result does not rule out the possibility of COVID-19 and should not be used as the sole basis for treatment or patient management decisions. If COVID-19 is still suspected, based on exposure history together with other clinical findings, re-testing should be considered in consultation with public health authorities. Laboratory test results should always be considered in the context of clinical observations and epidemiological data in making a final diagnosis and patient management decisions. Please review the Fact Sheets and FDA authorized labeling available for health care providers and patients using the following websites: [email or web address]/fact-[email or web address]/[email or web address]/ fact-sheet2 This test has been authorized by the FDA under an Emergency Use Authorization (EUA) for use by authorized laboratories. Due to the current public health emergency, [facility] is receiving a high volume of samples from a wide variety of swabs and media for COVID-19 testing. In order to serve patients during this public health crisis, samples from appropriate clinical sources are being tested. Negative test results derived from specimens received in non-commercially manufactured viral collection and transport media, or in media and sample collection kits not yet authorized by FDA for COVID-19 testing should be cautiously evaluated and the patient potentially subjected to extra precautions such as additional clinical monitoring, including collection of an additional specimen. Methodology: Nucleic Acid Amplification Test (NAAT) includes RT-PCR or TMA Additional information about COVID-19 can be found at the [facility] website: [email or web address]. Test performed at [facility] [address] [place] [address] Director: DELIA ESCOBAR DO,MPH FIRST TEST YES 01/09/2020 3:30 PM SUPERINTENDENT CONSTRUCTION [facility] EMPLOYED IN HEALTHCARE NO 01/09/2020 3:30 PM SUPERINTENDENT CONSTRUCTION [facility] SYMPTOMATIC DEFINED BY CDC NO 01/09/2020 3:30 PM SUPERINTENDENT CONSTRUCTION [facility] DATE OF SYMPTOM ONSET NO 01/09/2020 5:44 PM SUPERINTENDENT CONSTRUCTION [facility] HOSPITALIZATION STATUS NO 01/09/2020 3:30 PM SUPERINTENDENT CONSTRUCTION [facility] PATIENT IN ICU NO 01/09/2020 3:30 PM SUPERINTENDENT CONSTRUCTION [facility] RESIDENT OF [facility] NO 01/09/2020 3:30 PM SUPERINTENDENT CONSTRUCTION [facility] NOT 01/09/2020 3:30 PM SUPERINTENDENT CONSTRUCTION [facility] PATIENT'S RACE BLACK OR 01/09/2020 3:30 PM SUPERINTENDENT CONSTRUCTION [facility] ETHNICITY NONHISPANIC 01/09/2020 3:30 PM SUPERINTENDENT CONSTRUCTION [facility] SOURCE (QST) NASOPHARYNGEAL SWAB 01/09/2020 3:30 PM SUPERINTENDENT CONSTRUCTION [facility] NASOPHARYNGEAL SWAB / Unknown 01/09/2020 11:25 AM SUPERINTENDENT CONSTRUCTION us Roberto Cedeno MD MICROBIOLOGY - GENERAL JACKIE MCNULTY Final Result [facility] [address] [place] [address], [place] [phone] [facility] [id number] [place] [id number], documented in this encounter Visit Diagnoses Diagnosis Early satiety- Primary Change in bowel habits Other symptoms involving digestive system documented in this encounter Additional Health Concerns Infection Onset Date Last Indicated Resolved Time COVID-19 Rule Out 01/09/2020 01/09/2020 01/10/2020 5:16 PM SUPERINTENDENT CONSTRUCTION COVID-19 Rule Out 03/29/2020 03/29/2020 03/29/2020 10:33 AM SUPERINTENDENT CONSTRUCTION COVID-19 Rule Out 03/29/2020 03/29/2020 03/29/2020 8:27 PM SUPERINTENDENT CONSTRUCTION COVID-19 Rule Out 03/17/2021 03/17/2021 2021 2:50 AM SUPERINTENDENT CONSTRUCTION COVID-19 Rule Out 12/29/2021 12/29/2021 12/29/2021 9:28 PM CDT COVID-19 Rule Out 01/02/2023 01/02/2023 01/03/2023 12:06 AM SUPERINTENDENT CONSTRUCTION documented as of this encounter Care Teams Electric Motor Tester Relationship Specialty Start Date End Date Raza Hunter MD PCP - General FAMILY PRACTICE 04/09/18 01/11/20 Sang Moise MD PCP - General FAMILY PRACTICE 01/12/20 07/30/22 Katya Bautista PA-C [address] [place] [address] PCP - General PHYSICIAN DRIVING TEACHER 07/31/22 06/25/23 George Rodriguez MD [address] [place] [address] PCP - General FAMILY PRACTICE 06/26/23 documented as of this encounter
--- OUTSIDE RECORDS SUMMARY | 2024-09-13 08:01 | XMS_ITS | Encounter Summary ---
Author Organization [facility] Address [address] [place] [address] Care Team Providers Care Mentally Retarded Teacher Name Role Phone Raza Hunter MD Primary Care Provider [phone] Sang Moise MD Primary Care Provider [phone] Katya Bautista PA-C Primary Care Provider [phone] George Rodriguez MD Primary Care Provider [phone] Encounter Details Date Type Department Care Team (Late st Contact Info) Description 12/09/2018 Hospital Orders Only [facility] Interventional Radiology [address] [facility] [place], [place] [id number] Shauna Corley MD [address] [place] [id number] Social History Tobacco Use Types Packs/Day Years Used Date Smoking Tobacco: Never Smokeless Tobacco: Never Alcohol Use Standard Drinks/Week Comments No 0 (1 standard drink = 0.6 oz pur e alcohol) socially Comments No Sex and Gender Information Value Date Recorded Sex Assigned at Not on file Legal Sex Female 11:10 PM CDT Gender Identity Female 03/17/2021 8:32 AM PARI MUTUEL TICKET SELLER Sexual Orientation Straight 03/17/2021 8: 32 AM PARI MUTUEL TICKET SELLER documented as of this encounter Plan of Treatment Not on file documented as of this encounter Visit Diagnoses Not on filedocumented in this encounter Additional Health Concerns Infection Onset Date Last Indicated Resolved Time COVID-19 Rule Out 01/09/2020 01/09/2020 01/10/2020 5:16 PM PARI MUTUEL TICKET SELLER COVID-19 Rule Out 03/29/2020 03/29/2020 03/29/2020 10:33 AM PARI MUTUEL TICKET SELLER COVID-19 Rule Out 03/29/2020 03/29/2020 03/29/2020 8:27 PM PARI MUTUEL TICKET SELLER COVID-19 Rule Out 03/17/2021 03/17/2021 2021 2:50 AM PARI MUTUEL TICKET SELLER COVID-19 Rule Out 12/29/2021 12/29/2021 12/29/2021 9:28 PM CDT COVID-19 Rule Out 01/02/2023 01/02/2023 01/03/2023 12:06 AM PARI MUTUEL TICKET SELLER documented as of this encounter Care Teams Mentally Retarded Teacher Relationship Specialty Start Date End Date Raza Hunter MD PCP - General FAMILY PRACTICE 04/09/18 01/11/20 Sang Moise MD PCP - General FAMILY PRACTICE 01/12/20 07/30/22 Katya Bautista PA-C [address] [place] [address] PCP - General PHYSICIAN DULITE MACHINE BLUER 07/31/22 06/25/23 Georeg Rodriguez MD [address] [facility] [address] [place] [address] PCP - General FAMILY PRACTICE 06/26/23 documented as of this encounter
[2024-09-13 08:04] VITALS: BP 195/117; PULSE 99; RESP 20; TEMP 36.1; O2SAT 88
[2024-09-13 08:21] VITALS: BP 150/98; PULSE 102; RESP 20; O2SAT 99
[2024-09-13 08:22] VITALS: BP 190/112; PULSE 88; RESP 20; O2SAT 100
[2024-09-13 08:23] LABS: BEDSIDEPREGUCG Negative (Negative)
[2024-09-13 08:24] VITALS: BP 155/121; PULSE 111
--- NOTE | 2024-09-13 08:32 | ED_ITS ---
HPI - Nausea/Vomiting/Diarrhea General Chief complaint: Nausea/Vomiting/Diarrhea Stated complaint: N/V/D X3D Time Seen by Provider: 09/13/24 08:05 Source: patient Mode of arrival: ambulatory Limitations: no limitations History of Present Illness HPI Narrative: 44yo female Patient presents with report of nausea, vomiting, and diarrhea of 2-3 days duration. She states she has had 2 episodes of nonbloody emesis. She has also had 2-3 episodes of voluminous watery diarrhea. She does not believe it is bloody however she is currently menstruating. She has a history of heavy menses and her period Currently is also very heavy, going through 1-2 tampons an hour although this is not unusual for her. Her history of menorrhagia has caused her to be anemic requiring both blood transfusions previously as well as frequent iron infusions. She sees a wire mesh gate assembler, Roni Badillo in [facility], for this and has labs drawn every 6-8 weeks with iron infusions scheduled as a result of these labs. She also currently follows with an Ob Gyne and recently saw them last week. For her heavy menses she has previously had both an embolization and an ablation and there is discussion of consideration of hysterectomy next given persistent symptoms. She sees a school inspector as well and has an upcoming endoscopy and colonoscopy scheduled for September. She has been unable to keep her blood pressure medications down. No sick contacts. She is having some slight low abdominal cramping which she states feels consistent with her typical menstrual cramps. History of fibroids. No recent travel. Her OB Gyne recently placed her on Macrobid and Pyridium for a urinary tract infection when she saw them last week. Her last bowel movement was this morning which was still watery/large volume. She notes that she primarily stays home and doesn't go out much. Related Data Home Medications ?Medication ?Instructions ?Recorded ?Confirmed ?Last Taken ?Type atenolol 50 mg tablet 50 mg PO DAILY 09/22/23 09/22/23 Unknown History Allergies Allergy/AdvReac Type Severity Reaction Status Date / Time No Known Allergies Allergy Verified 09/13/24 08:56 [facility] Past Medical History Medical History History of blood transfusion Anemia Menorrhagia Uterine fibroid Social History Social History Living arrangements: alone Occupation/Education: unemployed Exam 2 Narrative: GENERAL: Well-appearing, well-nourished, and in no acute distress. HEAD: Normocephalic, atraumatic. EYES: Non injected, non icteric ENT: Nares clear, no rhinorrhea or epistaxis. Gross auditory acuity intact. Tacky mucous membranes. NECK: Supple. No meningismus. CHEST: Speaking in full sentences. No respiratory distress. HEART: Regular rate and rhythm. . ABDOMEN: Soft, nondistended. No rigidity or guarding. Not peritoneal. No tenderness to palpation throughout. EXTREMITIES: Normal range of motion. No lower extremity edema. SKIN: Warm, dry, no rash. NEURO: No focal deficits. Alert and oriented. Answering questions. Following commands. Normal speech without aphasia or dysarthria. PSYCH: Normal mood and affect. Course Vital Signs Vital signs: Vital Signs Temperature 97.0 F L 09/13/24 08:04 Pulse Rate 99 09/13/24 08:04 Respiratory Rate 20 09/13/24 08:04 Blood Pressure 195/117 H 09/13/24 08:04 Pulse Oximetry 88 L 09/13/24 08:04 Oxygen Delivery Room Air 09/13/24 08:04 Temperature 97.0 F L 09/13/24 08:04 Pulse Rate 94 09/13/24 09:17 Respiratory Rate 20 09/13/24 09:17 Blood Pressure 174/103 H 09/13/24 09:17 Pulse Oximetry 97 09/13/24 09:17 Oxygen Delivery Room Air 09/13/24 08:04 MDM - Nausea/Vomiting/Diarrhea MDM Narrative Medical decision making narrative: This is a 44-year-old female patient with history of fibroids, menorrhagia, and anemia presenting with nausea vomiting and diarrhea of 2-3 days duration. She is also currently menstruating and notes that she is experiencing heavy period Which is not unusual for her. In the emergency department she is afebrile with vital signs notable for hypertension. She has been unable to keep her antihypertensive down given her nausea and vomiting. It was initially recorded that her O2 saturation was low however this appears to have been an error as she had a pulse rate of the same value and with repeated recording that is normal, she is on room air. test negative. IV fluids and ondansetron initially ordered. The differential for acute ( less than 14d) diarrhea includes infectious etiologies (viral, preformed toxins, toxins formed after colonization, invasive bacteria, and parasites), medications, inflammatory causes (IBD, radiation enteritis, ischemic colitis, diverticulitis), malabsorption, secretory causes, or motility disorders. Mild leukocytosis. Notably patient is not anemic. Mild hypokalemia. Oral repletion is ordered. Magnesium normal. Urinalysis with abnormalities including bacteriuria, hematuria (not surprising given menstruating), some WBCs and leukocyte esterase. She was recently treated with Macrobid but possibly not susceptible to this medication. Urine culture is pending but will prescribe alternative antibiotic. Will choose Augmentin given some GI penetration as well although discussed that typically viral. Thyroid normal. Plan discharge home with return precautions, instructions for prompt outpatient follow up. Discussed patient's workup with her. She verifies understanding. Will rest and maintain her hydration. Advised of urine Cx in process. Notified that gastroenteritis is normally viral but her viral swab was negative. We discussed the ketones in her urine are likely due to dehydration. Also prescribed ondansetron. Dicyclomine Rx for abdominal cramping although felt by patient to be due to menstruation. Denies needing a work note as not currently working. Differential Diagnosis Differential diagnosis: Likely food poisoning, gastroenteritis, clostridium difficile infection, drug-induced nausea and vomiting, dehydration and other ( spectrum (including ectopic)) Lab Data Attestation: I reviewed the patient's lab results. 09/13/24 08:12 09/13/24 08:12 Labs: Lab Results 09/13/24 09/13/24 09/13/24 Range/Units 08:12 08:12 08:12 WBC 12.8 H (4.5-10.0) K/mm3 RBC 5.25 (4.2-5.4) M/mm3 Hgb 13.1 (12.0-15.0) g/dL Hct 41.2 (37.0-47.0) % MCV 78.5 L (80-100) fl MCH 25.0 L (26-34) pg MCHC 31.8 L (32-36) g/dl RDW 16.7 H (11.5-14.5) % Plt Count 347 (150-375) k/mm3 MPV 10.5 H (7.4-10.4) fl Immature Gran % (Auto) 0.4 (0-0.5) % Neut % (Auto) 81.2 H (45.5-73.1) % Lymph % (Auto) 12.4 L (18.3-44.2) % [place] % (Auto) 5.1 (2.6-8.5) % Eos % (Auto) 0.5 (0-4.4) % Baso % (Auto) 0.4 (0.2-1.2) % Lymph # (Auto) 1.59 (0.9-3.2) K/mm3 [place] # (Auto) 0.7 H (0.1-0.6) K/mm3 Eos # (Auto) 0.1 (0-0.3) K/mm3 Baso # (Auto) 0.1 (0.0-0.1) K/mm3 Abs Immat Gran (auto) 0.05 H (0.00-0.031) K/mm3 Absolute Neuts (auto) 10.4 H (1.3-6.7) K/mm3 Absolute Nucleated RBC 0.000 (0.0-0.012) K/mm3 Nucleated RBC % 0.0 (0.0-0.2) % Sodium 139 (137-145) mmol/L Potassium 3.2 L (3.4-5.0) mmol/L Chloride 105 (98-107) mmol/L Carbon Dioxide 20 L (22-30) mmol/L Anion Gap 14 H (4-12) mmol/L BUN 8 (7-17) mg/dL Creatinine 0.82 (0.7-1.0) mg/dL Estim Creat Clear Calc 94 ml/min Estimated GFR > 60 (59 - ) Glucose 103 (65-110) mg/dL Calcium 9.5 (8.4-10.2) mg/dL Magnesium 2.1 Cancelled (1.6-2.3) mg/dL Total Bilirubin 0.6 (0.2-1.3) mg/dL AST 24 (14-36) U/L ALT 17 (6-35) U/L Alkaline Phosphatase 62 (38-126) U/L Total Protein 8.0 (6.3-8.2) g/dL Albumin 4.7 (3.5-5.1) g/dL Lipase 35 (23-300) U/L TSH 0.786 Cancelled (0.465-4.680) uIU/mL Urine Color (Yellow) Urine Appearance (Clear) Urine pH (5.0-9.0) Ur Specific [place] (1.001-1.035) Urine Protein (Negative) mg/dL Urine Glucose (UA) (Negative) mg/dL Urine Ketones (Negative) mg/dL Ur Blood (Man) (Negative) Urine Nitrate (Negative) Urine Bilirubin (Negative) Urine Urobilinogen (<2.0) mg/dL Leukocyte Esterase Rfl (Negative) JEVON/UL Urine RBC (0-2) /hpf Urine WBC (0-3) /hpf Ur Squamous Epith Cells (Few) /hpf Urine Bacteria /hpf POC Urine HCG, Qual (Negative) Influenza A (RT-PCR) (Negative) Influenza B (RT-PCR) (Negative) SARS-CoV-2 RNA (RT-PCR) (Negative) 09/13/24 09/13/24 09/13/24 Range/Units 08:19 08:21 08:46 WBC (4.5-10.0) K/mm3 RBC (4.2-5.4) M/mm3 Hgb (12.0-15.0) g/dL Hct (37.0-47.0) % MCV (80-100) fl MCH (26-34) pg MCHC (32-36) g/dl RDW (11.5-14.5) % Plt Count (150-375) k/mm3 MPV (7.4-10.4) fl Immature Gran % (Auto) (0-0.5) % Neut % (Auto) (45.5-73.1) % Lymph % (Auto) (18.3-44.2) % [place] % (Auto) (2.6-8.5) % Eos % (Auto) (0-4.4) % Baso % (Auto) (0.2-1.2) % Lymph # (Auto) (0.9-3.2) K/mm3 [place] # (Auto) (0.1-0.6) K/mm3 Eos # (Auto) (0-0.3) K/mm3 Baso # (Auto) (0.0-0.1) K/mm3 Abs Immat Gran (auto) (0.00-0.031) K/mm3 Absolute Neuts (auto) (1.3-6.7) K/mm3 Absolute Nucleated RBC (0.0-0.012) K/mm3 Nucleated RBC % (0.0-0.2) % Sodium (137-145) mmol/L Potassium (3.4-5.0) mmol/L Chloride (98-107) mmol/L Carbon Dioxide (22-30) mmol/L Anion Gap (4-12) mmol/L BUN (7-17) mg/dL Creatinine (0.7-1.0) mg/dL Estim Creat Clear Calc ml/min Estimated GFR (59 - ) Glucose (65-110) mg/dL Calcium (8.4-10.2) mg/dL Magnesium (1.6-2.3) mg/dL Total Bilirubin (0.2-1.3) mg/dL AST (14-36) U/L ALT (6-35) U/L Alkaline Phosphatase (38-126) U/L Total Protein (6.3-8.2) g/dL Albumin (3.5-5.1) g/dL Lipase (23-300) U/L TSH (0.465-4.680) uIU/mL Urine Color Red H (Yellow) Urine Appearance Turbid H (Clear) Urine pH 6.0 (5.0-9.0) Ur Specific [place] 1.030 (1.001-1.035) Urine Protein 2+ H (Negative) mg/dL Urine Glucose (UA) Negative (Negative) mg/dL Urine Ketones 4+ H (Negative) mg/dL Ur Blood (Man) 3+ H (Negative) Urine Nitrate Negative (Negative) Urine Bilirubin 1+ H (Negative) Urine Urobilinogen 0.2 (<2.0) mg/dL Leukocyte Esterase Rfl Trace H (Negative) JEVON/UL Urine RBC 51-100 H (0-2) /hpf Urine WBC 10-15 H (0-3) /hpf Ur Squamous Epith Cells Few (Few) /hpf Urine Bacteria 2+ /hpf POC Urine HCG, Qual Negative (Negative) Influenza A (RT-PCR) Negative (Negative) Influenza B (RT-PCR) Negative (Negative) SARS-CoV-2 RNA (RT-PCR) Negative (Negative) Discharge Plan Discharge Clinical Impression: Nausea & vomiting, Diarrhea, Menorrhagia, Hypokalemia, Abnormal urinalysis, Gastroenteritis Patient Disposition: Home Condition: Stable Instructions: Antibiotic Form, Urinary Tract Infection in Women (DC), Gastroenteritis (DC), Acute Nausea and Vomiting (DC), Acute Diarrhea (ED), Menorrhagia (ED) Additional Instructions: As we discussed, there were abnormalities on your urinalysis. You are being prescribed an antibiotic and a urine culture is pending. The ondansetron/Zofran oral disintegrating tablet can help with nausea vomiting. Rest and maintain your hydration. You can supplement this with Gatorade/Pedialyte if desired (does not have to be name brand). The dicyclomine/Bentyl can help with abdominal cramping. Avoid using Immodium unless necessary. Gastroenteritis is typically viral although your viral swab is negative. Follow-up with your primary care physician, wire mesh gate assembler and ObGyn. Return to the emergency department any new or worsening symptoms. Patient Language: Georgian Prescriptions: New ondansetron 4 mg tablet,disintegrating 4 mg PO Q8H PRN (Reason: nausea and vomiting) Qty: 7 0RF amoxicillin-pot clavulanate [Augmentin] 500-125 mg tablet 1 tablet PO Q12H 5 Days Qty: 10 0RF dicyclomine 10 mg capsule 10 mg PO BID PRN (Reason: abdominal pain) Qty: 10 0RF No Action atenolol 50 mg tablet 50 mg PO DAILY amoxicillin-pot clavulanate 875-125 mg tablet 1 tablet PO Q12H 7 Days Qty: 14 0RF amoxicillin-pot clavulanate 875-125 mg tablet 1 tablet PO Q12H Qty: 14 0RF Follow-up/Referrals: Jennifer,MD George [Primary Care Provider] - Time of Disposition: 10:21
[2024-09-13 08:42] LABS: Hematocrit 41.2 % (37.0-47.0); Hemoglobin 13.1 g/dL (12.0-15.0); Immature Granulocyte Percent A 0.4 % (0-0.5); Lymphocytes Absolute Auto 1.59 K/mm3 (0.9-3.2); Mean Corpuscular HGB Conc 31.8 g/dl (32-36); Mean Corpuscular Hemoglobin 25.0 pg (26-34); Mean Corpuscular Volume 78.5 fl (80-100); Nucleated Red Blood Cells Absolute Auto 0.000 K/mm3 (0.0-0.012); Nucleated Red Blood Cells Perc 0.0 % (0.0-0.2); Platelet Count Result 347 k/mm3 (150-375); Red Blood Count 5.25 M/mm3 (4.2-5.4); White Blood Count 12.8 K/mm3 (4.5-10.0)
[2024-09-13 08:48] LABS: Alanine Aminotransferase 17 U/L (6-35); Albumin Level 4.7 g/dL (3.5-5.1); Alkaline Phosphatase 62 U/L (38-126); Anion Gap 14 mmol/L (4-12); Aspartate Amino Transferase 24 U/L (14-36); Bilirubin,Total 0.6 mg/dL (0.2-1.3); Blood Urea Nitrogen 8 mg/dL (7-17); Calcium 9.5 mg/dL (8.4-10.2); Carbon Dioxide 20 mmol/L (22-30); Chloride 105 mmol/L (98-107); Estimated CRCL calculation 94 ml/min; Estimated Glomerular Filt Rate > 60; Glucose 103 mg/dL (65-110); Lipase 35 U/L (23-300); Potassium 3.2 mmol/L (3.4-5.0); Sodium 139 mmol/L (137-145); Total Protein 8.0 g/dL (6.3-8.2)
--- OUTSIDE RECORDS SUMMARY | 2024-09-13 08:51 | XMS_ITS | Encounter Summary ---
Author Organization [facility] Address [address] [place] [address] Care Team Providers Care Foundation Digger Name Role Phone Avani Cheung MD Primary Care Provider [phone] Raza Hunter MD Primary Care Provider [phone] Sang Moise MD Primary Care Provider [phone] Katya Bautista PA-C Primary Care Provider [phone] George Rodriguez MD Primary Care Provider [phone] Encounter Details Date Type Department Care Team (Late st Contact Info) Description 02/11/2017 RX Orders Only [facility] [address] [place], [place] [id number] Sang Taylor, PharmD, [place], [place] [id number] Social History Tobacco Use Types Packs/Day Years Used Date Smoking Tobacco: Never Smokeless Tobacco: Never Alcohol Use Standard Drinks/Week Comments Yes 0 (1 standard drink = 0.6 oz pur e alcohol) socially Comments Unknown Sex and Gender Information Value Date Recorded Sex Assigned at Not on file Legal Sex Female 11:10 PM CDT Gender Identity Female 03/17/2021 8:32 AM SAFETY ENGINEER PRESSURE VESSELS Sexual Orientation Straight 03/17/2021 8: 32 AM SAFETY ENGINEER [employer]URE VESSELS documented as of this encounter Plan of Treatment Not on file documented as of this encounter Visit Diagnoses Not on filedocumented in this encounter Additional Health Concerns Infection Onset Date Last Indicated Resolved Time COVID-19 Rule Out 01/09/2020 01/09/2020 01/10/2020 5:16 PM SAFETY ENGINEER [employer]ESSE[employer] COVID-19 Rule Out 03/29/2020 03/29/2020 03/29/2020 10:33 AM SAFETY ENGINEER [employer]URE VESSELS COVID-19 Rule Out 03/29/2020 03/29/2020 03/29/2020 8:27 PM SAFETY ENGINEER [employer]URE VESSELS COVID-19 Rule Out 03/17/2021 03/17/2021 2021 2:50 AM SAFETY ENGINEER PRESSURE VESSELS COVID-19 Rule Out 12/29/2021 12/29/2021 12/29/2021 9:28 PM CDT COVID-19 Rule Out 01/02/2023 01/02/2023 01/03/2023 12:06 AM SAFETY ENGINEER PRESSURE VESSELS documented as of this encounter Care Teams Foundation Digger Relationship Specialty Start Date End Date Avani Cheung MD [address] [place] [id number] PCP - General FAMILY PRACTICE 01/08/17 04/08/18 Raza Hunter MD [address] [place] [address] [place] [id number] PCP - General FAMILY PRACTICE 04/09/18 01/11/20 Sang Moise MD [address] [facility] [address] [place], [place] PCP - General FAMILY PRACTICE 01/12/20 07/30/22 Katya Bautista PA-C [address] [place] [address] PCP - General PHYSICIAN MANAGED CARE COORDINATOR 07/31/22 06/25/23 George Rodriguez MD [address] [facility] [address] [place] [address] PCP - General FAMILY PRACTICE 06/26/23 documented as of this encounter
--- OUTSIDE RECORDS SUMMARY | 2024-09-13 08:51 | XMS_ITS | Encounter Summary ---
Author Organization [facility] Address [address] [place] [address] Care Team Providers Care Lorry Weigher Name Role Phone Raza Hunter MD Primary Care Provider [phone] Sang Moise MD Primary Care Provider [phone] Katya Bautista PA-C Primary Care Provider [phone] George Rodriguez MD Primary Care Provider [phone] Encounter Details Date Type Department Care Team (Late st Contact Info) Description 01/09/2020 Prep for Procedure [facility] [place], [place] [address] Roberto Cedeno MD [address] [id number] Social History Tobacco Use Types Packs/Day Years Used Date Smoking Tobacco: Never Smokeless Tobacco: Never Alcohol Use Standard Drinks/Week Comments Yes 0 (1 standard drink = 0.6 oz pur e alcohol) socially Comments No Sex and Gender Information Value Date Recorded Sex Assigned at Not on file Legal Sex Female 11:10 PM CDT Gender Identity Female 03/17/2021 8:32 AM QUALIFIED CRAFT WORKER ELECTRICIAN Sexual Orientation Straight 03/17/2021 8: 32 AM QUALIFIED CRAFT WORKER ELECTRICIAN COVID-19 Exposure Response Date Recorded In the last month, have you been in contact with someone who was confirmed or suspected to have Coronavirus / COVID-19? No / Unsure 01/12/2020 9:41 AM QUALIFIED CRAFT WORKER ELECTRICIAN documented as of this encounter Plan of Treatment Not on file documented as of this encounter Results * PRE-SURGICAL/PRE-PROCEDURE CORONAVIRUS (COVID 19) (01/09/2020 11:25 AM QUALIFIED CRAFT WORKER ELECTRICIAN) CORONAVIRUS SARS COV 2 PCR (RESP) NOT DETECTED NOT DETECTED 01/10/2020 5:16 PM QUALIFIED CRAFT WORKER ELECTRICIAN [facility] Comment: A Not Detected (negative) test result [...] providers and patients using the following websites: https://[email or web address] Hire/home/Covid-19/HCP/NAAT/fact-sheet2 https://[email or web address] H[employer]/home/Covid-19/Patients/NAAT/ fact-sheet2 This test has been authorized by the FDA under an Emergency Use Authorization (EUA) for use by authorized laboratories. Due to the current public health emergency, [facility] is receiving a high volume of samples [...] about COVID-19 can be found at the [facility] website: www.[employer].Driver Hire/Covid19. Test performed at [facility] [place] [address] [place] [address] Director: DELIA ESCOBAR DO,MPH FIRST TEST YES 01/09/2020 3:30 PM QUALIFIED CRAFT WORKER ELECTRICIAN [facility] EMPLOYED IN HEALTHCARE NO 01/09/2020 3:30 PM QUALIFIED CRAFT WORKER ELECTRICIAN [facility] SYMPTOMATIC DEFINED BY CDC NO 01/09/2020 3:30 PM QUALIFIED CRAFT WORKER ELECTRICIAN [facility] DATE OF SYMPTOM ONSET NO 01/09/2020 5:44 PM QUALIFIED CRAFT WORKER ELECTRICIAN [facility] HOSPITALIZATION STATUS NO 01/09/2020 3:30 PM QUALIFIED CRAFT WORKER ELECTRICIAN [facility] PATIENT IN ICU NO 01/09/2020 3:30 PM QUALIFIED CRAFT WORKER ELECTRICIAN [facility] RESIDENT OF [facility] NO 01/09/2020 3:30 PM QUALIFIED CRAFT WORKER ELECTRICIAN [facility] NOT 01/09/2020 3:30 PM QUALIFIED CRAFT WORKER ELECTRICIAN [facility] PATIENT'S RACE BLACK OR 01/09/2020 3:30 PM QUALIFIED CRAFT WORKER ELECTRICIAN [facility] ETHNICITY NONHISPANIC 01/09/2020 3:30 PM QUALIFIED CRAFT WORKER ELECTRICIAN [facility] SOURCE (QST) NASOPHARYNGEAL SWAB 01/09/2020 3:30 PM QUALIFIED CRAFT WORKER ELECTRICIAN [facility] NASOPHARYNGEAL SWAB / Unknown 01/09/2020 11:25 AM QUALIFIED CRAFT WORKER ELECTRICIAN us Roberto Cedeno MD MICROBIOLOGY - GENERAL JACKIE MCNULTY Final Result [facility] [address] [place] [address], [place] [phone] [facility] [id number] [place] [id number], documented in this encounter Visit Diagnoses Diagnosis Early satiety- Primary Change in bowel habits Other symptoms involving digestive system documented in this encounter Additional Health Concerns Infection Onset Date Last Indicated Resolved Time COVID-19 Rule Out 01/09/2020 01/09/2020 01/10/2020 5:16 PM QUALIFIED CRAFT WORKER ELECTRICIAN COVID-19 Rule Out 03/29/2020 03/29/2020 03/29/2020 10:33 AM QUALIFIED CRAFT WORKER ELECTRICIAN COVID-19 Rule Out 03/29/2020 03/29/2020 03/29/2020 8:27 PM QUALIFIED CRAFT WORKER ELECTRICIAN COVID-19 Rule Out 03/17/2021 03/17/2021 2021 2:50 AM QUALIFIED CRAFT WORKER ELECTRICIAN COVID-19 Rule Out 12/29/2021 12/29/2021 12/29/2021 9:28 PM CDT COVID-19 Rule Out 01/02/2023 01/02/2023 01/03/2023 12:06 AM QUALIFIED CRAFT WORKER ELECTRICIAN documented as of this encounter Care Teams Lorry Weigher Relationship Specialty Start Date End Date Raza Hunter MD PCP - General FAMILY PRACTICE 04/09/18 01/11/20 Sang Moise MD PCP - General FAMILY PRACTICE 01/12/20 07/30/22 Katya Bautista PA-C [address] [place] [address] PCP - General PHYSICIAN TROLLEY CAR OPERATOR 07/31/22 06/25/23 George Rodriguez MD [address] [facility] [address] [place] [address] PCP - General FAMILY PRACTICE 06/26/23 documented as of this encounter
--- OUTSIDE RECORDS SUMMARY | 2024-09-13 08:51 | XMS_ITS | Continuity of Care Document ---
Author Organization [facility] Address [address] [place] [address] [place] [address] Phone Care Team Providers Care Post Splitter Name Role Phone Raza Hunter MD Unavailable Unavailable Allergies, Adverse Reactions, Alerts Substance Reaction Status Criticality No Known Allergies Active No Inform ation Medications Medication Instructions Dosage Effective Dates (start - stop) Status Comments [place] 10 mg-325 mg tablet take 1 by [...] pain , avoid driving or operate machines omeprazole 20 mg capsule,delayed release take 1 capsule by oral route every day before a meal 20 MG - Active Reglan 10 mg tablet take 1 tablet by oral route 3 times every day 10 MG - Active amitriptyline 50 mg tablet [...] Diagnoses Date Provider Providers Copied on Encounter [facility], [address] [place], [place], [address], tel:[phone] [facility] No Information 0 Hunter Raza. [address], [place], [place], [address] , [place]. tel:[phone] OFFICE/OUTPA TIENT VISIT, [facility], [address], [place], [place], [address], tel:[phone] [facility] fibromyalg ia1 (chief complaint) anemia1 (chief complaint) AnemiaFibromyalgiaM igrainePatient's other noncompliance with medication regimen 0 Dale Raza. [address], [place], [place], [address] , [place]. tel:[phone] OFFICE/OUTPA TIENT VISIT, [facility], [address], [place], [place], [address], [place] [phone] [facility] fibromyalg ia1 (chief complaint) lung nodule1 (chief complaint) HIVE1 (chief complaint) BV (chief complaint) Solitary lung noduleFibromyalgiaA cute vaginitisUrticaria 0 Dale Raza. [address], [place], [place], [address] , [place]. tel:[phone] OFFICE/OUTPA TIENT VISIT, [facility], [address], [place], [place], [address], [place] tel:[phone] [facility] fibromyalg ia1 (chief complaint) anemia1 (chief complaint) hemorrhoid 1 (chief complaint) lung nodule1 (chief complaint) HemorrhoidSolitary lung noduleFibromyalgiaA nemia 0 Dlae Person. [address], [place], [place], [address] , [place]. [phone] OFFICE/OUTPA TIENT VISIT, [facility], [address], [place], [place], [address], [place] tel:[phone] [facility] fibromyalg ia1 (chief complaint) anxiety1 (chief complaint) GERD1 (chief complaint) anemia1 (chief complaint) lung nodule1 (chief complaint) FibromyalgiaGeneral ized Anxiety DisorderGERD w/o esophagitisAnemiaSo litary lung nodule 0 Dale Person. [address], [place], [place], [address] , [place]. tel:[phone] OFFICE/OUTPA TIENT VISIT, [facility], [address], [place], [place], [address], [place] tel:[phone] [facility] pain (chief complaint) vaginal discharge1 (chief complaint) anxiety1 (chief complaint) FibromyalgiaGeneral ized Anxiety DisorderLeukorrhea 0 Dale Person. [address], [place], [place], [address] , [place]. [phone] OFFICE/OUTPA TIENT VISIT, [facility], [address], [place], [place], [address], [place] tel:[phone] [facility] flu (chief complaint) lung nodule1 (chief complaint) fibromyalg ia1 (chief complaint) anxiety1 (chief complaint) Viral infectionSolitary lung noduleFibromyalgiaG eneralized Anxiety Disorder 0 Dale Person. [address], [place], [place], [address] , [place]. [phone] OFFICE/OUTPA TIENT VISIT, [facility], [address] [place], [address], [place] tel:[phone] [facility] RLS (chief complaint) pain (chief complaint) anemia1 (chief complaint) FibromyalgiaRestles s legs syndromeMigraineAne art 0 Dale Person. [address], [place], [address] , [place]. [phone] OFFICE/OUTPA TIENT VISIT, [facility], [address] [place], [address], [place] tel:[phone] [facility] anxiety1 (chief complaint) fibromyalg ia1 (chief complaint) swelling1 (chief complaint) Generalized Anxiety DisorderFibromyalgi aAnemiaRestless legs syndromeNeuropathy 0 Dale Person. [address], [place], [place], [address] , [place]. tel:[phone] Referring Provider: [address], [place], [place], [address]. tel:[phone] OFFICE/OUTPA TIENT VISIT, [facility], [address] [place], [address], [place] tel:[phone] [facility] anxiety1 (chief complaint) skin (chief complaint) fibromyalg ia (chief complaint) Contact dermatitisFibromyal giaGeneralized Anxiety Disorder 9 Dale Person. [address], [place], [place], [address] , [place]. tel:[phone] Referring Provider: Trace Fl[address], [place], [place], [address]. tel:[phone] OFFICE/OUTPA TIENT VISIT, [facility], [address], [place], [place], [address], [place] tel:[phone] [facility] anxiety1 (chief complaint) fibromyalg ia (chief complaint) FibromyalgiaGeneral ized Anxiety Disorder 9 Dale Person. [address], [place], [place], [address] , [place]. tel:[phone] OFFICE/OUTPA TIENT VISIT, [facility], [address], [place], [place], [address], [place] tel:[phone] [facility] anxiety1 (chief complaint) fibromyalg ia1 (chief complaint) neuropathy 1 (chief complaint) hEADCHE (chief complaint) FibromyalgiaGeneral ized Anxiety DisorderNeuropathyM igraine 9 Dale Person. [address], [place], [place], [address] , [place]. tel:[phone] Referring Provider: Trace Fl[address], [place], [place], [address]. tel:[phone] OFFICE/OUTPA TIENT VISIT, [facility], [address], [place], [place], [address], [place] tel:[phone] [facility] anxiety1 (chief complaint) fibromyalg ia1 (chief complaint) insomnia1 (chief complaint) Generalized Anxiety DisorderFibromyalgi aInsomnia 9 Dale Person. [address], [place], [place], [address] , [place]. [phone] Referring Provider: Trace [address], [place], [place], [address]. tel:[phone] OFFICE/OUTPA TIENT VISIT, [facility], [address], [place], [place], [address], [place] tel:[phone] [facility] chronic pain1 (chief complaint) pelvic congestion 1 (chief complaint) HTN (chief complaint) FibromyalgiaPelvic painEssential (primary) hypertensionOvarian cyst 9 Dale Person. [address], [place], [place], [address] , [place]. [phone] Referring Provider: Trace Fl[address], [place], [place], [address]. tel:[phone] PREV VISIT, EST, AGE 18-39 [facility], [address], [place], [place], [address], [place] tel:[phone] [facility] PHysical (chief complaint) Encntr for general adult medical exam w/o abnormal findings 9 Dale Person. [address], [place], [place], [address] , [place]. [phone] Referring Provider: [address], [place], [place], [address]. tel:[phone] OFFICE/OUTPA TIENT VISIT, [facility], [address], [place], [place], [address], [place] tel:[phone] [facility] anxiety1 (chief complaint) fibromyalg ia1 (chief complaint) burn1 (chief complaint) pelvic pain1 (chief complaint) FibromyalgiaPelvic painGeneralized Anxiety DisorderRash 9 Dale Person. [address], [place], [place], [address] , [place]. tel:[phone] Referring Provider: Trace Fl[address], [place], [place], [address]. tel:[phone] OFFICE/OUTPA TIENT VISIT, [facility], [address], [place], [place], [address], [place] tel:[phone] [facility] pelvic pain1 (chief complaint) fibromyalg ia1 (chief complaint) anxiety1 (chief complaint) Pelvic painDysmenorrheaFib romyalgiaGeneralize d Anxiety Disorder 9 Dale Yost [address], [place], [place], [address] , [place]. tel:[phone] OFFICE/OUTPA TIENT VISIT, [facility], [address], [place], [place], [address], [place] tel:[phone] [facility] fibromyalg ia1 (chief complaint) mold1 (chief complaint) anxiety1 (chief complaint) HTN (chief complaint) FibromyalgiaContact with and (suspected) exposure to mold (toxic)Essential (primary) hypertensionGeneral ized Anxiety Disorder 9 Dale Yost [address], [place], [place], [address] , [place]. tel:[phone] Referring Provider: [address], [place], [place], [address]. tel:[phone] OFFICE/OUTPA TIENT VISIT, [facility], [address], [place], [place], [address], [place] tel:[phone] [facility] fibromyalg ia1 (chief complaint) cardiomega ly1 (chief complaint) HTN (chief complaint) mold exposure1 (chief complaint) CardiomegalyFibromy algiaEssential (primary) hypertensionContact with and (suspected) exposure to mold (toxic) 0 9 Dale Yost [address], [place], [place], [address] , [place]. tel:[phone] Referring Provider: [address], [place], [place], [address]. tel:[phone] OFFICE/OUTPA TIENT VISIT, [facility], [address], [place], [place], [address], [place] tel:[phone] [facility] liver (chief complaint) cardiomega ly1 (chief complaint) fibromyalg ia1 (chief complaint) CardiomegalyFatty liverFibromyalgia 9 Dale Person. [address], [place], [place], [address] , [place]. tel:[phone] Referring Provider: Raza Hunter, [address], [place], [place], [address]. tel:[phone] OFFICE/OUTPA TIENT VISIT, [facility], [address], [place], [place], [address], [place] tel:[phone] [facility] Fibromyalg ia1 (chief complaint) liver lesion1 (chief complaint) MIKE (chief complaint) bunion1 (chief complaint) FibromyalgiaRaised antibody titerBunion of left footLiver disease 9 Dale Person. [address], [place], [place], [address] , [place]. tel:[phone] Referring Provider: Trace Florez [address], [place], [place], [address]. tel:[phone] OFFICE/OUTPA TIENT VISIT, [facility], [address], [place], [place], [address], [place] tel:[phone] [facility] fibromyalg ia1 (chief complaint) HTN (chief complaint) Essential (primary) hypertensionFibromy algia 9 Dale Person. [address], [place], [place], [address] , [place]. tel:[phone] Referring Provider: Raza Hunter, [address], [place], [place], [address]. tel:[phone] OFFICE/OUTPA TIENT VISIT, [facility], [address], [place], [place], [address], [place] tel:[phone] [facility] ANA1 (chief complaint) fibromyalg ia1 (chief complaint) liver lesion1 (chief complaint) FibromyalgiaRaised antibody titerLiver disease 9 Dale Yost [address], [place], [place], [address] , [place]. tel:[phone] Referring Provider: [address], [place], [place], [address]. tel:[phone] OFFICE/OUTPA TIENT VISIT, [facility], [address], [place], [place], [address], [place] tel:[phone] [facility] itching1 (chief complaint) fibromyalg ia1 (chief complaint) abdominal pain1 (chief complaint) FibromyalgiaNeuropa thyRaised antibody titerFatty liverRash 9 Dale Yost [address], [place], [place], [address] , [place]. [phone] Referring Provider: [address], [place], [address]. tel:[phone] OFFICE/OUTPA TIENT VISIT, [facility], [address] [place], [address], [place] tel:[phone] [facility] chronic pain1 (chief complaint) anxiety1 (chief complaint) neuropathy 1 (chief complaint) FibromyalgiaNeuropa thyGeneralized Anxiety DisorderRaised antibody titerAnemia 8 Dale Yost [address], [place], [place], [address] , [place]. [phone] OFFICE/OUTPA TIENT VISIT, [facility], [address] [place], [address], [place] tel:[phone] [facility] Chronic pain1 (chief complaint) anxiety1 (chief complaint) anemia1 (chief complaint) AnemiaNeuropathyGen eralized Anxiety DisorderFibromyalgi a 0 8 Dale Yost [address], [place], [place], [address] , [place]. tel:[phone] Referring Provider: Trace Florez [address], [place], [place], [address]. tel:[phone] OFFICE/OUTPA TIENT VISIT, [facility], [address], [place], [place], [address], [place] tel:[phone] [facility] anemia1 (chief complaint) chronic pain1 (chief complaint) AnemiaFibromyalgiaN europathy 8 Dale Person. [address], [place], [place], [address] , [place]. tel:[phone] Referring Provider: Trace Florez [address], [place], [place], [address]. tel:[phone] OFFICE/OUTPA TIENT VISIT, [facility], [address], [place], [place], [address], [place] tel:[phone] [facility] joint pain1 (chief complaint) NeuropathyPain in unspecified jointLupus anticoagulant syndrome 8 Dale Person. [address], [place], [place], [address] , [place]. tel:[phone] Referring Provider: Trace Florez [address], [place], [place], [address]. tel:[phone] OFFICE/OUTPA TIENT VISIT, [facility], [address], [place], [place], [address], [place] tel:[phone] [facility] anemia1 (chief complaint) low D (chief complaint) ANA1 (chief complaint) anxieyt1 (chief complaint) AnemiaVitamin D deficiency, unspecifiedLupus anticoagulant syndromeGeneralized Anxiety Disorder 8 Dale Person. [address], [place], [place], [address] , [place]. [phone] Referring Provider: Trace Florez [address], [place], [place], [address]. tel:[phone] OFFICE/OUTPA TIENT VISIT, [facility], [address], [place], [place], [address], tel:[phone] [facility] anemia1 (chief complaint) heavy period1 (chief complaint) chronic pain1 (chief complaint) anxiety1 (chief complaint) Body mass index (BMI) 29.0-29.9, adultChronic pain syndromeGeneralized Anxiety DisorderAnemiaIrreg ular period Apr-3 0-201 8 Dale Person. [address] [facility] [place], [address] , [place]. tel:[phone] Referring Provider: Trace [address] [place], [place], [address]. tel:[phone] PREV VISIT, NEW, AGE 18-39 [facility], [address] [place], [place], [address], [place] tel:[phone] [facility] Physical (chief complaint) Encounter for general adult medical exam w abnormal findingsAnemiaMigra ineChronic pain syndromeBody mass index (BMI) 29.0-29.9, adultGeneralized Anxiety Disorder Apr-2 8-201 8 Dale Person. [address] [facility] [place], [address] , [place]. tel:[phone] Referring Provider: Trace Fl[address]z [address] [facility] [address], [place], [place], [address]. tel:[phone] Family History Family Member Type Diagnosis Age At Onset Brother Problem (finding) Depression Mother Problem (finding) Hypertension Father Problem (finding) Alive and well Problem (finding) Family history of Depre ssion Brother Problem (finding) Alive and well Payers Payer name Insurance type Covered green party ID Authoriza tion(s) No Information Social History [...] ordered Referral Referred To: Chiquita Valentin [address] [facility]
[address], [phone] Ordered: Referrals: Allopathic & Osteopathic Physicians : Obstetrics & Gynecology. Chiquita Valentin. Evaluate and treat ordered Referral Ordered: Physical Therapy (related to Fibromyalgia) ordered Referral Ordered: DOPPLER ECHO EXAM, HEART ordered Referral Ordered: MICHELLE ASTORGA -Podiatric Medicine & Surgery Service Providers : Consumer Electronic Retail Specialist (related to Bunion of left foot) ordered Referral Referred To: MICHELEL ASTORGA [facility] [facility],[address] [place], [place], [phone] Ordered: Referrals: Podiatric Medicine & Surgery Service Providers : Consumer Electronic Retail Specialist. MICHELLE ASTORGA. Evaluate and treat ordered Referral [...] To: Tessie Edmondson [address]
[facility] [address] [place], [place] [phone] Ordered: Referrals: Allopathic & Osteopathic Physicians : [...] years but she is noncompliant with any RADIOLOGIST CHIEF OF BREAST IMAGING recommendation including uterine embolization. Pt states that [...] to heavy period. Pt is discussing with safety instructor about uterine ablation now. lung nodule1 Pt [...] not get a hold of the her RADIOLOGIST CHIEF OF BREAST IMAGING. Pt denies any risk for STD. pain [...] on effexor, buspar pt just saw psychiatrist CRYPTOANALYSIS TEACHER who increase neurontin vs effexor. Pt is [...] fibroid. pt just had MRi done by safety instructor. Pt has pelvic pain Pt denies any [...] MIKE and she did see rheumatology at [facility] and was cleared of any rheumatological condition. [...] chronic p elvic pain. Pt just seen safety instructor and she had ultrasound done and she will do pelvic vein embolization soon. Pt denies any acute pain Pt denies any acute bleeding. pt again wants more pain meds due to dysmenorrhea pelvic pain1 Pt states that s he has dysmenorrhea. Pt has fibroid. Pt has pelvic congestion syndrome. Pt feels nauseated with severe pain during her period monthly pt. Her current RADIOLOGIST CHIEF OF BREAST IMAGING recommended hysterectomy but she does NOT want that now. Pt failed uterine ablation. Pt actually has harris with RADIOLOGIST CHIEF OF BREAST IMAGING at [facility] soon. Pt wants more norco [...] Pt is on wellbutrin now from her RADIOLOGIST CHIEF OF BREAST IMAGING. Pt denies any suicidal or homicidal thought [...] and other joint pain Pt is seeing nuclear weapons specialist and is being worked up due to elevated MIKE but she does not have a diagnosis yet Pt takes norco PRN for pain. Pt wants to try medical marijuana Pt states that her pain is not well controlled. HTN Pt has borderlin e HTN Pt denies any acute chest pain or headache fibromyalgia1 Pt has fibromyal tirstan and diffuse joint pain. Pt is seeing [...] will make harris to see neurology at [facility]. Pt just seen rheumatology and had lab [...] not have neurologist anymore. her neurology at [facility] canceled her harris due to insurance issue. Patient does need NCS/EMG due to diffuse paresthesia and also muscle pain. She told me her neurologist at [facility] canceled her appointment due to insurance issue. [...] hematology Pt just started some pill from safety instructor to try to help with her period. [...] has appointment with neurology next month at [facility]. Pt has neuropathy symptoms all over body. [...] o Body mass index (BMI) 32.0-32.9, adult Perform monthly self breast examinations. Related to [...] adult Increase physical activity Relat ed to Generalized Anxiety Disorder Weight management Related to Gen eralized Anxiety Disorder Special diet education Related t o Body mass index (BMI) 28.0-28.9, adult Medications as instructed Relate d to Fibromyalgia Special diet education Related t o Body mass index (BMI) 29.0-29.9, adult Weight management Related to Car diomegaly Special diet education Related t o Body mass index (BMI) 29.0-29.9, adult Increase physical activity Relat ed to Cardiomegaly Weight management Related to Car diomegaly Medications as instructed Relate d to Fibromyalgia Special diet education Related t o Body mass index (BMI) 29.0-29.9, adult Weight management Related to Ying sed antibody [...] Anemia Weight management Related to Ane art Special diet education Related t o Body mass index (BMI) 28.0-28.9, adult Weight management Related to Parul ropathy Special [...]
--- OUTSIDE RECORDS SUMMARY | 2024-09-13 08:51 | XMS_ITS | Encounter Summary ---
Author Organization [facility] Address [address] [place] [address] Care Team Providers Care Greaser And Oiler Name Role Phone Raza Hunter MD Primary Care Provider [phone] Sang Moise MD Primary Care Provider [phone] Katya Bautista PA-C Primary Care Provider [phone] George Rodriguez MD Primary Care Provider [phone] Encounter Details Date Type Department Care Team (Late st Contact Info) Description 12/09/2018 Hospital Orders Only [facility] Interventional Radiology [facility] [place], [place] [id number] Shauna Corley MD [address] [place] [phone] Social History Tobacco Use Types Packs/Day Years Used Date Smoking Tobacco: Never Smokeless Tobacco: Never Alcohol Use Standard Drinks/Week Comments No 0 (1 standard drink = 0.6 oz pur e alcohol) socially Comments No Sex and Gender Information Value Date Recorded Sex Assigned at Not on file Legal Sex Female 11:10 PM CDT Gender Identity Female 03/17/2021 8:32 AM SERVICE DESK TEAM LEAD Sexual Orientation Straight 03/17/2021 8: 32 AM SERVICE DESK TEAM LEAD documented as of this encounter Plan of Treatment Not on file documented as of this encounter Visit Diagnoses Not on filedocumented in this encounter Additional Health Concerns Infection Onset Date Last Indicated Resolved Time COVID-19 Rule Out 01/09/2020 01/09/2020 01/10/2020 5:16 PM SERVICE DESK TEAM LEAD COVID-19 Rule Out 03/29/2020 03/29/2020 03/29/2020 10:33 AM SERVICE DESK TEAM LEAD COVID-19 Rule Out 03/29/2020 03/29/2020 03/29/2020 8:27 PM SERVICE DESK TEAM LEAD COVID-19 Rule Out 03/17/2021 03/17/2021 2021 2:50 AM SERVICE DESK TEAM LEAD COVID-19 Rule Out 12/29/2021 12/29/2021 12/29/2021 9:28 PM CDT COVID-19 Rule Out 01/02/2023 01/02/2023 01/03/2023 12:06 AM SERVICE DESK TEAM LEAD documented as of this encounter Care Teams Greaser And Oiler Relationship Specialty Start Date End Date Raza Hunter MD PCP - General FAMILY PRACTICE 04/09/18 01/11/20 Sang Moise MD PCP - General FAMILY PRACTICE 01/12/20 07/30/22 Katya Bautista PA-C [address] [place] [address] PCP - General PHYSICIAN SYSTEMS DESIGNER 07/31/22 06/25/23 George Rodriguez MD [address] [facility] [address] [place] [address] PCP - General FAMILY PRACTICE 06/26/23 documented as of this encounter
--- OUTSIDE RECORDS SUMMARY | 2024-09-13 08:51 | XMS_ITS | Encounter Summary ---
Author Organization [facility] Address [address] [place] [address] Care Team Providers Care Prestidigitator Name Role Phone Katya Bautista PA-C Primary Care Provider [phone] George Rodriguez MD Primary Care Provider [phone] Encounter Details Date Type Department Care Team (Late st Contact Info) Description 01/10/2023 Therapy Plan [facility] Infusion Services [address] [place] [address] Roni Badillo, DO [address] [place] [address] Social History Tobacco Use Types Packs/Day Years Used Date Smoking Tobacco: Never Smokeless Tobacco: Never Alcohol Use Standard Drinks/Week Comments Yes 0 (1 standard drink = 0.6 oz pur e alcohol) socially Comments No Sex and Gender Information Value Date Recorded Sex Assigned at Not on file Legal Sex Female 11:10 PM CDT Gender Identity Female 03/17/2021 8:32 AM LIVESTOCK NUTRITION TERRITORY MANAGER Sexual Orientation Straight 03/17/2021 8: 32 AM LIVESTOCK NUTRITION TERRITORY MANAGER documented as of this encounter Functional Status * RETIRED Are you deaf or do you have serious difficulty hearing Answer Date of Assessment Author Status No 03/31/2020 4:23 PM LIVESTOCK NUTRITION TERRITORY MANAGER Activ e * RETIRED Are you blind or do you have serious difficulty seeing, even when wearing glasses? Answer Date of Assessment Author Status No 03/31/2020 4:23 PM LIVESTOCK NUTRITION TERRITORY MANAGER Activ e * Do you have serious [...] unspecified documented in this encounter Care Teams Prestidigitator Relationship Specialty Start Date End Date Katya Bautista PA-C [address] [place] [address] PCP - General PHYSICIAN PAPER CLEANER 07/31/22 06/25/23 George Rodriguez MD [facility] [address] [place] [address] PCP - General FAMILY PRACTICE 06/26/23 documented as of this encounter
--- OUTSIDE RECORDS SUMMARY | 2024-09-13 08:51 | XMS_ITS | Encounter Summary ---
Author Organization [facility] - [facility] Address [address] [place] [address] Care Team Providers Care Track Repair Supervisor Name Role Phone Katya Bautista PA-C Primary Care Provider [phone] George Rodriguez MD Primary Care Provider [phone] Encounter Details Date Type Department Care Team (Late st Contact Info) Description 02/26/2023 [employer] [facility] [employer] [facility] [facility] [address] [place] [address] Agency [facility] Provider Patient amendment request Social History Tobacco Use Types Packs/Day Years Used Date Smoking Tobacco: Never Smokeless Tobacco: Never Alcohol Use Standard Drinks/Week Comments Yes 0 (1 standard drink = 0.6 oz pur e alcohol) socially Comments No Sex and Gender Information Value Date Recorded Sex Assigned at Not on file Legal Sex Female 11:10 PM CDT Gender Identity Female 03/17/2021 8:32 AM TRIM DIE MAKER Sexual Orientation Straight 03/17/2021 8: 32 AM TRIM DIE MAKER documented as of this encounter Functional Status * RETIRED Are you deaf or do you have serious difficulty hearing Answer Date of Assessment Author Status No 03/31/2020 4:23 PM TRIM DIE MAKER Activ e * RETIRED Are you blind or do you have serious difficulty seeing, even when wearing glasses? Answer Date of Assessment Author Status No 03/31/2020 4:23 PM TRIM DIE MAKER Activ e * Do you have serious difficulty walking or climbing stairs? Answer Date of Assessment Author Status No 03/31/2020 4:23 PM TRIM DIE MAKER Ana Nava RN Active * Do you [...] on filedocumented in this encounter Care Teams Track Repair Supervisor Relationship Specialty Start Date End Date Katya Bautista PA-C [address] [place] [address] PCP - General PHYSICIAN COMMUNICATIONS BILLING ANALYST 07/31/22 06/25/23 George Rodriguez MD [address] [facility] [address] [place] [address] PCP - General FAMILY PRACTICE 06/26/23 documented as of this encounter
--- OUTSIDE RECORDS SUMMARY | 2024-09-13 08:51 | XMS_ITS | Encounter Summary ---
Author Organization [facility] Address [address] [place] [address] Care Team Providers Care Mate Relief Name Role Phone Raza Hunter MD Primary Care Provider [phone] Sang Moise MD Primary Care Provider [phone] Katya Bautista PA-C Primary Care Provider [phone] George Rodriguez MD Primary Care Provider [phone] Encounter Details Date Type Department Care Team (Late st Contact Info) Description 09/26/2019 Prep for Procedure [facility] [place], [place] [address] Roberto Cedeno MD [address] [id number] Social History Tobacco Use Types Packs/Day Years Used Date Smoking Tobacco: Never Smokeless Tobacco: Never Alcohol Use Standard Drinks/Week Comments Yes 0 (1 standard drink = 0.6 oz pur e alcohol) socially Comments No Sex and Gender Information Value Date Recorded Sex Assigned at Not on file Legal Sex Female 11:10 PM CDT Gender Identity Female 03/17/2021 8:32 AM AUTOMATION LEAD Sexual Orientation Straight 03/17/2021 8: 32 AM AUTOMATION LEAD documented as of this encounter Plan of Treatment Not on file documented as of this encounter Visit Diagnoses Diagnosis Change in bowel habits- Primary Other symptoms involving digestive system documented in this encounter Additional Health Concerns Infection Onset Date Last Indicated Resolved Time COVID-19 Rule Out 01/09/2020 01/09/202001/0901/10/2020 5:16 PM AUTOMATION LEAD COVID-19 Rule Out 03/29/2020 03/29/2020 03/29/2020 10:33 AM AUTOMATION LEAD COVID-19 Rule Out 03/29/2020 03/29/2020 03/29/2020 8:27 PM AUTOMATION LEAD COVID-19 Rule Out 03/17/2021 03/17/2021 2021 2:50 AM AUTOMATION LEAD COVID-19 Rule Out 12/29/2021 12/29/2021 12/29/2021 9:28 PM CDT COVID-19 Rule Out 01/02/2023 01/02/2023 01/03/2023 12:06 AM AUTOMATION LEAD documented as of this encounter Care Teams Mate Relief Relationship Specialty Start Date End Date Raza Hunter MD PCP - General FAMILY PRACTICE 04/09/18 01/11/20 Sang Moise MD PCP - General FAMILY PRACTICE 01/12/20 07/30/22 Katya Bautista PA-C [address] [place] [address] PCP - General PHYSICIAN WATER OPERATOR 07/31/22 06/25/23 George Rodriguez MD [address] [place] [address] PCP - General FAMILY PRACTICE 06/26/23 documented as of this encounter
--- OUTSIDE RECORDS SUMMARY | 2024-09-13 08:51 | XMS_ITS | Clinical Summary ---
Author Organization [facility] Address [address] [place] [address] Care Team Providers Care Sand Hauler Name Role Phone George Rodriguez MD Primary Care Provider [phone] Allergies Active Allergy Reactions Criticality Noted Date [...] CDT Gender Identity Female 03/17/2021 8:32 AM SAS ANALYST Sexual Orientation Straight 03/17/2021 8: 32 AM SAS ANALYST Last Filed Vital Signs Vital Sign Reading [...] 10:09 AM 04/01/2020 2:06 PM Care Teams Sand Hauler Relationship Specialty Start Date End Date George Rodriguez MD [address] [place] [address] [place] [address] PCP - General FAMILY PRACTICE 06/26/23
--- OUTSIDE RECORDS SUMMARY | 2024-09-13 08:51 | XMS_ITS | Encounter Summary ---
Author Organization [facility] Address [address] [place] [address] Care Team Providers Care Night Clerk Name Role Phone Katya Bautista PA-C Primary Care Provider [phone] George Rodriguez MD Primary Care Provider [phone] Encounter Details Date Type Department Care Team (Late st Contact Info) Description 09/07/2022 [facility] [address] Marvel Garrison MA Social History Tobacco Use Types Packs/Day Years Used Date Smoking Tobacco: Never Smokeless Tobacco: Never Alcohol Use Standard Drinks/Week Comments Yes 0 (1 standard drink = 0.6 oz pur e alcohol) socially Comments No Sex and Gender Information Value Date Recorded Sex Assigned at Not on file Legal Sex Female 11:10 PM CDT Gender Identity Female 03/17/2021 8:32 AM MATZO FORMING MACHINE OPERATOR Sexual Orientation Straight 03/17/2021 8: 32 AM MATZO FORMING MACHINE OPERATOR documented as of this encounter Functional Status * RETIRED Are you deaf or do you have serious difficulty hearing Answer Date of Assessment Author Status No 03/31/2020 4:23 PM MATZO FORMING MACHINE OPERATOR Activ e * RETIRED Are you blind or do you have serious difficulty seeing, even when wearing glasses? Answer Date of Assessment Author Status No 03/31/2020 4:23 PM MATZO FORMING MACHINE OPERATOR Activ e * Do you have serious difficulty walking or climbing stairs? Answer Date of Assessment Author Status No 03/31/2020 4:23 PM MATZO FORMING MACHINE OPERATOR Ana Nava RN Active * Do [...] Rule Out 01/02/2023 01/02/2023 01/03/2023 12:06 AM MATZO FORMING MACHINE OPERATOR documented as of this encounter Care Teams Night Clerk Relationship Specialty Start Date End Date Katya Bautista PA-C [address] [place] [address] PCP - General PHYSICIAN BANK VAULT CLERK 07/31/22 06/25/23 George Rodriguez MD [address] [facility] [address] [place] [address] PCP - General FAMILY PRACTICE 06/26/23 documented as of this encounter
--- OUTSIDE RECORDS SUMMARY | 2024-09-13 08:51 | XMS_ITS | Clinical Summary ---
Author Organization [facility] Address [address] [place] [address] Phone Care Team Providers Care Table Top Tile Setter Name Role Phone Ying Avalos MD Unavailable Roni Badillo DO Unavailable Sang Moise MD Primary Care Provider [phone] Allergies No known active allergies Medications cetirizine [...] and pelvic pain She is scheduled to hand sizer. Cervical spondylosis 02/24/2020 Migraine headache 11/20/2019 Fibromyalgia [...] CDT Clinical Support [facility] [address] [id number] Iron deficiency anemia due to chronic blood loss (Primary Dx) 08/04/2024 Travel 07/29/2024 11:45 AM CDT Office Visit [facility] [address] [id number] Virgen Hutchins APRN, SHAREPOINT APPLICATION DEVELOPER Iron deficiency anemia, unspecified iron deficiency anemia type (Primary Dx); B12 deficiency; Hypertension, unspecified type 07/29/2024 11:35 AM CDT Lab [facility] [address] [id number] Alesia Senior MD Lab, [facility] deficiency anemia due to chronic blood loss; B12 deficiency 07/29/2024 Results Follow-Up [facility] [address] [phone] Virgen Hutchins APRN, SHAREPOINT APPLICATION DEVELOPER IRON W/ IRON BINDING CAPACITY [place], CMP [...] AM CDT Lab [facility] [address] [address] Lab, [facility] 11/24/2024 8:15 AM CDT Office Visit [facility] [address] [phone] Roni Badillo, DO [address] [place] [phone] Health Maintenance Due Date Last Done Comments [...] IRON 47(L) 50 - 212 ug/dL [facility] CLINICAL MANA[facility] UIBC 418(H) 155 - 355 ug/dL [facility] CLINICAL MANAGER [facility] TIBC 465 261 - 478 ug/dl [facility] CLINICAL MANAGER [facility] % Saturation 10(L) 20 - 50 % [facility] CLINICAL MANAGER [facility] 07/29/2024 11:1 8 AM CDT Narrative [facility]PICE CLINICAL MANAGER [facility] - 07/29/2024 12:22 PM CDT Release to patient->Immediate Virgen Hutchins REFINING STILL OPERATOR, SHAREPOINT APPLICATION DEVELOPER LAB SEND OUTS Final Result [facility]PICE CLINICAL MANAGER [facility] [place] [address], * (ABNORMAL) CBC WITH AUTO DIFF [place] (07/29/2024 11:18 AM CDT) WBC 8.2 4.0 - 10.0 10*3/uL [facility] CLINICAL MANAGER [facility] HGB 11.1(L) 11.2 - 15.7 g/dL [facility] CLINICAL MANAGER [facility] HCT 36.0 34.1 - 44.9 % [facility]PICE CLINICAL MANAGER [facility] PLT 384(H) 163 - 369 10*3/uL [facility] CLINICAL MANAGER [facility] MPV 9.7 9.4 - 12.4 fL [facility] CLINICAL MANAGER [facility] RBC 4.74 3.93 - 5.22 10*6/uL [facility] CLINICAL MANAGER [facility] MCV 76(L) 79 - 95 fL [facility] CLINICAL MANAGER [facility] MCH 23.4(L) 25.6 - 32.2 pg [facility]PICE CLINICAL MANAGER [facility] MCHC 30.8(L) 32.2 - 36.5 g/dL [facility]PICE CLINICAL MANAGER [facility] RDW 20.8(H) 11.6 - 14.4 % [facility] CLINICAL MANAGER [facility] Neutrophils % 65.8 36.0 - 66.0 % [facility] CLINICAL MANAGER [facility] Lymphocytes % 25.6 19.0 - 40.0 % [facility]PICE CLINICAL MANAGER [facility] Monocytes % 4.6 4.1 - 12.1 % [facility] CLINICAL MANAGER [facility] Eosinophils % 2.8 0.0 - 3.5 % [facility]PICE CLINICAL MANAGER [facility] Basophils % 0.5 0.0 - 1.0 % [facility]PICE CLINICAL MANAGER [facility] Absolute Neutrophils 5.4 1.4 - 6.6 10*3/uL [facility] CLINICAL MANAGER [facility] Absolute Lymphocytes 2.1 0.8 - 4.0 10*3/uL [facility] CLINICAL MANAGER [facility] Absolute Monocytes 0.4 0.2 - 1.2 10*3/uL [facility]PICE CLINICAL MANAGER [facility] Absolute Eosinophils 0.2 0.0 - 0.4 10*3/uL [facility] HOSPICE CLINICAL MANAGER [facility] Absolute Basophils 0.0 0.0 - 0.1 10*3/uL [facility]OSPICE CLINICAL MANAGER [facility] WBC Estimate Normal [facility] HOSPICE CLINICAL MANAGER [facility] Platelet Estimate High CA NCER HOSPICE CLINICAL MANAGER [facility] RBC Morphology Abnormal CANCE R HOSPICE CLINICAL MANAGER [facility] Microcytosis 1+ CANCER HOSPICE CLINICAL MANAGER [facility] Polychromasia 1+ CANCER HOSPICE CLINICAL MANAGER [facility] Anisocytosis 2+ [facility]ER HOSPICE CLINICAL MANAGER [facility] Poikilocytosis 1+ CANCE R HOSPICE CLINICAL MANAGER [facility] 07/29/2024 11:1 8 AM CDT Virgen Hutchins REFINING STILL OPERATOR, SHAREPOINT APPLICATION DEVELOPER LAB SEND OUTS Final Result [facility]PICE CLINICAL MANAGER [facility] [place] [address], * VITAMIN B12 (07/29/2024 11:18 AM CDT) Vitamin B12 394 180 - 914 pg/mL [facility]OSPICE CLINICAL MANAGER [facility] Blood 07/29/2024 11:1 8 AM CDT [facility] CANCER HOSPICE CLINICAL MANAGER [facility] - 07/30/2024 2:31 PM CDT Release to patient->Immediate Virgen Hutchins APRN, SHAREPOINT APPLICATION DEVELOPER CHEMISTRY ORDERABLES Final Result Performing Organization Address [facility] Co de Phone Number CANCER HOSPICE CLINICAL MANAGER [facility] [address] [place] [address], [place] [phone] * FOLIC ACID (FOLATE) (07/29/2024 11:18 AM CDT) Folate >20.00 >=5.90 ng/mL [facility]OSPICE CLINICAL MANAGER [facility] Blood 07/29/2024 11:1 8 AM CDT [facility] 07/30/2024 2:31 PM CDT Release to patient->Immediate IS THE PATIENT REQUIRED TO BE FASTING FOR 12 HOURS?->No Virgen Hutchins REFINING STILL OPERATOR, SHAREPOINT APPLICATION DEVELOPER CHEMISTRY ORDERABLES Final Result Performing Organization Address [facility] Co de Phone Number [facility] HOSPICE CLINICAL MANAGER [facility] [place] [address] [place] [address], [place] [phone] * FERRITIN (07/29/2024 11:18 AM CDT) Ferritin 21 11 - 307 ng/mL [facility] HOSPICE CLINICAL MANAGER [facility] Blood 07/29/2024 11:1 8 AM CDT [facility] 07/30/2024 2:31 PM CDT Release to patient->Immediate Virgen Hutchins APRN, SHAREPOINT APPLICATION DEVELOPER CHEMISTRY ORDERABLES Final Result Performing Organization Address [facility] Co de Phone Number [facility] HOSPICE CLINICAL MANAGER [facility] [address] [place] [address], [place] [phone] * (ABNORMAL) CMP (COMPREHENSIVE METABOLIC PANEL) (07/29/2024 11:18 AM CDT) Glucose 97 70 - 105 mg/dL [facility] Blood Urea Nitrogen 13 7 - 25 mg/dL [facility] Creatinine 0.8 0.6 - 1.2 mg/dL [facility] Sodium 139 136 - 145 mEq/L [facility] Potassium 3.4(L) 3.5 - 5.1 mEq/L [facility] Chloride 103 98 - 107 mEq/L [facility] Bicarbonate 26 21 - 31 mEq/L [facility] Total Bilirubin 0.4 0.3 - 1.0 mg/dL [facility] Alk. Phosphatase 51 34 - 104 U/L [facility] Aspartate Aminotransferase 13 13 - 39 U/L [facility] Alanine Aminotransferase 11 7 - 52 U/L [facility] Total Protein 6.8 6.4 - 8.9 g/dL [facility] Albumin 4.7 3.5 - 5.7 g/dL [facility] Calcium 9.5 8.6 - 10.3 mg/dL [facility] Anion Gap 13.4 7.0 - 15.0 mEq/L [facility] Globulin 2.1 2.0 - 3.5 g/dL [facility] EGFR 93 >60 ml/min/1. 73m2 [facility] Comment: This eGFR is calculated using 2020 CKD-EPI Creatinine equation without race modifier based on the NKF-ASN task force recommendations Equation: pSXC=125*min(SCr/k,1)a*max(SCr/k,1)-1.200*0.9938Age*1.012 (if female), where SCr is serum creatinine, k is 0.7 for females and 0.9 for males, and a is -0.241 for females and -0.302 for males Blood 07/29/2024 11:1 8 AM CDT Narrative [facility] - 07/29/2024 12:22 PM CDT Release to patient->Immediate IS THE PATIENT REQUIRED TO BE FASTING FOR 8 HOURS?->No us Virgen Hutchins REFINING STILL OPERATOR, SHAREPOINT APPLICATION DEVELOPER CHEMISTRY ORDERABLES Final Result [facility] CLINICAL [facility] [place] [address], from Last 3 Months Insurance MEDICARE MEDICAID [place] MEDICARE Care Teams Table Top Tile Setter Relationship Specialty Start Date End Date Sang Moise MD [address] [facility] [address] [place] [address] PCP - General Family Medicine 04/13/23 Ying Avalos MD Obstetrics & Gynecology 12/17/18 Roni Badillo DO [address] [place] [phone] Consulting Physician Hematology and Oncology 08/04/20 Kendell Eaton Gynecology 06/18/18
--- OUTSIDE RECORDS SUMMARY | 2024-09-13 08:51 | XMS_ITS | Clinical Summary ---
Author Organization [place] [id number] Address [address] [place] [address] Care Team Providers Care Communications Station Manager Name Role Phone Kendell Eaton MD Unavailable George Rodriguez MD Primary Care Provider [phone] Bebe Blue MD Unavailable [phone] Allergies No known active allergies Medications cetirizine [...] Plan Services (PPPS): Opioid Use: No Immunization: [id number]: Not Applicable. Apiytcy47: Not Applicable. PCV20: Highly Recommended Influenza: Highly [...] 03/04/2021 Assessment & Plan (03/04/2021 10:41 AM SYRUP BLENDER): Use of dayquil/Nyquil for cough Albuterol inhaler [...] and pelvic pain She is scheduled to reimbursement director. Degenerative disc disease, cervical 02/24/2020 Herniated cervical intervertebral disc 0 Migraine without status migrainosus, not intract able 11/20/2019 Neck pain 11/20/2019 Lumbar back pain 11/20/2019 Fibromyalgia 11/20/2019 Assessment & Plan (05/04/2024 9:26 AM CDT): Chronic. Uncontrolled. Renewal of Cannabis. Certification #: [id number] Migraine headache 11/20/2019 Acute vaginitis 07/30/2019 Overview [...] 08/27/2024 11:59 PM CDT Hospital Encounter [facility] Medical Office Bldg 1 Breast [facility] [address] [facility] [address] [place] [address] Screening mammogram, encounter for Discharge Disposition: Discharge to home or self care 07/30/2024 12:45 PM CDT Office Visit [facility] Family Medicine at [address] [place] [address] George Rodriguez MD Hypertension, essential [...] Congenital heart disease Daughter 1 Hypertension Father Ito Mental illness Father Tio Depression Mother Cori [...] = 0.6 oz pur e alcohol) socialy [facility] Utilities Answer Date Recorded In the past [...] Never 06/13/2023 How often do you attend sabianist or holiness serv ices? Never 06/13/2023 Do you belong to any clubs o r organizations such as sabianist groups, unions, fraternal or athletic groups, or [...] staff should administer the PHQ-9) 4 10/24/2023 [facility] [place] of Occupat ional Health - Occupational Stress [...] on file Legal Sex Female 2:44 AM SYRUP BLENDER Gender Identity Female 11/08/2020 7:14 AM CDT [...] Hep C Ab NON-REACTI VE NON-REACT YINA [facility] Comment: HCV antibody was non-reactive. There is no laboratory evidence of HCV infection. In most cases, no further action is required. However, if recent HCV exposure is suspected, a test for HCV RNA (test code 98096) is suggested. For additional information please refer to http://[email or web address].Family Pet/faq/KUM41a9 (This link is being provided for informational/ educational purposes only.) 06/17/2023 7:31 AM CDT 06/17/2023 7:34 AM CDT us George Rodriguez MD LAB MICROBIOLOGY - GENERAL ORDER GENE Final Result [facility] [id number] [place] [phone] from Last 3 Months or Most Recently Relevant to Health Maintenance Insurance MEDICARE [place] MEDICARE [place] MEDICARE Care Teams Communications Station Manager Relationship Specialty Start Date End Date George Rodriguez MD [address] [facility] [address] [place] [address] PCP - General Family Medicine 08/14/22 Kendell Eaton MD [address] [place] [address] Referring Physician Obstetrics and Gynecology 11/29/21 Bebe Blue MD [address] [place] [address] Consulting Physician Gastroenterology 11/23/22
--- OUTSIDE RECORDS SUMMARY | 2024-09-13 08:51 | XMS_ITS | Clinical Summary ---
Author Organization [facility] [employer] Address [address] [place] [address] Care Team Providers Care Wildfire Prevention Specialist Name Role Phone Sang Moise MD Primary Care Provider Source Comments [facility] [employer],non-owned Affiliates and Associated Physician Practices is amultiple site organization consisting of ambulatory clinics and hospital sitesin [place], [place], [place] and [place]. This disclosure is being madepursuant to the Care Everywhere program and may not contain all information available regarding this patient. Last updated 17.[facility] [employer] Allergies No known active allergies Medications * [...] AM CDT Legal Sex Female 5:33 AM CAREER PROFESSIONAL Gender Identity Female 07/18/2021 1:02 AM CDT [...] topic Insurance MEDICARE [place]ICAID [place] [address] TP THIRD LIBERTARIAN LIABILITY [employer] Party Liability Care Teams Wildfire Prevention Specialist Relationship Specialty Start Date End Date Sang Moise MD [address] [place] [address] PCP - General 10/30/19
--- OUTSIDE RECORDS SUMMARY | 2024-09-13 08:51 | XMS_ITS | Encounter Summary ---
Author Organization [facility] Address [address] [place] [address] Care Team Providers Care Program Lead Name Role Phone Katya Bautista PA-C Primary Care Provider [phone] George Rodriguez MD Primary Care Provider [phone] Encounter Details Date Type Department Care Team (Late st Contact Info) Description 02/26/2023 [employer] Message [employer] [facility] [address] [place] [address] [employer]), [facility] Provider Patient amendment request Social History Tobacco Use Types Packs/Day Years Used Date Smoking Tobacco: Never Smokeless Tobacco: Never Alcohol Use Standard Drinks/Week Comments Yes 0 (1 standard drink = 0.6 oz pur e alcohol) socially Comments No Sex and Gender Information Value Date Recorded Sex Assigned at Not on file Legal Sex Female 11:10 PM CDT Gender Identity Female 03/17/2021 8:32 AM OPERATIONS ACCOUNTANT Sexual Orientation Straight 03/17/2021 8: 32 AM OPERATIONS ACCOUNTANT documented as of this encounter Functional Status * RETIRED Are you deaf or do you have serious difficulty hearing Answer Date of Assessment Author Status No 03/31/2020 4:23 PM OPERATIONS ACCOUNTANT Activ e * RETIRED Are you blind or do you have serious difficulty seeing, even when wearing glasses? Answer Date of Assessment Author Status No 03/31/2020 4:23 PM OPERATIONS ACCOUNTANT Activ e * Do you have serious difficulty walking or climbing stairs? Answer Date of Assessment Author Status No 03/31/2020 4:23 PM OPERATIONS ACCOUNTANT Ana Nava RN Active * Do you [...] on filedocumented in this encounter Care Teams Program Lead Relationship Specialty Start Date End Date Katya Bautista PA-C [address] [place] [address] PCP - General PHYSICIAN DIGITAL CARTOGRAPHER 07/31/22 06/25/23 George Rodriguez MD [address] [place] [address] PCP - General FAMILY PRACTICE 06/26/23 documented as of this encounter
--- OUTSIDE RECORDS SUMMARY | 2024-09-13 08:51 | XMS_ITS | Referral Summary ---
Author Organization [facility] [address] Address [address] [place] [address] Care Team Providers Care Claim Processing Specialist Name Role Phone Kendell Eaton MD Unavailable [phone] George Rodriguez MD Primary Care Provider [phone] Bebe Blue MD Unavailable [phone] Encounters Date Type Department Care Team Description 08/27/2024 8:25 AM CDT - 08/27/2024 11:59 PM CDT Hospital Encounter [facility] Office [address] 1 Breast [facility] [address] [place] [address] Screening mammogram, encounter for Discharge Disposition: Discharge to home or self care 07/30/2024 12:45 PM CDT Office Visit [facility] [place] [address] [place] [address] George Rodriguez MD Hypertension, essential [...] Plan Services (PPPS): Opioid Use: No Immunization: [id number]: Not Applicable. [id number]: Not Applicable. 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 Drink fluids Take you anxiety medication to help lessen that part of your fears. 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 Degenerative disc disease, cervical 02/24/2020 Herniated cervical intervertebral disc 0 Migraine without status migrainosus, not intract able 11/20/2019 Neck pain 11/20/2019 Lumbar back pain 11/20/2019 Fibromyalgia 11/20/2019 Assessment & Plan (05/04/2024 9:26 AM CDT): Chronic. Uncontrolled. Renewal of Cannabis. Certification #: [id number] Migraine headache 11/20/2019 Acute vaginitis 07/30/2019 Overview [...] = 0.6 oz pur e alcohol) socialy [facility] Utilities Answer Date Recorded In the past 12 months has [employer], gas, oil, or water company threatened to shut off services in your home? No 06/13/2023 Social Connection and Isolation Panel [NHANES] A nswer Date Recorded In a typical week, how many times do you talk on the phone with family, friends, or neighbors? Never 06/13/2023 How often do you get together with friends or re latives? Never 06/13/2023 How often do you attend bahai or jew serv ices? Never 06/13/2023 Do you belong to any clubs o r organizations such as bahai groups, unions, fraternal or athletic groups, or [...] staff should administer the PHQ-9) 4 10/24/2023 [facility] Occupat ional [facility] - Occupational Stress Questionnaire Answer Date Recorded [...] place to sleep or slept in a correction (including now)? 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 There is no laboratory evidence of HCV infection. In most cases, no further action is required. However, if recent HCV exposure is suspected, a test for HCV RNA (test code 10835) is suggested. For additional information please refer to http://education.[place].Labmeeting/faq/QXR90x4 (This link is being provided for informational/ educational purposes only.) 06/17/2023 7:31 AM CDT 06/17/2023 7:34 AM CDT George Rodriguez MD LAB MICROBIOLOGY - GENERAL ORDER GENE Final Result [facility] [id number] [id number] from Last 3 Months or Most Recently Relevant to Health Maintenance Insurance MEDICARE IDPA MEDICARE IDPA MEDICARE Care Teams Claim Processing Specialist Relationship Specialty Start Date End Date George Rodriguez MD [address] [place] [address] PCP - General Family Medicine 08/14/22 Kendell Eaton MD [address] [place] [address] Referring Physician Obstetrics and Gynecology 11/29/21 Bebe Blue MD [address] [place] [address] Consulting Physician Gastroenterology 11/23/22
[2024-09-13] MEDS: SODIUM CHLORIDE 0.9% IV 1,000 ML 999 ML IV CONT (08:56)
[2024-09-13] MEDS: ONDANSETRON INJ 4 MG/2 ML VIAL IV PUSH (08:56)
[2024-09-13 09:07] LABS: Add Urine Microscopic? YES; Appearance Urine Turbid (Clear)
[2024-09-13 09:08] LABS: Glucose Urine UA Negative (Negative); Leukocyte Esterase Ur Trace LEU/UL (Negative); Nitrate Urine Negative (Negative); Specific Grav Ur 1.030 (1.001-1.035)
[2024-09-13] MEDS: POTASSIUM BICARBONATE 25 MEQ TABEF PO (09:10)
--- NOTE | 2024-09-13 09:15 | PC.NURSE ---
Pt had some nausea with spitting up spit after drinking potassium. No orange drink noticed in bag
[2024-09-13 09:17] VITALS: BP 174/103; PULSE 94; RESP 20; O2SAT 97
[2024-09-13 09:24] LABS: Magnesium 2.1 mg/dL (1.6-2.3)
[2024-09-13 09:34] LABS: Influenza A QL RT-PCR Negative (Negative); Influenza B QL RT-PCR Negative (Negative); SARS-CoV-2 RNA PCR Negative (Negative)
[2024-09-13 10:00] LABS: Thyroid Stimulating Hormone 0.786 uIU/mL (0.465-4.680)
--- NOTE | 2024-09-13 10:01 | PC.NURSE ---
Pt states nausea is better. Denies need to have BM. Informed to let us know if she needs to go so it can be collected. Pt states understanding.
[2024-09-13 10:40] VITALS: BP 155/94; PULSE 97; RESP 18; O2SAT 99
[2024-09-13 13:12] LABS: Toxigenic C. Diff POSITIVE (NEGATIVE)
== END 2024-09-13 10:42 | disposition home or self-care (01) ==
PROVIDERS: Emergency Provider Student in an Organized Health Care Education/Training Program; PCP Family Medicine
DX: K52.9 Noninfective gastroenteritis and colitis, unspecified (principal); N92.0 Excessive and frequent menstruation with regular cycle; E87.6 Hypokalemia; R82.998 Other abnormal findings in urine; Z20.822 Contact with and (suspected) exposure to COVID-19; Z86.2 Personal history of diseases of the blood and blood-forming organs and certain disorders involving the immune mechanism
CPT/HCPCS: 36415; 80053; 81001; 81025; 83690; 83735; 84443; 85025; 87086; 87493; 87636; 96361; 96374; 99284; A9270; J2405; J7030